=== PATIENT | male | born 1985 | race Caucasian/White ===

== ENCOUNTER 2019-05-20 05:22 | Observation (INO) | payer SELFPAY ==
[2019-05-20] VITALS (21 sets, daily range): BP systolic 108–176; BP diastolic 72–114; PULSE 81–102; RESP 14–22; TEMP 35.7–36.6; O2SAT 94–100; BMI 25.2
--- NOTE | 2019-05-20 | ECHO_ITS ---
Patient Info Name: Guero Hoover Age: 33 years : 1985 Gender: Male Ht: 67 in Wt: 159 lbs BSA: 1.86 m2 HR: 88 bpm BP: 149 / 94 mmHg Technical Quality: Good Exam Date: 05/20/2019 1:11 PM Exam Location: [facility] Pulmonary Patient Status: Outpatient Admit Date: 05/20/2019 Staff Ordering Physician: Rohith Mcneil DO Technology Manager: Sola Tello RDCS Attending Provider: Shiraz Pena MD Referring Physician: Tarun CALERO; Exam Type: CA echo doppler color flow Study Info Indications - ELEVATED TROPONIN R07.89 - Other chest pain - AORTIC VALVE REPLACEMENT Complete two-dimensional, color flow and Doppler transthoracic echocardiogram is performed. Summary 1. Left ventricular chamber dimension is normal. 2. Left ventricular systolic function is normal, estimated at 60-65%. 3. There is moderately increased left ventricular wall thickness. 4. The left ventricular diastolic function is abnormal. 5. E/e' 10 is mildly elevated. 6. Global longitudinal strain is abnormal at -13.9%. 7. The mechanical aortic valve is not well visualized. 8. There is no mechanical aortic valve stenosis. 9. There is no regurgitation of the mechanical aortic valve. 10. There is trace tricuspid valve regurgitation. 11. No pulmonary hypertension, estimated pulmonary arterial systolic pressure is 31 mmHg. Left Ventricle E/e' 10 is mildly elevated. Global longitudinal strain is abnormal at -13.9%. Left ventricular chamber dimension is normal. Left ventricular systolic function is normal, estimated at 60-65%. There is moderately increased left ventricular wall thickness. The left ventricular diastolic function is abnormal. Right Ventricle Right ventricular chamber dimension is normal. Right ventricular systolic function is normal. Left Atria Left atrial chamber dimension is normal. Right Atria Right atrial chamber dimension is normal. Aortic Valve The mechanical aortic valve is not well visualized. There is no mechanical aortic valve stenosis. There is no regurgitation of the mechanical aortic valve. Pulmonic Valve There is no pulmonic regurgitation. Mitral Valve There is no mitral valve stenosis. There is no mitral valve regurgitation. Tricuspid Valve There is trace tricuspid valve regurgitation. No pulmonary hypertension, estimated pulmonary arterial systolic pressure is 31 mmHg. Pericardium/Pleural There is no pericardial effusion. Inferior Vena Cava Normal inferior vena cava with >50% collapse upon inspiration consistent with normal right atrial pressure, 5 mmHg. Aorta The aortic root size at the sinus of Valsalva is normal. Left Ventricular Outflow Tract Name Value Normal LVOT 2D LVOT Diameter 2.0 cm LVOT Doppler LVOT Peak Gradient 30 mmHg LVOT Mean Gradient 19 mmHg LVOT VTI 57 cm LVOT VTI/AV VTI Ratio 0.9 LVOT Stroke Volume 187 ml LVOT CO 14.0 l/min LVOT CI 7.5 l/min/m2
--- NOTE | ~2019-05-20 | XR_ITS ---
EXAMINATION: XR chest 2V DATE: 05/20/2019 06:20 INDICATION: Chest pain. TECHNIQUE: Frontal and lateral views of the chest were obtained. COMPARISON: None. FINDINGS: The chest demonstrates clear lungs without pneumonia, pleural effusion, or pneumothorax. Th e heart size is normal. There are changes of heart valve replacement. IMPRESSION: 1. No acute cardiopulmonary disease. Reviewed, dictated and finalized at location A. [facility]
--- NOTE | 2019-05-20 05:45 | ECG_ITS ---
Measurements Intervals [place] Rate: 93 P: 119 VT: 162 QRS: 173 QRSD: 103 T: 152 QT: 363 QTc: 452 Interpretive Statements SINUS RHYTHM ARM LEADS REVERSED BASELINE ARTIFACT- I, II, III ATYPICAL ECG Electronically Signed On 05-20-2019 7:09:01 TRAINING MANAGER by Rohith Mcneil D.O.
[2019-05-20 06:02] LABS: Basophils Absolute Auto 0.1 K/mm3 (0.0-0.1); Basophils Percent Auto 0.5 % (0.2-1.2); Eosinophils Absolute Auto 0.1 K/mm3 (0-0.3); Eosinophils Percent Auto 0.6 % (0-4.4); Hematocrit 47.6 % (42.0-52.0); Hemoglobin 16.8 g/dL (14.0-18.0); Immature Granulocyte Absolute 0.05 K/mm3 (0.00-0.031); Immature Granulocyte Percent A 0.5 % (0-0.5); Lymphocytes Absolute Auto 1.12 K/mm3 (0.9-3.2); Lymphocytes Percent Auto 11.1 % (18.3-44.2); Mean Corpuscular HGB Conc 35.3 g/dl (32-36); Mean Corpuscular Hemoglobin 29.8 pg (26-34); Mean Corpuscular Volume 84.5 fl (80-100); Mean Platelet Volume 10.6 fl (7.4-10.4); Monocytes Percent Auto 9.7 % (2.6-8.5); Neutrophils Absolute Auto 7.9 K/mm3 (1.3-6.7); Neutrophils Percent Auto 77.6 % (45.5-73.1); Platelet Count Result 253 k/mm3 (150-375); Red Blood Count 5.63 M/mm3 (4.6-6.20); Red Cell Distribution Width 13.7 % (11.5-14.5); White Blood Count 10.1 K/mm3 (4.5-10.0)
--- NOTE | 2019-05-20 06:07 | ED.GENADULT ---
HPI - General Adult General Chief complaint: Chest Pain Stated complaint: Chest Pain Time Seen by Provider: 05/20/19 06:03 Source: patient and EMS Mode of arrival: EMS Limitations: no limitations History of Present Illness HPI narrative: Patient is a 33-year-old male with a history of aortic valve replacement who presents for evaluation of chest pain. Patient presented for evaluation of chest pain that awakened him from sleep. Reports the pain was sharp in nature located over the left chest with radiation to his back. He denies any history of chest pain such as this in the past. He reports feeling nauseated, no emesis. No shortness of breath. He for reports feeling warm. No jaw or shoulder pain. Patient is compliant with his anticoagulation. His aortic valve replacement was many years ago for a bicuspid valve at [facility]. He has had no complications from the surgery. Patient denies alcohol use, reports daily cigarette use approximately 1 pack/week, denies drug use, although EMS report stated that patient had been recently using methamphetamines. No recent heavy lifting. No numbness. Related Data Allergies Allergy/AdvReac Type Severity Reaction Status Date / Time No Known Allergies Allergy Mild Verified 05/20/19 07:15 Review of Systems Review of Systems: Narrative: CONSTITUTIONAL: Denies fever, chills, or sweats. CARDIOVASCULAR: Reports chest pain, denies palpitations or edema RESPIRATORY: Reports dry cough, denies dyspnea GASTROINTESTINAL: Denies abdominal pain, reports nausea, denies vomiting or diarrhea GENITOURINARY: Denies dysuria or hematuria. SKIN: Denies rash or itching. MUSCULOSKELETAL: Denies back pain, joint pain, or myalgia. NEUROLOGIC: Denies headache, numbness, or weakness. [facility] Past Medical History Medical History (Updated 05/20/19 @ 07:35 by Tory Weston MD) Bicuspid aortic valve Hypertension Surgical History Surgical History (Updated 05/20/19 @ 06:38 by Tory Weston MD) H/O aortic valve replacement Social History Social History (Updated 05/20/19 @ 06:38 by Tory Weston MD) Smoking status: Current every day smoker Tobacco type: cigarettes Alcohol intake: former Substance use: former Living arrangements: with family Gender identity (if verbalized by the patient): Male Exam Narrative: Exam Narrative: GENERAL: Well-appearing, well-nourished, and in no acute distress. HEAD: Normocephalic, atraumatic. EYES: PERRLA and EOMI. ENT: Nares clear, no rhinorrhea or epistaxis. Mucous membranes moist. NECK: Supple. CHEST: Clear to auscultation. No respiratory distress. No chest wall tenderness over the left chest. HEART: Regular rate and rhythm. No murmur heard. Normal peripheral pulses. ABDOMEN: Soft, no epigastric tenderness, no umbilical tenderness, nontender, nondistended, normal active bowel sounds. No guarding. EXTREMITIES: Normal range of motion. No edema. SKIN: Warm, dry, no rash. NEURO: No focal deficits. Alert and oriented x3 Course Vital Signs Vital signs: Vital Signs Pulse Rate 93 05/20/19 05:23 Temperature 36.5 C 05/20/19 05:24 Pulse Rate 92 05/20/19 07:28 Respiratory Rate 14 05/20/19 07:28 Blood Pressure 167/114 H 05/20/19 07:28 Pulse Oximetry 100 05/20/19 07:28 Medical Decision Making [facility] Narrative Medical decision making narrative: Patient presented for evaluation of chest pain. Given history and risk factors, he does have a heart score of 4. We have a urine drug screen pending on this point, although patient does deny history of drug use, there was some different collateral history provided by EMS regardless of this, the patient's troponin is mildly elevated. Cardiology was consulted, we will keep him for troponin monitoring and symptom management. I did feel his EKG looked improved following treatment with nitroglycerin and pain medication. I do not feel the patient requires heparin at this point given he is a
[2019-05-20 06:12] LABS: Prothrombin Time 13.2 Seconds (11.1-14.7)
[2019-05-20 06:13] LABS: Partial Thromboplastin Time 29.9 SECONDS (22.3-36.8)
[2019-05-20 06:14] LABS: Blood Urea Nitrogen 26 mg/dL (9-20); Calcium 9.1 mg/dL (8.4-10.2); Carbon Dioxide 17 mmol/L (22-30); Chloride 100 mmol/L (98-107); Estimated CRCL calculation 79 ml/min; Estimated Glomerular Filt Rate > 60; Glucose 71 mg/dL (75-110); Potassium 4.1 mmol/L (3.4-5.0); Sodium 134 mmol/L (137-145)
[2019-05-20 06:29] LABS: Troponin I 0.058 ng/mL (0.000-0.034)
--- NOTE | 2019-05-20 06:34 | ECG_ITS ---
Measurements Intervals [place] Rate: 92 P: 57 VA: 163 QRS: 13 QRSD: 102 T: 46 QT: 380 QTc: 472 Interpretive Statements SINUS RHYTHM BASELINE ARTIFACT- I, II, AVR, AVF NORMAL ECG Electronically Signed On 05-20-2019 7:09:23 GRAPHOTYPE OPERATOR by Rohith Mcneil D.O.
[2019-05-20] MEDS: ASPIRIN 81 MG CHEWABLE TABLET 324 MG PO (06:55)
[2019-05-20] MEDS: ONDANSETRON INJ 4 MG/2 ML VIAL IV PUSH (07:27)
[2019-05-20] MEDS: SODIUM CHLORIDE 0.9% IV 500 ML 999 ML IV CONT (07:27)
[2019-05-20] MEDS: MORPHINE SULFATE 4 MG/ML INJ IV PUSH (07:28)
[2019-05-20] MEDS: NITROGLYCERIN SL 0.4 MG TABLET SUBLINGUAL (07:28)
--- NOTE | 2019-05-20 07:32 | PC.NURSE ---
1 Nitro 0.4mg SL given at 0732 vitals are as follows BP 108/79 RR 20 SpO2 100% room air HR 99 pain 8/10 2nd Nitro 0.4 held, patient refused medication BP 159/101 RR 16 SpO2 100% HR 100 pain 7
--- NOTE | 2019-05-20 08:24 | PC.NURSE ---
Patient requesting mother and father to visit in ED, per Eleno RICHARDS, patient is not allowed visitors. Patient made aware.
--- NOTE | 2019-05-20 08:29 | PC.NURSE ---
This attempted to call patient's parents x2 home phone [phone] cell phone [phone] Patient's father called back and was updated on patient's condition and care plan. Father (Guero) states that he understood and not give him any vitamin K while here. Patient made aware that parents were contacted.
--- NOTE | 2019-05-20 08:35 | PC.NURSE ---
Patient refused to give urine sample
--- NOTE | 2019-05-20 09:30 | PC.NURSE ---
This patient, Guero Hoover III, was admitted to IMU Room 214-01. Patient/family oriented to hospital policies and general routines including ID bracelet, bed and alarms, visiting hours, pain management, procedures, bathroom and other care routines, personal items, smoking policy, room service/diet, and visiting hours. Valuables list has been completed. Information on how to activate the Rapid Response Team has been discussed. Patient/Family are encouraged to report perceived risks to care and to ask questions if they do not understand what they are told or what they should do.
[2019-05-20 10:52] LABS: Troponin I 0.054 ng/mL (0.000-0.034)
--- NOTE | 2019-05-20 12:44 | PM.IMHP ---
H&P: HPI History of Present Illness Chief complaint: Chest Pain/Elevated troponin Narrative: Guero Hoover III is a 33 year old male who is a poor historian at this time. The patient is covering his eyes will not look at me or answer any of my questions. However the nurse tells me that he was just alert oriented x3 was answering questions without difficulty. He told the nurse that he has aortic valve replacement from when he was about 14 years old. This was performed at [facility].The patient told the nurse that he did take Coumadin this morning however his INR is only 1.0. He is sub therapeutic reviewing his past INRs he has been sub therapeutic for quite some time. However he did tell the nurse that he is still on Coumadin. The patient told the nurse that he was eluting the police officials not say why. Patient came in with complaints of chest pain that was sharp in nature located on the left chest with radiation to his back patient was also feeling nauseated but did not have any emesis. No shortness of breath. Patient continues to smoke about 2 packs of cigarettes a day. EMS reports poor stated that the patient had been recently using methamphetamines. Date of service 05/20/2019 patient's troponin levels were 0.058, 0.054, and 0.050. Patient is currently resting with his eyes closed and will not open them to answer my questions. Review of Systems Review of Systems: Narrative: Unable to retrieve information from the patient as he is covering his eyes answer any my questions. All systems reviewed & are unremarkable except as noted in HPI and below Constitutional: Constitutional: Reports as per HPI and Reports no additional constitutional complaints Eyes: Eyes: Reports as per HPI and Reports no additional eye complaints ENT: Reports system reviewed and no additional complaints, except as documented and Reports Normal hearing present Cardiovascular: Cardiovascular: Reports no additional cardiovascular complaints Respiratory: Respiratory: Reports no additional respiratory complaints and Reports no additional respiratory complaints Gastrointestinal: Gastrointestinal: Reports as per HPI and Reports no additional gastrointestinal complaints Musculoskeletal: Musculoskeletal: Reports no additional musculoskeletal complaints Integumentary/Breasts: Skin/Breast: Reports system reviewed and no additional complaints, except as docu and Reports as per HPI Neurologic: Reports system reviewed and no additional complaints, except as documented, Reports as per HPI and Reports Normal hearing present Psychiatric: Psychiatric: Reports no additional psychiatric complaints and Reports as per HPI Endocrine: Endocrine: Reports no additional endocrine complaints Hematologic/Lymphatic: Hematologic/Lymphatic: Reports no additional hematologic/lymphatic complaints Allergic/Immunologic: Allergic/Immunologic: Reports no additional allergic/immunologic complaints [facility] Past Medical History Medical History (Updated 05/20/19 @ 12:56 by Monique Corral NP) Amphetamine use disorder, mild As per EMS report. Bicuspid aortic valve Hypertension Surgical History Surgical History H/O aortic valve replacement Family History Family History Father Hypertension Other Cerebrovascular accident Social History Social History (Updated 05/20/19 @ 13:11 by Monique Corral NP) Social History: Patient lives with his parents. According to the nurse the patient decided to be a full code. Who reported to the nurse that he uses marijuana. And that he also smokes 2 cigarettes a day for the last 2 years. Years smoked: 2 Smoking status: Light tobacco smoker Tobacco type: cigarettes Alcohol intake: former Substance use: current Substance use type: marijuana Last use: daily Living arrangements: with family Occupation/Education
--- NOTE | 2019-05-20 13:08 | PM.CNCAR ---
Assessment and Plan Assessment and plan (1) Bicuspid aortic valve: Code(s): Q23.1 - Congenital insufficiency of aortic valve Status: Chronic Assessment and Plan: Per records, he had AVR. If it is a mechanical aortic valve, then he would need heparin drip or Lovenox bridge with Coumadin to INR 2.5. Obtain echo if he allows. (2) Atypical chest pain: Code(s): R07.89 - Other chest pain Status: Acute Assessment and Plan: No longer with chest pain. (3) Elevated troponin: Code(s): R79.89 - Other specified abnormal findings of blood chemistry Status: Acute Assessment and Plan: Mild and flat. Could be related to Methamphetamines. Would obtain Lexiscan myoview stress test if he is willing. History of Present Illness History of Present Illness Consult date/time: 05/20/19 13:08 Consult regarding chest pain. 33 yr old man who is not communicating with me or answering any of my questions. His eyes are closed and he just mumbles uh huh to everything I ask. I saw him in ER earlier but he refused to see me at the time and he had eyes open and speaking with security. I left and now I returned to speak with him on the medical floor. He is not willing to speak to me. He does not appear to be in distress and no pain at this time. Per the ER note he had chest pain that woke him up. Troponin is flat and slightly elevated. There is suspicioun he used methamphetamines. Per the notes he has a history of bicuspid aortic valve and AVR and on Coumadin for it, though levels are very subtherapeutic. Cannot obtain ROS. Reason For Visit: Chest Pain/Elevated troponin [facility] Past Medical History Medical History (Updated 05/20/19 @ 12:56 by Monique Corral NP) Amphetamine use disorder, mild As per EMS report. Bicuspid aortic valve Hypertension Surgical History Surgical History H/O aortic valve replacement Family History Family History Father Hypertension Other Cerebrovascular accident Social History Social History (Updated 05/20/19 @ 12:50 by Monique Corral NP) Social History: Patient lives with his parents. According to the nurse the patient decided to be a full code. Who reported to the nurse that he uses marijuana. And that he also smokes 2 cigarettes a day for the last 2 years. Years smoked: 2 Smoking status: Light tobacco smoker Tobacco type: cigarettes Alcohol intake: former Substance use: current Substance use type: marijuana Last use: daily Living arrangements: with family Occupation/Education: other Gender identity (if verbalized by the patient): Male Spiritual care concerns: No Agree to blood products: Yes Meds Home Medications and Allergies Home Medications Medication Instructions Recorded Confirmed Type warfarin 5 mg PO DAILY 05/20/19 05/20/19 History Allergies Allergy/AdvReac Type Severity Reaction Status Date / Time No Known Allergies Allergy Mild Verified 05/20/19 08:39 Vital Signs Vital Signs - 24 hr 05/20/19 05:23 05/20/19 05:24 05/20/19 07:28 Temperature 97.7 F Pulse Rate 93 98 92 Respiratory Rate 22 H 14 Blood Pressure 176/100 H 167/114 H Pulse Oximetry 99 100 05/20/19 07:32 05/20/19 07:38 05/20/19 07:42 Temperature Pulse Rate 92 100 101 H Respiratory Rate 17 18 19 Blood Pressure 108/79 159/101 H 153/93 H Pulse Oximetry 99 99 100 05/20/19 08:01 05/20/19 08:16 05/20/19 09:15 Temperature Pulse Rate 100 93 93 Respiratory Rate 15 15 18 Blood Pressure 130/88 149/94 H Pulse Oximetry 100 100 05/20/19 09:29 05/20/19 10:00 05/20/19 11:52 Temperature 97.7 F 97.1 F L Pulse Rate 93 93 93 Respiratory Rate 20 22 H Blood Pressure 154/85 H 124/75 Pulse Oximetry 100 96 05/20/19 12:00 05/20/19 12:32 Temperature Pulse Rate 93 Respiratory Rate 22 H Blood Pr
[2019-05-20] MEDS: HEPARIN SODIUM 5,000 UNITS/ML VIAL 6000 UNITS IV PUSH (13:54)
[2019-05-20] MEDS: HEPARIN SOD/D5W 100 UNITS/ML 25,000 UNITS/250 ML BAG 13 UNITS IV CONT (13:55)
[2019-05-20 15:09] LABS: Basophils Absolute Auto 0.1 K/mm3 (0.0-0.1); Basophils Percent Auto 0.7 % (0.2-1.2); Eosinophils Absolute Auto 0.3 K/mm3 (0-0.3); Eosinophils Percent Auto 4.7 % (0-4.4); Hematocrit 42.7 % (42.0-52.0); Immature Granulocyte Absolute 0.03 K/mm3 (0.00-0.031); Immature Granulocyte Percent A 0.4 % (0-0.5); Lymphocytes Absolute Auto 1.99 K/mm3 (0.9-3.2); Lymphocytes Percent Auto 27.5 % (18.3-44.2); Mean Corpuscular HGB Conc 35.1 g/dl (32-36); Mean Corpuscular Hemoglobin 29.9 pg (26-34); Mean Corpuscular Volume 85.2 fl (80-100); Mean Platelet Volume 10.9 fl (7.4-10.4); Monocytes Absolute Auto 0.9 K/mm3 (0.1-0.6); Neutrophils Absolute Auto 3.9 K/mm3 (1.3-6.7); Neutrophils Percent Auto 53.7 % (45.5-73.1); Platelet Count Result 219 k/mm3 (150-375); Red Blood Count 5.01 M/mm3 (4.6-6.20); Red Cell Distribution Width 13.7 % (11.5-14.5); White Blood Count 7.2 K/mm3 (4.5-10.0)
[2019-05-20 15:20] LABS: INR 1.2
[2019-05-20 20:55] LABS: Partial Thromboplastin Time > 200.0 SECONDS (22.3-36.8)
[2019-05-21] VITALS (8 sets, daily range): BP systolic 127–139; BP diastolic 64–83; PULSE 67–96; RESP 16–20; TEMP 36.7–36.8; O2SAT 97–99
[2019-05-21 04:46] LABS: Basophils Percent Auto 0.8 % (0.2-1.2); Eosinophils Absolute Auto 0.4 K/mm3 (0-0.3); Eosinophils Percent Auto 6.6 % (0-4.4); Hematocrit 43.7 % (42.0-52.0); Hemoglobin 15.5 g/dL (14.0-18.0); Immature Granulocyte Absolute 0.01 K/mm3 (0.00-0.031); Immature Granulocyte Percent A 0.2 % (0-0.5); Lymphocytes Absolute Auto 1.92 K/mm3 (0.9-3.2); Lymphocytes Percent Auto 36.4 % (18.3-44.2); Mean Corpuscular HGB Conc 35.5 g/dl (32-36); Mean Corpuscular Volume 84.7 fl (80-100); Mean Platelet Volume 10.4 fl (7.4-10.4); Monocytes Absolute Auto 0.6 K/mm3 (0.1-0.6); Neutrophils Absolute Auto 2.4 K/mm3 (1.3-6.7); Platelet Count Result 196 k/mm3 (150-375); Red Blood Count 5.16 M/mm3 (4.6-6.20); Red Cell Distribution Width 13.5 % (11.5-14.5); White Blood Count 5.3 K/mm3 (4.5-10.0)
[2019-05-21 04:55] LABS: INR 1.1; Prothrombin Time 14.3 Seconds (11.1-14.7)
[2019-05-21 04:57] LABS: Partial Thromboplastin Time 91.1 SECONDS (22.3-36.8)
[2019-05-21 05:21] LABS: Alanine Aminotransferase 24 U/L (4-50); Alkaline Phosphatase 71 U/L (38-126); Aspartate Amino Transferase 35 U/L (17-59); Bilirubin,Total 0.6 mg/dL (0.2-1.3); Blood Urea Nitrogen 20 mg/dL (9-20); Calcium 8.6 mg/dL (8.4-10.2); Carbon Dioxide 26 mmol/L (22-30); Chloride 100 mmol/L (98-107); Estimated CRCL calculation 95 ml/min; Estimated Glomerular Filt Rate > 60; Glucose 103 mg/dL (75-110); Magnesium 2.1 mg/dL (1.6-2.3); Potassium 3.9 mmol/L (3.4-5.0); Sodium 135 mmol/L (137-145)
[2019-05-21 05:57] LABS: Thyroid Stimulating Hormone Reflex 0.295 uIU/mL (0.465-4.68)
[2019-05-21 07:04] LABS: Add Urine Microscopic? YES; Appearance Urine Clear (Clear); Bilirubin Urine Negative (Negative); Blood Urine Negative (Negative); Color Urine Yellow (Yellow); Glucose Urine UA Negative (Negative); Hyaline Casts Urine 20-29 /lpf; Ketones Urine Trace mg/dL (Negative); Leukocyte Esterase Ur Negative LEU/UL (Negative); Mucus Urine Rare /lpf; Nitrate Urine Negative (Negative); Protein Urine Negative (Negative); RBC Urine 0-2 /hpf (0-2); Specific Grav Ur 1.021 (1.001-1.035); Squamous Epithelial Cell Urine Rare /hpf (Few); Urobilinogen Urine Negative mg/dL (<2.0)
[2019-05-21 07:12] LABS: Barbiturate Screen Urine Negative (Negative); Benzodiazepines Screen Urine Negative (Negative)
[2019-05-21 07:25] LABS: Cannabinoid Screen Urine Positive (Negative); Cocaine Screen Urine Negative (Negative); Methadone Screen Urine Negative (Negative); Opiate Screen Urine Positive (Negative); Phencyclidine Screen Urine Negative (Negative)
[2019-05-21 07:52] LABS: Amphetamine Screen Urine Positive (Negative)
[2019-05-21] MEDS: ACETAMINOPHEN 325 MG TABLET 650 MG PO (08:21)
--- NOTE | 2019-05-21 08:26 | PM.PNCARD ---
Progress Note: A&P Assessment and Plan (1) Atypical chest pain: Code(s): R07.89 - Other chest pain Status: Acute Assessment and Plan: Resolved. (2) Elevated troponin: Code(s): R79.89 - Other specified abnormal findings of blood chemistry Status: Acute Assessment and Plan: Probably related to methamphetamine use. Echo shows no wall motion abnormality with normal EF. No further cardiac workup needed at this time. (3) H/O mechanical aortic valve replacement: Code(s): Z95.2 - Presence of prosthetic heart valve Status: Acute Assessment and Plan: Replacement for a unicuspid valve. Advise the importance of keeping INR 2.5-3.0 as he missed about a week's worth of warfarin recently. He is on heparin drip now and warfarin restarted. He may go home on Lovenox shots (if affordable) 1 mg/kg SQ q 12 hours along with warfarin daily and check INR in 3 days. He can either obtain a PCP or return to same [facility] group though his car body designer left the practice, or he can f/u with me. Subjective Date/time seen: 05/21/19 08:26 He is awake and cooperative this morning. Denies any more chest pain. No sob. He had a unicuspid aortic valve that was replaced with mechanical aortic valve. He was seeing a car body designer with [facility] but the car body designer moved away. He has no insurance and no PCP. Exam Const: General: comfortable and no acute distress Neck: Neck: no JVD Carotids: no bruits Resp: Auscultation: clear to auscultation bilaterally, no crackles, no rales, no rhonchi and no wheezes Cardio: Rate: regular rate Rhythm: regular rhythm Heart sounds: no murmurs GI: Inspection: non-distended Neuro: Speech: normal speech Extrem: Right lower extremity: no edema Left lower extremity: no edema Objective Data Vital Signs Vital Signs: Vital Signs - 24 hr 05/20/19 09:15 05/20/19 09:29 05/20/19 10:00 Temperature 97.7 F Pulse Rate 93 93 93 Respiratory Rate 18 20 Blood Pressure 154/85 H Pulse Oximetry 100 100 05/20/19 11:52 05/20/19 12:00 05/20/19 12:32 Temperature 97.1 F L Pulse Rate 93 102 H Respiratory Rate 22 H 22 H Blood Pressure 124/75 Pulse Oximetry 96 96 94 05/20/19 14:00 05/20/19 16:00 05/20/19 16:51 Temperature 96.2 F L Pulse Rate 101 H 89 87 Respiratory Rate 22 H 22 H Blood Pressure 130/79 Pulse Oximetry 94 98 05/20/19 18:00 05/20/19 19:55 05/20/19 20:00 Temperature 97.8 F Pulse Rate 81 92 88 Respiratory Rate 20 Blood Pressure 119/72 Pulse Oximetry 99 05/20/19 22:00 05/21/19 00:00 05/21/19 02:00 Temperature 98.2 F Pulse Rate 82 81 74 Respiratory Rate 20 Blood Pressure 127/83 Pulse Oximetry 97 05/21/19 04:00 05/21/19 06:00 05/21/19 07:13 Temperature 98.0 F 98.0 F Pulse Rate 67 73 67 Respiratory Rate 18 20 Blood Pressure 130/77 129/64 Pulse Oximetry 99 98 Intake/Output Intake/Output: Intake & Output 05/18/19 05/19/19 05/20/19 05/21/19 23:59 23:59 23:59 23:59 Intake Total 1410 1303 Output Total 650 Balance 1410 653 Meds/Results Medications: Active Medications Generic Name Dose Route Start Last Admin Trade Name Freq PRN Reason Stop Dose Admin Acetaminophen 650 mg 05/20/19 07:28 05/21/19 08:21 Tylenol Tablet PO 650 mg Q4H PRN Administration Mild Pain (1-3) or Fever Heparin Sodium (Porcine) 6,000 units 05/20/19 13:15 Heparin Sodium IV PUSH PRN PRN aPTT less than 55 seconds Heparin Sodium (Porcine) 3,000 units 05/20/19 13:15 Heparin Sodium IV PUSH PRN PRN aPTT 55 - 70 seconds Heparin Sodium/Dextrose 25,000 units in 250 mls @ 11 mls/hr 05/20/19 13:15 05/21/19 05:49 Heparin Sodium/D5w 100 Units/Ml IV CONT 1,100 units/hr .[id number] AKUA 11 mls/hr Titration Protocol 1,100 UNITS/HR Nitroglycerin 0.4 mg 05/20/19 07:28 Nitrostat Subl 0.4 Mg (1/150) SUBLINGUAL Q5MIN PRN Chest Pain Ondansetron
[2019-05-21 09:50] LABS: Free T4 Free Thyroxine Reflex 1.49 ng/dL (0.78-2.19)
[2019-05-21 10:39] LABS: Total Triiodothyronine (T3) 1.02 NG/ML (0.97-1.69)
[2019-05-21 10:43] LABS: Partial Thromboplastin Time 77.9 SECONDS (22.3-36.8)
--- NOTE | 2019-05-21 12:12 | PM.DS ---
DS: Diagnosis Admitting Diagnosis Admitting Diagnosis: Other chest pain Discharge Diagnosis (1) Atypical chest pain: Code(s): R07.89 - Other chest pain Status: Acute Assessment and Plan: Patient's troponin levels are stable. There level and unchanged. The patients urine drug screen was positive for opiates, amphetamines and cannabinoids. Dr. Mcneil was consulted and he evaluated the patient and read his echocardiogram which showed Left ventricular chamber dimension is normal, Left ventricular systolic function is normal, estimated at 60-65%. There is moderately increased left ventricular wall thickness. The left ventricular diastolic function is abnormal. The mechanical aortic valve is not well visualized. The patient is not having any more chest discomfort at this time and is stable for discharge home. The patient can follow up with [facility] or can follow up with Dr. Mcneil in the office. He understands and agrees with the plan at this time. All questions answered (2) Elevated troponin: Code(s): R79.89 - Other specified abnormal findings of blood chemistry Status: Acute Assessment and Plan: Patient's troponin levels are unchanged. He denies any chest pain at this time. He is stable for discharge to follow up with Cardiology. (3) Bicuspid aortic valve: Code(s): Q23.1 - Congenital insufficiency of aortic valve Status: Chronic Assessment and Plan: Continue with patient's Coumadin for now as he is subtherapeutic his INR is only 1.0. Will continue to monitor and recheck in 2 days. (4) Subtherapeutic international normalized ratio (INR): Code(s): R79.1 - Abnormal coagulation profile Status: Acute Assessment and Plan: INR was 1.[address] Mcneil Cardiology who agreed with the patient to continue on Coumadin therapy and recommended Lovenox SQ injections while his INR is subtherapeutic. Discharge on continued Coumadin Therapy 5 mg daily and SubQ Lovenox 74mg Q12hrs for 7 days. I explained to the patient that it is very important that he take his Coumadin daily and get his INR checked regularly and continue with Coumadin diet. Will have the patient check his INR in 2 days, Sunday. DS: Summary Hospital Course Reason for hospitalization: The patient is a 33 year old man with a history of Aortic valve replacement when he was 14 years old and substance abuse, who presented to the ER with symptoms of chest pain. Vitals showed temperature of 97.7?, blood pressure 176/100, heart rate 98, respiratory rate 22, oxygen saturation 99% on room air. Labs showed slight leukocytosis at 10,100, normal coag panel with INR at 1.0 which is subtherapeutic while Coumadin, hyponatremia 134, serum bicarbonate 17, creatinine 1.1, BUN 26, otherwise normal. Initial troponin was 0.058, then repeat was 0.050 trending down. Patient had a normal urinalysis. His urine drug screen was positive for opiates, amphetamines and cannabinoids. EKG showed normal sinus rhythm with a heart rate of 93, baseline artifact otherwise no acute ST-T wave abnormality. Chest x-ray showed acute cardiopulmonary disease. Echocardiogram showed normal systolic function of the EF is 60-65%, moderate LVH, mechanical aortic valve which was not well visualized. Patient was admitted into the hospital under observation status for further evaluation of chest pain and had a cardiology consult. Cardiology evaluated the patient and felt that his elevated troponins were most likely from his amphetamine use. Since his INR was subtherapeutic we discharged the patient to continue taking his Coumadin and added Lovenox injections subcuq q.12 hours for 7 days and until his INR is therapeutic. He follows up at [facility] with Pr
== END 2019-05-21 14:21 | disposition home or self-care (01) ==
LOC: ANHED 07:46 → ANHIMU 07:50
PROVIDERS: Emergency Medicine; Nurse Practitioner; Admitting Provider Internal Medicine; Emergency Provider Emergency Medicine; Visit Provider Physician Assistant
DX: R07.89 Other chest pain (principal); R79.89 Other specified abnormal findings of blood chemistry; R79.1 Abnormal coagulation profile; F19.10 Other psychoactive substance abuse, uncomplicated; R82.5 Elevated urine levels of drugs, medicaments and biological substances; F17.210 Nicotine dependence, cigarettes, uncomplicated; E87.1 Hypo-osmolality and hyponatremia; I10 Essential (primary) hypertension; Z87.74 Personal history of (corrected) congenital malformations of heart and circulatory system; Z79.01 Long term (current) use of anticoagulants; Z95.2 Presence of prosthetic heart valve
CPT/HCPCS: 36415; 71046; 80048; 80053; 80307; 81001; 83735; 84439; 84443; 84480; 84484; 85025; 85610; 85730; 93005; 93306; 96361; 96365; 96366; 96375; 99285; A9270; G0378; J1644; J2270; J2405; J7040

== ENCOUNTER 2020-07-27 16:22 | Outpatient (CLI) | payer BC, SELFPAY | END 2020-07-27 16:23 | disposition home or self-care (01) | LOC: ANHCOVIDVC 16:22 | DX: Z23 Encounter for immunization (principal) | CPT/HCPCS: 0001A; 91300 ==

== ENCOUNTER 2020-08-19 16:19 | Outpatient (CLI) | payer BC, SELFPAY | END 2020-08-19 16:20 | disposition home or self-care (01) | LOC: ANHCOVIDVC 16:19 | DX: Z23 Encounter for immunization (principal) | CPT/HCPCS: 0002A; 91300 ==

== ENCOUNTER 2020-09-24 09:17 | Outpatient (CLI) | payer BC, SELFPAY ==
--- NOTE | ~2020-09-24 | US_ITS ---
EXAMINATION: US abdomen complete EXAM DATE: 09/24/2020 10:10 INDICATION: Abdominal pain. TECHNIQUE: Multiple grayscale and Doppler images of the complete abdomen were obtained (by a technolo gist who performed the scan) and subsequently reviewed. There is no prior study for comparison. FINDINGS: The abdominal aorta is normal in caliber. Visualized portion IVC is patent. The pancreatic head a nd body are normal in appearance. The pancreatic tail is not visualized. There is echogenic liver parenchyma, hepatic steatosis. There are no focal liver lesions identified. There is no evidence of intrahepatic biliary duct dilation. Portal venous flow was seen in the he patopedal, normal direction and has normal Doppler waveform. Common bile duct measures 4 mm, which is normal. The gallbladder wall is normal in thickness, with ex pected amount of distention. No sonographic evidence of pericholecystic fluid. There is no cholelit hiases. Technologist performing exam reports patient did not demonstrate sonographic Rankin's sign. Please note that this sign is less reliable in patients who have received pain medication. Right kidney: There is normal contour and echogenicity. It measures 9.9 x 4.9 x 5.9 centimeters. T here are no focal renal lesions identified. There is no hydronephrosis. Left kidney: There is normal contour and echogenicity. It measures 9.8 x 4.5 x 4.6 centimeters. Th ere are no focal renal lesions identified. There is no hydronephrosis. The spleen measures 13 centimeters and is morphologically normal. IMPRESSION: 1. Hepatic steatosis. Reviewed, dictated and finalized at location A. IMPRESSION: 1. Hepatic steatosis.
== END 2020-09-24 09:18 | disposition home or self-care (01) ==
PROVIDERS: PCP Physician Assistant; Visit Provider Physician Assistant
DX: K76.0 Fatty (change of) liver, not elsewhere classified (principal)
CPT/HCPCS: 76700

== ENCOUNTER 2020-10-01 14:24 | Outpatient (CLI) | payer BC, SELFPAY ==
--- NOTE | 2020-10-01 | ECHO_ITS ---
Patient Info Name: Guero Hoover Age: 34 years : 1985 Gender: Male Ht: 67 in Wt: 215 lbs BSA: 2.18 m2 HR: 77 bpm BP: 154 / 93 mmHg Technical Quality: Fair Exam Date: 10/01/2020 2:53 PM Exam Location: [facility] Patient Status: Outpatient Admit Date: 10/01/2020 Staff Ordering Physician: LEAH MATAMOROS Line Decorator: Jasmyne Henderson RDCS Attending Provider: LEAH MATAMOROS Exam Type: CA echo doppler color flow Study Info Indications - AVR CONGENINTAL INSUFFICIENCY OF AOV Complete two-dimentional, color flow and Doppler transthoracic echocardiogram is performed with agitated saline and with contrast to opacify the left ventricle and to improve the delineation of the left ventricle endocardial borders. Complete two-dimensional, color flow and Doppler transthoracic echocardiogram is performed. Summary 1. Complete two-dimensional, color flow and Doppler transthoracic echocardiogram is performed. 2. Left ventricular chamber dimension is normal. 3. Left ventricular systolic function is normal, estimated at 60-65%. 4. There is mildly increased left ventricular wall thickness. 5. The left ventricular diastolic function is normal. 6. E/e' 7 is not elevated. 7. There is trace regurgitation of the mechanical aortic valve. 8. No pulmonary hypertension, estimated pulmonary arterial systolic pressure is 29 mmHg. 9. There is mild pulmonic regurgitation. Left Ventricle E/e' 7 is not elevated. Left ventricular chamber dimension is normal. Left ventricular systolic function is normal, estimated at 60-65%. There is mildly increased left ventricular wall thickness. The left ventricular diastolic function is normal. Right Ventricle Right ventricular chamber dimension is normal. Right ventricular systolic function is normal. Left Atria Left atrial chamber dimension is normal. Right Atria Right atrial chamber dimension is normal. Aortic Valve The mechanical aortic valve is not well visualized. There is no mechanical aortic valve stenosis. There is trace regurgitation of the mechanical aortic valve. Pulmonic Valve There is mild pulmonic regurgitation. Mitral Valve There is no mitral valve stenosis. There is no mitral valve regurgitation. Tricuspid Valve There is no tricuspid valve regurgitation. No pulmonary hypertension, estimated pulmonary arterial systolic pressure is 29 mmHg. Pericardium/Pleural There is no pericardial effusion. Inferior Vena Cava Normal inferior vena cava with >50% collapse upon inspiration consistent with normal right atrial pressure, 5 mmHg. Aorta The aortic root size at the sinus of Valsalva is normal. Left Ventricular Outflow Tract Name Value Normal LVOT 2D LVOT Diameter 2.2 cm LVOT Doppler LVOT Peak Gradient 5 mmHg LVOT Mean Gradient 3 mmHg LVOT VTI 28 cm LVOT VTI/AV VTI Ratio 0.4 LVOT Stroke Volume 105 ml LVOT CO 19.1 l/min LVOT CI 8
== END 2020-10-01 14:25 | disposition home or self-care (01) ==
PROVIDERS: PCP Physician Assistant
DX: Q23.1 Congenital insufficiency of aortic valve (principal); I37.1 Nonrheumatic pulmonary valve insufficiency
CPT/HCPCS: 93306

== ENCOUNTER 2020-12-01 10:03 | Outpatient (CLI) | payer BC, SELFPAY ==
--- NOTE | ~2020-12-01 | CT_ITS ---
EXAMINATION: CT diagnostic chest wo con DATE: 12/01/2020 10:18 INDICATION: Acquired subglottic stenosis TECHNIQUE: Computed tomography (CT) of the chest was performed without intravenous contrast. The dose -length product was 529.16 mGy-cm. Automated exposure control and iterative reconstruction technique were employed. COMPARISON: Chest x-ray dated 05/20/2019 FINDINGS: Heart size normal. No significant pleural or pericardial effusion. The upper abdomen is unr emarkable. No thoracic lymphadenopathy. Thyroid gland is within normal limits. There is a prosthetic aortic valve. No focal airspace consolidation. No endobronchial lesions. Calcified granulomas are pre sent in the left lung. No pneumothorax. Status post median sternotomy. No acute osseous abnormality. IMPRESSION: 1. No acute cardiopulmonary disease. Reviewed, dictated and finalized at location A.
== END 2020-12-01 10:04 | disposition home or self-care (01) ==
PROVIDERS: PCP Physician Assistant
DX: J38.6 Stenosis of larynx (principal)
CPT/HCPCS: 71250

== ENCOUNTER 2020-12-17 14:40 | Outpatient (CLI) | payer BC, SELFPAY ==
--- NOTE | ~2020-12-17 | CT_ITS ---
EXAMINATION: CT soft tissue neck w con DATE: 12/17/2020 15:33 INDICATION: Subglottic stenosis. TECHNIQUE: Computed tomography (CT) of the neck was performed with 75 mL Omnipaque-350 intravenous co ntrast. Automated exposure control and iterative reconstruction technique were employed. The dose-rojelio gth product was 506.72 mGy-cm. COMPARISON: Chest CT 12/01/2020 FINDINGS: A calcified left lung nodule is consistent with old granulomatous disease. The trachea is n ormal. There are no pathologically enlarged lymph nodes. The mastoid air cells are normal. There is a n old blowout fracture of floor of left orbit. There is kyphosis of cervical spine. Median sternotomy wires are noted. IMPRESSION: 1. Normal trachea. Reviewed, dictated and finalized at location A. IMPRESSION: 1. Normal trachea.
== END 2020-12-17 14:41 | disposition home or self-care (01) ==
LOC: ANHIMG 14:41
PROVIDERS: PCP Physician Assistant; Visit Provider Otolaryngology
DX: J38.6 Stenosis of larynx (principal)
CPT/HCPCS: 70491; Q9967

== ENCOUNTER 2021-01-10 06:41 | Emergency (ER) | payer BC, SELFPAY ==
[2021-01-10] VITALS (66 sets, daily range): BP systolic 128–216; BP diastolic 79–111; PULSE 60–124; RESP 9–21; TEMP 36.3–36.7; O2SAT 92–99
--- NOTE | ~2021-01-10 | CT_ITS ---
EXAMINATION: CT soft tissue neck w con EXAM DATE: 01/10/2021 10:30 INDICATION: Right jaw pain/facial pain. TECHNIQUE: Spiral CT of the neck was performed following intravenous injection of 75 mL Omnipaque 350 . Axial, coronal and sagittal images were reviewed. The dose-length product (DLP) for this examinat ion was 566.15 mGy-cm. The exposure was tailored according to patient size (auto mA exposure control ), and iterative reconstruction (ASIR) was used as additional dose reduction technique. Comparison is made to prior examination from 12/17/2020. FINDINGS: There is a focal fluid collection in the right temporalis muscle, medial to the mandible, m easuring 2.3 x 1.9 cm, with proteinaceous fluid/ fluid level most likely intramuscular hematoma. (see axial sequence 3 image 36). The proteinaceous component measures 65 Hounsfield units consistent with acute blood products. There is some edema along the right side of the face both superficial and loc p to the platysmas muscle. This is new compared to prior study earlier this month. The thyroid gland is unremarkable. The submandibular and parotid glands are symmetric. There is n o cervical lymphadenopathy. There are no masses identified. The superior mediastinum is unremarka ble. The airway is unremarkable. Parapharyngeal and pre-glottic fat planes are preserved. The o pacified vasculature is patent. The orbits are unremarkable. Visualized sinuses and mastoid air c ells are well aerated. Lung apices are clear. There is cervical spondylosis. IMPRESSION: Right filling separator space fluid collection with probable hematocrit/serum level indicating most likely acute intramuscular hematoma within the temporalis muscle. Reviewed, dictated and finalized at location A. IMPRESSION: Right filling separator space fluid collection with probable hematocrit/s tracee level indicating most likely acute intramuscular hematoma within the tempo ralis muscle.
--- NOTE | 2021-01-10 08:42 | ED.GENADULT ---
HPI - General Adult General Chief complaint: Dental/Oral <Alondra Masterson MD - Last Filed: 01/10/21 18:44> Stated complaint: Right dental pain, swelling <Alondra Masterson MD - Last Filed: 01/10/21 18:44> Time Seen by Provider: 01/10/21 06:52 <Alondar Masterson MD - Last Filed: 01/10/21 18:44> Source: patient <Alondra Masterson MD - Last Filed: 01/10/21 18:44> History of Present Illness HPI narrative: Patient is a 35 y/o male complaining of right facial and dental pain starting about 6 days ago. He describes his pain as aching and rates it as 9/10. He states that eating makes his pain worse. He had some dental work done 1 week ago. He has no fever or chills. <Alondra Masterson MD - Last Filed: 01/10/21 18:44> Related Data Home medications: Home Medications Medication Instructions Recorded Confirmed sertraline 50 mg tablet 50 mg PO DAILY 11/17/20 12/10/20 ascorbic acid (vitamin C) 100 mg 100 mg PO DAILY 12/10/20 12/10/20 chewable tablet hydralazine 25 mg tablet 50 mg PO BID tablet 12/10/20 12/10/20 melatonin 10 mg capsule 10 mg PO QHS 12/10/20 12/10/20 propranolol 40 mg tablet 40 mg PO BID tablet 12/10/20 12/10/20 <Alondra Masterson MD - Last Filed: 01/10/21 18:44> Allergies/adverse reactions: Allergies Allergy/AdvReac Type Severity Reaction Status Date / Time phytonadione (vitamin K1) Allergy Unknown Unknown Verified 01/10/21 08:48 <Alondra Masterson MD - Last Filed: 01/10/21 18:44> Review of Systems Constitutional: Constitutional: Denies chills, Denies fever(s), Denies headache(s) and Denies weakness <Alondra Masterson MD - Last Filed: 01/10/21 18:44> Eyes: Eyes: Denies blurry vision <Alondra Masterson MD - Last Filed: 01/10/21 18:44> ENT: Reports dental pain, Reports facial pain, Denies headache(s) and Denies neck pain <Alondra Masterson MD - Last Filed: 01/10/21 18:44> Cardiovascular: Cardiovascular: Denies chest pain and Denies dyspnea <Alondra Masterson MD - Last Filed: 01/10/21 18:44> Respiratory: Respiratory: Denies cough and Denies dyspnea <Alondra Masterson MD - Last Filed: 01/10/21 18:44> Gastrointestinal: Gastrointestinal: Denies abdominal pain, Denies diarrhea, Denies nausea and Denies vomiting <Alondra Masterson MD - Last Filed: 01/10/21 18:44> Genitourinary: Genitourinary: Denies hematuria and Denies dysuria <Alondra Masterson MD - Last Filed: 01/10/21 18:44> Musculoskeletal: Musculoskeletal: Denies back pain and Denies neck pain <Alondra Masterson MD - Last Filed: 01/10/21 18:44> Neurologic: Denies headache(s) and Denies weakness <Alondra Masterson MD - Last Filed: 01/10/21 18:44> [facility] Past Medical History Medical History: Medical History Amphetamine use disorder, mild As per EMS report. Bicuspid aortic valve Elevated liver enzymes Hypertension Obese Tobacco abuse <Alondra Masterson MD - Last Filed: 01/10/21 18:44> Surgical History Surgical History: Surgical History H/O aortic valve replacement <Alondra Masterson MD - Last Filed: 01/10/21 18:44> Family History Family History: Family History Father Hypertension Other Cerebrovascular accident <Alondra Masterson MD - Last Filed: 01/10/21 18:44> Social History Social History: Social History Social History: Patient lives with his parents. According to the nurse the patient decided to be a full code. Who reported to the nurse that he uses marijuana. And that he also smokes 2 cigarettes a day for the last 2 years. Years smoked: 2 Smoking status: Current every day smoker Tobacco type: cigarettes Alcohol intake: former Substance use: current Substance use type: marijuana Last use: daily Gender identity (if verbalized by the patient): Male Spiritual care concerns: No Agree to
[2021-01-10] MEDS: ONDANSETRON INJ 4 MG/2 ML VIAL (08:53)
[2021-01-10] MEDS: fentaNYL CITRATE INJ (*CRX) 100 MCG/2 ML VIAL 50 MCG IV PUSH ×3 (08:53→17:14)
[2021-01-10 09:10] LABS: Basophils Percent Auto 0.3 % (0.2-1.2); Eosinophils Absolute Auto 0.1 K/mm3 (0-0.3); Eosinophils Percent Auto 1.2 % (0-4.4); Hematocrit 46.5 % (42.0-52.0); Hemoglobin 16.7 g/dL (14.0-18.0); Immature Granulocyte Absolute 0.04 K/mm3 (0.00-0.031); Immature Granulocyte Percent A 0.4 % (0-0.5); Lymphocytes Absolute Auto 1.39 K/mm3 (0.9-3.2); Lymphocytes Percent Auto 12.9 % (18.3-44.2); Mean Corpuscular HGB Conc 35.9 g/dl (32-36); Mean Corpuscular Hemoglobin 30.4 pg (26-34); Mean Corpuscular Volume 84.7 fl (80-100); Mean Platelet Volume 10.3 fl (7.4-10.4); Monocytes Absolute Auto 0.9 K/mm3 (0.1-0.6); Monocytes Percent Auto 7.9 % (2.6-8.5); Neutrophils Absolute Auto 8.3 K/mm3 (1.3-6.7); Neutrophils Percent Auto 77.3 % (45.5-73.1); Platelet Count Result 221 k/mm3 (150-375); Red Blood Count 5.49 M/mm3 (4.6-6.20); Red Cell Distribution Width 13.3 % (11.5-14.5); White Blood Count 10.8 K/mm3 (4.5-10.0)
[2021-01-10 09:20] LABS: INR 2.9; Prothrombin Time 29.5 Seconds (11.1-14.7)
[2021-01-10 09:22] LABS: Partial Thromboplastin Time 92.3 SECONDS (22.3-36.8)
[2021-01-10] MEDS: lisinopriL 20 MG TABLET PO (09:34)
[2021-01-10] MEDS: CLINDAMYCIN 600 MG/D5W 50 ML 600 MG/50 ML PIGGYBACK 100 MG IVPB ×2 (10:06→17:20)
[2021-01-10 10:16] LABS: Anion Gap 9 mmol/L (8-16); Blood Urea Nitrogen 13 mg/dL (9-20); Calcium 9.6 mg/dL (8.4-10.2); Carbon Dioxide 26 mmol/L (22-30); Chloride 104 mmol/L (98-107); Estimated CRCL calculation 142 ml/min; Estimated Glomerular Filt Rate > 60; Glucose 123 mg/dL (65-110); Potassium 3.9 mmol/L (3.4-5.0); Sodium 139 mmol/L (137-145)
--- NOTE | 2021-01-10 13:43 | PC.NURSE ---
Report called to MICAELA Barbour at [facility] [phone]
[2021-01-10] MEDS: oxyCODONE/ACETAMINOPHEN (*CRX) 5-325 MG TABLET 1 TABLET PO ×2 (14:34→18:58)
[2021-01-10] MEDS: LABETALOL HCL INJ 100 MG/20 ML VIAL 20 MG IV PUSH (14:59)
[2021-01-10] MEDS: amLODIPine BESYLATE 5 MG TABLET 10 MG (15:48)
[2021-01-10] MEDS: DEXAMETHASONE SOD PHOS INJ 4 MG/ML VIAL 10 MG IV PUSH (17:16)
[2021-01-10] MEDS: hydrALAZINE HCL 20 MG/ML VIAL IV PUSH (17:20)
--- NOTE | 2021-01-10 18:29 | WPDCN ---
Assessment and Plan Assessment and plan (1) Hematoma of face: Qualifiers: Encounter type: initial encounter Qualified Code(s): S00.83XA - Contusion of other part of head, initial encounter Code(s): S00.83XA - Contusion of other part of head, initial encounter Status: Acute Assessment and Plan: Recommend discussing holding Coumadin/possibly reversing with cardiology, IR may offer both diagnostic and therapeutic options, and a transfer is warranted. Please call with any questions/concerns. HPI Data of Consult Date/Time: 01/10/21 18:29 Primary Care Provider: Kimberley Gandara, PA Consult Narrative Narrative: Guero Hoover III is a 35 year old male with a history of dental work several days ago/one week ago. Reports significant bleeding following extraction (patient has a mechanical valve, INR today 2.9). Bleeding lasted several days, since then the bleeding has subsided, unfortunately his pain began around the same time. The patient reports severe right sided facial pain, ear pain, and trismus. CT demonstrates a lesion in the right ppf/infratemporal fossa region. Radiographically the lesion is consistent with a hematoma (see report, based on hounsfield units I believe). Unfortunately the patient now has fluctuance/edema of the superficial temporal space. The patient also new changes with worsening trismus and cn 5 numbness in the v2 and v3 region. [facility] Past Medical History Medical History Amphetamine use disorder, mild As per EMS report. Bicuspid aortic valve Elevated liver enzymes Hypertension Obese Tobacco abuse Surgical History Surgical History H/O aortic valve replacement Family History Family History Father Hypertension Other Cerebrovascular accident Social History Social History Social History: Patient lives with his parents. According to the nurse the patient decided to be a full code. Who reported to the nurse that he uses marijuana. And that he also smokes 2 cigarettes a day for the last 2 years. Years smoked: 2 Smoking status: Current every day smoker Tobacco type: cigarettes Alcohol intake: former Substance use: current Substance use type: marijuana Last use: daily Gender identity (if verbalized by the patient): Male Spiritual care concerns: No Agree to blood products: Yes Meds Home Medications and Allergies Home Medications Medication Instructions Recorded Confirmed Type warfarin 5 mg PO DAILY #30 tablet 05/21/19 12/10/20 Rx sertraline 50 mg tablet 50 mg PO DAILY 11/17/20 12/10/20 History ascorbic acid (vitamin C) 100 mg 100 mg PO DAILY 12/10/20 12/10/20 History chewable tablet hydralazine 25 mg tablet 50 mg PO BID tablet 12/10/20 12/10/20 History melatonin 10 mg capsule 10 mg PO QHS 12/10/20 12/10/20 History propranolol 40 mg tablet 40 mg PO BID tablet 12/10/20 12/10/20 History Allergies Allergy/AdvReac Type Severity Reaction Status Date / Time phytonadione (vitamin K1) Allergy Unknown Unknown Verified 01/10/21 08:48 Vital Signs Vital Signs - 24 hr 01/10/21 07:01 01/10/21 07:15 01/10/21 07:30 Temperature 36.3 C L Pulse Rate 62 Respiratory Rate 18 Blood Pressure 191/99 H 208/98 H 216/104 H Pulse Oximetry 98 96 95 01/10/21 10:10 01/10/21 11:18 01/10/21 11:19 Temperature Pulse Rate 60 64 Respiratory Rate 16 18 Blood Pressure 190/79 H 188/86 H Pulse Oximetry 97 97 97 01/10/21 11:20 01/10/21 11:21 01/10/21 11:41 Temperature Pulse Rate Respiratory Rate Blood Pressure 188/86 H Pulse Oximetry 98 97 97 01/10/21 11:45 01/10/21 11:46 01/10/21 12:03 Temperature Pulse Rate Respiratory Rate Blood Pressure 189/103 H Pulse Oximetry 96 97 96 01/10/21 12:15
== END 2021-01-10 22:40 | disposition short-term general hospital (02) ==
PROVIDERS: Emergency Provider Emergency Medicine; PCP Physician Assistant
DX: M79.81 Nontraumatic hematoma of soft tissue (principal); T45.515A Adverse effect of anticoagulants, initial encounter; I10 Essential (primary) hypertension; E66.9 Obesity, unspecified; Z68.34 Body mass index [BMI] 34.0-34.9, adult; Z95.2 Presence of prosthetic heart valve; F17.210 Nicotine dependence, cigarettes, uncomplicated
CPT/HCPCS: 36415; 70491; 80048; 85025; 85610; 85730; 96361; 96365; 96367; 96375; 96376; 99285; A9270; J0360; J1100; J2405; J3010; Q9967

== ENCOUNTER 2021-04-18 00:51 | Day surgery (SDC) | payer BC, SELFPAY ==
[2021-04-11 14:56] VITALS: BMI 34.5
[2021-04-18 08:35] VITALS: BP 135/96; PULSE 60; RESP 23; O2SAT 96
[2021-04-18] MEDS: LACTATED RINGERS 1,000 ML 150 ML IV CONT (08:45)
--- NOTE | 2021-04-18 08:46 | WPDANESEPPF ---
Anes - Initial Pre Proc Eval Procedure: Operation Date: 04/18/21 09:30 Proposed Procedures p Esophagogastroduodenoscopy - Jhon Bach MD Date/Time: 04/18/21 08:46 Surgeon: Jhon Bach MD Pre Op Diagnosis: abdominal pain , nausea/vomiting Patient Data Age: 35 Gender: M Height: 1.7 m Weight: 100 kg Allergies Allergy/AdvReac Type Severity Reaction Status Date / Time phytonadione (vitamin K1) Allergy Unknown Unknown Verified 04/11/21 14:54 Home Medications Medication Instructions Recorded Confirmed Type warfarin 5 mg PO DAILY #30 tablet 05/21/19 04/11/21 Rx sertraline 50 mg tablet 50 mg PO DAILY 11/17/20 04/11/21 History ascorbic acid (vitamin C) 100 mg 100 mg PO DAILY 12/10/20 04/11/21 History chewable tablet hydralazine 25 mg tablet 25 mg PO TID tablet 12/10/20 04/11/21 History propranolol 40 mg tablet 40 mg PO BID tablet 12/10/20 04/11/21 History pantoprazole 20 mg tablet,delayed 20 mg PO QAM 30 Days #30 tablet 03/01/21 04/11/21 Rx release Laboratory Tests 04/18/21 08:38 PT Pending INR Pending Patient hx anesthesia problems: none Family hx anesthesia problems: none Results Review: All pre-operative results and documents have been reviewed as part of the pre-operative evaluation. [facility] Past Medical History Medical History Amphetamine use disorder, mild As per EMS report. Bicuspid aortic valve Elevated liver enzymes Hypertension Obese Tobacco abuse Surgical History Surgical History H/O aortic valve replacement Family History Family History Father Hypertension Other Cerebrovascular accident Social History Social History Social History: Patient lives with his parents. According to the nurse the patient decided to be a full code. Who reported to the nurse that he uses marijuana. And that he also smokes 2 cigarettes a day for the last 2 years. Smoking packs per day: 0.5 Smoking cigarettes per day: 10.0 Years smoked: 11 Smoking pack-years: 5.50 Smoking status: Current every day smoker Tobacco type: cigarettes Alcohol intake: current Alcohol use details: wine occasionally Substance use: current Substance use type: marijuana Other substance usage details: 2x monthly Last use: daily Living arrangements: with family Gender identity (if verbalized by the patient): Male Spiritual care concerns: No Agree to blood products: Yes Anes - Eval Final PreProcedure Day of Procedure 04/18/21 08:46 Patient weight: obese Heart: regular rate and rhythm Lungs: clear to auscultation Airway: Mallampati scale class II Neurological: alert and oriented Last oral intake: >/= 8 hours ASA classification: III Emergent: no Anesthetic plan: proceed Anesthesia type and monitoring: general GIVS and standard monitoring Results Review: All pre-operative results and documents have been reviewed as part of the pre-operative evaluation. Informed Consent: The patient's anesthetic plan and its attendant risks and benefits were discussed with the patient/family/POA. Questions were solicited and answers provided to the satisfaction of the patient/family/POA.
[2021-04-18] MEDS: GENTAMICIN 80MG/SOD CHL 50 ML 80 MG/50 ML BAG 100 MG IVPB (08:49)
[2021-04-18 08:50] VITALS: BP 150/93; PULSE 65; RESP 18; TEMP 36.6; O2SAT 99; BMI 34.9
[2021-04-18 08:54] LABS: INR 0.9; Prothrombin Time 11.8 Seconds (11.1-14.7)
--- NOTE | 2021-04-18 08:56 | WPDGICN ---
Assessment and Plan Assessment and plan (1) Nausea & vomiting: Code(s): R11.2 - Nausea with vomiting, unspecified Status: Acute Assessment and Plan: Persistent nausea vomiting of phlegm in the morning. This been long-term finding. Plan is to assess more thoroughly with an EGD. (2) Epigastric abdominal pain: Code(s): R10.13 - Epigastric pain Status: Acute Assessment and Plan: patient with epigastric pain after eating in the morning. This is gone on for long time. Plan is for EGD. May need higher dose of PPI or antacids further recommendations will be given after endoscopy. (3) Obese: Code(s): E66.9 - Obesity, unspecified Status: Acute (4) Bicuspid aortic valve: Code(s): Q23.1 - Congenital insufficiency of aortic valve Status: Chronic Assessment and Plan: Patient with a history of valvular heart disease. Anticoagulation will be held for endoscopy. Prophylactic antibiotics advised. (5) Elevated liver enzymes: Code(s): R74.8 - Abnormal levels of other serum enzymes Status: Acute Assessment and Plan: Elevated liver enzymes could be used intermittent alcohol use versus obesity. Patient is advised to lose weight abstain from alcohol. GI Consult Note Consult date/time: 04/18/21 08:56 HPI: Guero Hoover III is a 35 year old male Presents for EGD. Patient reports for several years has nausea vomiting in the morning. Typically will bring up phlegm. States he will eat food later in the day and sometimes feel epigastric discomfort. He takes Tums on a regular basis but this fails to totally alleviate these symptoms. Denies any dysphagia or weight loss. For these reasons he is referred for endoscopy. Recently suggest take pantoprazole daily. With uncertain response to these medications. Past medical history is significant for valvular heart disease without heart valve replacement as child. He is on chronic Coumadin therapy. He removed reports occasional use of alcohol perhaps on a monthly basis. Review of Systems Review of Systems: All systems reviewed & are unremarkable except as noted in HPI and below PMFSH Past Medical History Medical History Amphetamine use disorder, mild As per EMS report. Bicuspid aortic valve Elevated liver enzymes Hypertension Obese Tobacco abuse Surgical History Surgical History H/O aortic valve replacement Family History Family History Father Hypertension Other Cerebrovascular accident Social History Social History Social History: Patient lives with his parents. According to the nurse the patient decided to be a full code. Who reported to the nurse that he uses marijuana. And that he also smokes 2 cigarettes a day for the last 2 years. Smoking packs per day: 0.5 Smoking cigarettes per day: 10.0 Years smoked: 11 Smoking pack-years: 5.50 Smoking status: Current every day smoker Tobacco type: cigarettes Alcohol intake: current Alcohol use details: wine occasionally Substance use: current Substance use type: marijuana Other substance usage details: 2x monthly Last use: daily Living arrangements: with family Gender identity (if verbalized by the patient): Male Spiritual care concerns: No Agree to blood products: Yes Meds Home Medications and Allergies Home Medications Medication Instructions Recorded Confirmed Type warfarin 5 mg PO DAILY #30 tablet 05/21/19 04/11/21 Rx sertraline 50 mg tablet 50 mg PO DAILY 11/17/20 04/11/21 History ascorbic acid (vitamin C) 100 mg 100 mg PO DAILY 12/10/20 04/11/21 History chewable tablet hydralazine 25 mg tablet 25 mg PO TID tablet 12/10/20 04/11/21 History propranolol 40 mg tablet
[2021-04-18] MEDS: AMPICILLIN 2 GM/NS 100 ML 2 GM/100 ML BAG IVPB (09:17)
[2021-04-18 09:45] VITALS: BP 135/80; PULSE 61; RESP 20; O2SAT 99
[2021-04-18 09:55] VITALS: BP 140/84; PULSE 59; RESP 17; O2SAT 100
== END 2021-04-18 10:07 | disposition home or self-care (01) ==
PROVIDERS: PCP Physician Assistant; Visit Provider Internal Medicine Gastroenterology
PROC: 0DJ08ZZ Inspection of Upper Intestinal Tract, Via Natural or Artificial Opening Endoscopic (ICD-10-PCS; CPT 43235; principal; 2021-04-18 09:30)
DX: R11.2 Nausea with vomiting, unspecified (principal); R10.13 Epigastric pain; Q23.1 Congenital insufficiency of aortic valve; R74.8 Abnormal levels of other serum enzymes; R74.01 Elevation of levels of liver transaminase levels; Z95.2 Presence of prosthetic heart valve; F17.210 Nicotine dependence, cigarettes, uncomplicated; F12.90 Cannabis use, unspecified, uncomplicated; Z79.01 Long term (current) use of anticoagulants; E66.9 Obesity, unspecified; Z68.35 Body mass index [BMI] 35.0-35.9, adult
CPT/HCPCS: 43239; 36415; 85610; 87081; J0290; J1580; J2704; J7120

== ENCOUNTER 2022-02-06 12:10 | Emergency (ER) | payer BC, SELFPAY ==
--- NOTE | ~2022-02-06 | XR_ITS ---
EXAMINATION: XR chest 2V 02/06/2022 12:49 INDICATION: Wheezing and cough PROCEDURE: 2 view chest COMPARISON: 05/20/2019 FINDINGS: The lungs are clear. The cardiomediastinal silhouette is within normal limits. There are no pleural effusions. There is no pneumothorax suspected. Status post median sternotomy for CABG. IMPRESSION: 1: NO ACUTE CARDIOPULMONARY DISEASE. Reviewed, dictated and finalized at location B.
[2022-02-06 12:21] VITALS: BP 155/107; PULSE 73; RESP 20; TEMP 36.5; O2SAT 95
--- NOTE | 2022-02-06 12:51 | ED.URI ---
HPI - URI/Sore Throat General Chief Complaint: Upper Respiratory Infection Stated Complaint: Coughing,Chest Pain Time Seen by Provider: 02/06/22 12:53 Source: patient and RN notes reviewed Mode of arrival: ambulatory Limitations: no limitations History of Present Illness HPI Narrative: 36-year-old male presents with concern for a 3 week history of sinus congestion, cough, shortness of breath, wheezing. Reports his parents had COVID, he began having symptoms shortly after that, he tested negative once for COVID. He reports taking DayQuil and NyQuil with little relief. MD elicited complaint: cough Related Data Home Medications Medication Instructions Recorded Confirmed ascorbic acid (vitamin C) 100 mg 100 mg PO DAILY 12/10/20 02/06/22 chewable tablet hydralazine 25 mg tablet 25 mg PO TID 12/10/20 02/06/22 propranolol 40 mg tablet 40 mg PO BID 12/10/20 02/06/22 atorvastatin 20 mg tablet 20 mg PO DAILY 02/06/22 02/06/22 olanzapine 15 mg tablet 15 mg PO DAILY 02/06/22 02/06/22 sertraline 100 mg tablet mg 02/06/22 Allergies Allergy/AdvReac Type Severity Reaction Status Date / Time phytonadione (vitamin K1) Allergy Unknown Unknown Verified 02/06/22 12:23 Review of Systems Review of Systems: CONSTITUTIONAL: Reports malaise. EYES: Denies visual changes, redness, or discharge. ENT: Reports rhinorrhea, congestion, sinus pain CARDIOVASCULAR: Denies chest pain, palpitations, or edema. RESPIRATORY: Reports cough, wheezing, dyspnea. GASTROINTESTINAL: Denies abdominal pain, nausea, vomiting, diarrhea SKIN: Denies rash or itching. MUSCULOSKELETAL: Denies myalgia. NEUROLOGIC: Denies headache. All systems reviewed & are unremarkable except as noted in HPI and below PMFSH Past Medical History Medical History Amphetamine use disorder, mild As per EMS report. Bicuspid aortic valve Elevated liver enzymes Hypertension Obese Tobacco abuse Surgical History Surgical History H/O aortic valve replacement Family History Family History Father Hypertension Other Cerebrovascular accident Social History Social History Social History: Patient lives with his parents. According to the nurse the patient decided to be a full code. Who reported to the nurse that he uses marijuana. And that he also smokes 2 cigarettes a day for the last 2 years. Smoking packs per day: 0.5 Smoking cigarettes per day: 10.0 Years smoked: 11 Smoking pack-years: 5.50 Smoking status: Current every day smoker Tobacco type: cigarettes Alcohol intake: current Alcohol use details: wine occasionally Substance use: current Substance use type: marijuana Other substance usage details: 2x monthly Last use: daily Gender identity (if verbalized by the patient): Male Spiritual care concerns: No Agree to blood products: Yes Comments At time of signature, agree with nursing past medical, surgical, social and family history. There is no relevant family history pertinent to the presenting complaint Exam Narrative: GENERAL: Well-appearing, well-nourished, and in no acute distress. HEAD: Normocephalic EYES: PERRLA, conjunctivae clear ENT: Nares clear. Mucous membranes moist. TM pearly saravia with dull light reflex bilaterally; no tragal tenderness. Oropharynx not erythematous without lesions. Tonsils not enlarged and without exudate, no drooling, no hoarseness, no trismus, uvula midline. NECK: Supple. No lymphadenopathy CHEST: Expiratory wheeze throughout, aeration fair, diminished bases. No rhonchi, rales, or stridor. Conversational dyspnea HEART: Regular rate and rhythm. No murmur heard. SKIN: Warm, dry, no rash. NEURO: Alert and oriented x3. PSYCH: Normal mood and affect Course Course Emergency Course: Sy
[2022-02-06 13:00] VITALS: PULSE 73; RESP 20; O2SAT 95
[2022-02-06] MEDS: predniSONE 20 MG TABLET 40 MG PO (13:05)
[2022-02-06] MEDS: ALBUTEROL SULFATE NEB 2.5 MG/3 ML INH INHALATION (13:07)
[2022-02-06] MEDS: IPRATROPIUM BR 0.02% INH SOLN 0.5 MG/2.5 ML VIAL INHALATION (13:08)
[2022-02-06 13:21] VITALS: PULSE 76; RESP 21; O2SAT 96
== END 2022-02-06 13:53 | disposition home or self-care (01) ==
PROVIDERS: Emergency Provider Nurse Practitioner; PCP Physician Assistant
DX: J06.9 Acute upper respiratory infection, unspecified (principal); F17.210 Nicotine dependence, cigarettes, uncomplicated; F12.90 Cannabis use, unspecified, uncomplicated; I10 Essential (primary) hypertension; E66.9 Obesity, unspecified; Z68.34 Body mass index [BMI] 34.0-34.9, adult; Z95.2 Presence of prosthetic heart valve
CPT/HCPCS: 71046; 99213; G0463; J7512

== ENCOUNTER 2022-06-29 14:19 | Emergency (ER) | payer BC, SELFPAY ==
[2022-06-29 14:27] VITALS: BP 151/97; PULSE 78; RESP 16; TEMP 37.1; O2SAT 99
--- NOTE | 2022-06-29 15:09 | ED.DENTAL ---
HPI - Dental/Oral General Chief complaint: Dental/Oral Stated complaint: Dental Pain Time Seen by Provider: 06/29/22 15:09 Source: patient Mode of arrival: ambulatory History of Present Illness HPI Narrative: 36-year-old male presented for complaints of right upper front dental pain for 3 days. He states this tooth had been broken, but 3 days ago he broke another piece. Endorses cold or warm liquids cause pain. Taking ibuprofen and Tylenol without relief. He denies gum swelling or drainage, nausea, vomiting, fevers or chills. History of methamphetamine use, mechanical aortic valve, and is concerned for infection. Patient is scheduled with dentist on 07/05. MD Complaint: tooth pain Related Data Home Medications Medication Instructions Recorded Confirmed ascorbic acid (vitamin C) 100 mg 100 mg PO DAILY 12/10/20 02/06/22 chewable tablet hydralazine 25 mg tablet 25 mg PO TID 12/10/20 02/06/22 propranolol 40 mg tablet 40 mg PO BID 12/10/20 02/06/22 olanzapine 15 mg tablet 15 mg PO DAILY 02/06/22 02/06/22 sertraline 100 mg tablet mg 02/06/22 amlodipine 5 mg tablet mg 06/29/22 famotidine 20 mg tablet mg 06/29/22 Allergies Allergy/AdvReac Type Severity Reaction Status Date / Time phytonadione (vitamin K1) Allergy Unknown Unknown Verified 06/29/22 14:23 Review of Systems Review of Systems: CONSTITUTIONAL: Denies body aches, fever, chills ENT: Denies rhinorrhea, congestion, sore throat, or otalgia. Reports dental pain CARDIOVASCULAR: Denies chest pain, palpitations RESPIRATORY: Denies cough or dyspnea. SKIN: Denies rash, itching, or wounds. MUSCULOSKELETAL: Denies myalgia. NEUROLOGIC: Denies headache, numbness, tingling, or weakness. [facility] Past Medical History Medical History Amphetamine use disorder, mild As per EMS report. Bicuspid aortic valve Elevated liver enzymes Hypertension Obese Tobacco abuse Surgical History Surgical History H/O aortic valve replacement Family History Family History Father Hypertension Other Cerebrovascular accident Social History Social History Social History: Patient lives with his parents. According to the nurse the patient decided to be a full code. Who reported to the nurse that he uses marijuana. And that he also smokes 2 cigarettes a day for the last 2 years. Smoking packs per day: 0.5 Smoking cigarettes per day: 10.0 Years smoked: 11 Smoking pack-years: 5.50 Smoking status: Current every day smoker Tobacco type: cigarettes Alcohol intake: current Alcohol use details: wine occasionally Substance use: current Substance use type: marijuana Other substance usage details: 2x monthly Last use: daily Living arrangements: with family Occupation/Education: other Gender identity (if verbalized by the patient): Male Spiritual care concerns: No Agree to blood products: Yes Comments At time of signature, I have reviewed and agree with nursing past medical, surgical, social and family history unless otherwise noted. Please see nursing chart for further information. There is no relevant family history pertinent to the presenting complaint Exam Narrative: GENERAL: Appears in pain; no acute distress. HEAD: Normocephalic, atraumatic. EYES: EOMI. No redness or drainage. Conjunctivae normal. ENT: Dental pain location of #8, broken tooth with caries; mild gum swelling and tenderness; multiple caries, broken and missing teeth; Mucous membranes pink and moist. TMs normal bilaterally. Throat normal. Uvula midline. NECK: Normal AROM. No lymphadenopathy. CHEST: Clear to auscultation. SKIN: Warm, dry, no rash. Normal skin turgor. NEURO: No focal deficits. Alert and oriented x3. Course Course Emergency Co
== END 2022-06-29 15:21 | disposition home or self-care (01) ==
PROVIDERS: Emergency Provider Nurse Practitioner Family; PCP Physician Assistant
DX: K08.89 Other specified disorders of teeth and supporting structures (principal); F17.210 Nicotine dependence, cigarettes, uncomplicated; F12.90 Cannabis use, unspecified, uncomplicated; I10 Essential (primary) hypertension; E66.9 Obesity, unspecified; Z68.34 Body mass index [BMI] 34.0-34.9, adult
CPT/HCPCS: 99213; G0463

== ENCOUNTER 2024-08-19 17:20 | Emergency (ER) | payer BC, SELFPAY ==
[2024-08-19 17:14] VITALS: BP 133/103; PULSE 94; RESP 15; TEMP 36.4; O2SAT 96
--- NOTE | 2024-08-19 17:24 | ED.PSYCH ---
HPI - Psych General Chief Complaint: Psychiatric Symptoms Stated Complaint: hallucinations History of Present Illness HPI Narrative: 38-year-old male history of hypertension, bicuspid aortic valve s/p aortic valve replacement on warfarin, dyslipidemia, methamphetamine use presents to the ED via EMS for concerns for hallucinations. Patient states that he has noticed some black cameras outside the front of his house for a while now today called PD to have them, ?scan? the property due to concerns for people being in his home. He states PD became concerned the patient was hallucinating and advised him to come to the ER for psychiatric evaluation. The patient does not believe he has been hallucinating. He denies auditory hallucinations. Denies SI or HI. He is prescribed sertraline by his PCP which he has been taking. States he used to take to 2 other antipsychotic medications but discontinued these 3 months ago because he did not like the way they made him feel. He was previously established with a psychiatrist outpatient but has not followed up in several months. States his PCP manages his sertraline and he does not desire to take any other psychiatric medications. He denies history of formal psychiatric diagnoses including bipolar disorder and schizophrenia. He denies drug and alcohol use. Patient has no other complaints and states he does not believe he needs to be here and does not want any further evaluation. Related Data Home Medications ?Medication ?Instructions ?Recorded ?Confirmed ?Last Taken ?Type ascorbic acid (vitamin C) 100 mg 100 mg PO DAILY 12/10/20 02/06/22 Unknown History chewable tablet hydralazine 25 mg tablet 25 mg PO TID 12/10/20 02/06/22 Unknown History propranolol 40 mg tablet 40 mg PO BID 12/10/20 02/06/22 Unknown History olanzapine 15 mg tablet 15 mg PO DAILY 02/06/22 02/06/22 Unknown History sertraline 100 mg tablet mg 02/06/22 Unknown History amlodipine 5 mg tablet mg 06/29/22 Unknown History famotidine 20 mg tablet mg 06/29/22 Unknown History Allergies Allergy/AdvReac Type Severity Reaction Status Date / Time phytonadione (vitamin K1) Allergy Unknown Unknown Verified 08/19/24 17:25 Review of Systems Review of Systems: All systems reviewed & are unremarkable except as noted in HPI and below PMFSH Past Medical History Medical History Tobacco abuse Obese Elevated liver enzymes Amphetamine use disorder, mild As per EMS report. Hypertension Bicuspid aortic valve Surgical History Surgical History H/O aortic valve replacement Family History Family History Father Hypertension Other Cerebrovascular accident Social History Social History Social History: Patient lives with his parents. According to the nurse the patient decided to be a full code. Who reported to the nurse that he uses marijuana. And that he also smokes 2 cigarettes a day for the last 2 years. Smoking packs per day: 0.5 Smoking cigarettes per day: 10.0 Years smoked: 11 Smoking pack-years: 5.50 Smoking status: Current every day smoker Tobacco type: cigarettes Alcohol intake: current Alcohol use details: wine occasionally Substance use: current Substance use type: marijuana Other substance usage details: 2x monthly Last use: daily Living arrangements: with family Occupation/Education: other Gender identity (if verbalized by the patient): Male Spiritual care concerns: No Agree to blood products: Yes Exam Narrative: GENERAL: Well-appearing, well-nourished, and in no acute distress. HEAD: Normocephalic, atraumatic. EYES: EOMI. ENT: Nares clear, no rhinorrhea or epistaxis. Mucous membranes moist. NECK: Supple. CHEST: Clear to auscultation. No respiratory distress. HEART: Regular rate and rhythm. No murmur heard. Normal peripheral pulses. EXTREMITIES: Normal range of motion. No edema. SKIN: Warm, dry, no rash. NEURO: No focal deficits. Alert and oriented x4. No lateralizing deficits and moving all extremities spontaneously PSYCH: Denies SI and HI. Pleasant and cooperative. Answering questions appropriately. Not actively responding to internal stimuli on exam. Well kempt Course Vital Signs Vital signs: Vital Signs Temperature 97.6 F 08/19/24 17:14 Pulse Rate 94 08/19/24 17:14 Respiratory Rate 15 08/19/24 17:14 Blood Pressure 133/103 H 08/19/24 17:14 Pulse Oximetry 96 08/19/24 17:14 Oxygen Delivery Room Air 08/19/24 17:14 Temperature 97.6 F 08/19/24 17:14 Pulse Rate 94 08/19/24 17:14 Respiratory Rate 15 08/19/24 17:14 Blood Pressure 133/103 H 08/19/24 17:14 Pulse Oximetry 96 08/19/24 17:14 Oxygen Delivery Room Air 08/19/24 17:14 MDM - Psych MDM Narrative Medical decision making narrative: 38-year-old male presents to the Emergency Department by requests of family and EMS after patient called PD to his house today after he developed concerns of people working in his home and had seen video cameras outside of his house. Per patient PD assessed the scene but were concerned the patient was hallucinating and advised him to come to the ED. On arrival to the ED the patient does have elevated blood pressure but is otherwise well appearing. He is well kempt, A&O x4 answering all questions appropriately. He adamantly denies SI and HI. He has no other complaints. He does not appear to be intoxicated or under the influence of substances. He expresses multiple times that he does not desire to be here does not desire any further psychiatric workup. I do not feel the need to keep the patient in the ED against his will as he appears to have full decision-making capacity and is not a threat to himself or others. Advised to continue his sertraline to follow-up with his PCP. He was given information for outpatient psychiatry. Discussed strict ED return precautions. He is agreeable with the plan verbalized understanding. Discharged in stable condition. Discharge Plan Discharge Clinical Impression: Hallucinations Patient Disposition: Home Condition: Stable Instructions: Antibiotic Form, Hallucinations (ED) Additional Instructions: You were evaluated in the emergency department for possible hallucinations. We discussed obtaining lab work and having Psychiatry evaluate you, however you politely declined. Please continue taking your sertraline and follow-up with your primary care provider. Return to the emergency department if you develop any thoughts of harming herself or other people, you start hearing voices that tell you to harm others or yourself, or other concerning symptoms Patient Language: Ukrainian Prescriptions: No Action sertraline 100 mg tablet olanzapine 15 mg tablet 15 mg PO DAILY amlodipine 5 mg tablet famotidine 20 mg tablet lidocaine HCl [Lidocaine Viscous] 2 % solution 1 applic mucous membrane TID PRN (Reason: pain) Qty: 100 0RF Rx Instructions: apply with cotton swab to site of pain amoxicillin-pot clavulanate 875-125 mg tablet 1 tablet PO Q12H 7 Days Qty: 14 0RF propranolol 40 mg tablet 40 mg PO BID ascorbic acid (vitamin C) 100 mg tablet,chewable 100 mg PO DAILY hydralazine 25 mg tablet 25 mg PO TID warfarin 5 mg Tablet 5 mg PO DAILY Qty: 30 0RF atorvastatin 20 mg tablet See Rx Instructions .ROUTE .COMPLEX Qty: 30 5RF Dose Instruction: Take 1 tablet by mouth once daily Rx Instructions: Take 1 tablet by mouth once daily Follow-up/Referrals: Juliocesar,DARYL Parrish [Primary Care Provider] -
--- OUTSIDE RECORDS SUMMARY | 2024-08-19 17:46 | XMS_ITS | Clinical Summary ---
Author Organization [facility] Address [address] [place] [address] Care Team Providers Care Mergers And Acquisitions Attorney Name Role Phone Yonathan Stein MD Unavailable [phone] Kimberley Gandara PA-C Primary Care Provider [phone] Allergies Active Allergy Reactions Criticality Noted Date Comments Vitamin K Unknown 02/08/2023 Patient was told to avoid vitamin K containing foods as he is on warfarin Medications famotidine (PEPCID) 20 MG tablet Take 1 tablet (20 mg total) by mouth 2 (two) times daily. 02/05/2023 Active OLANZapine (ZYPREXA) 15 MG tablet Take 1 tablet (15 mg total) by mouth nightly at bedtime. 01/31/2023 Active sertraline (ZOLOFT) 100 MG tablet Take 2 tablets (200 mg total) by mouth daily. 02/01/2023 Active clopidogrel (PLAVIX) 75 MG tablet Take 1 tablet (75 mg total) by mouth daily. 90 tablet 03/13/2023 Active nitroglycerin (NITROSTAT) 0.[address] 1 tablet (0.4 mg total) under the tongue every 5 (five) minutes as needed for Chest Pain. MAY REPEAT UP TO THREE TIMES, IF A THIRD DOSE IS NEEDED CALL 911 25 tablet 3 03/13/2023 Active losartan (COZAAR) 25 MG tablet Take 1 tablet by mouth twice daily 180 tablet 07/12/2023 Active carvedilol (COREG) 3.125 MG tablet Take 1 tablet by mouth twice daily 180 tablet 07/12/2023 Active isosorbide mononitrate ER (IMDUR) 30 MG 24 hr tablet Take 1 tablet by mouth once daily 90 tablet 07/12/2023 Active warfarin (COUMADIN) 5 MG tablet take 1 and 1/2 tablets by mouth daily 45 tablet 07/30/2023 Active atorvastatin (LIPITOR) 80 MG tablet Take 1 tablet by mouth once daily 90 tablet 09/07/2023 Active Active Problems Problem Noted Date Diagnosed Date CHF exacerbation ([facility]) 05/06/2023 NSTEMI (non-ST elevated myoc ardial infarction) ([facility]) 02/08/2023 Essential hypertension 05/14/2018 Tobacco use 05/14/2018 Chronic diastolic congestive heart failure ([facility]) 02/22/2018 Chronic anticoagulation 02/22/2018 Anemia 02/04/2018 Assessment & Plan (02/14/2018 10:59 AM CDT): - Hemoglobin noted to be 15.4 at admission. Hb 12.4 (02/14). Up from 02/09 - 9.4 - Downtrending since admission. Can be secondary to daily blood draws but in the setting of recurrent fevers concern for other pathologies - Blood smear: MODERATE NORMOCYTIC ANEMIA. NORMOCYTIC NORMOCHROMIC ANEMIA. THIS MAY BE CAUSED BY MULTIPLE ETIOLOGIES WHICH INCLUDE HEMOLYTIC ANEMIA, ACUTE BLOOD LOSS OR CHRONIC DISEASES - LDH (WNL), Retic (elevated) - Hematology consulted and following. - F/u labs. Elevated ferritin and haptoglobin. - Plt now uptrending. 589 today. History of mechanical aortic valve replacement 1 Assessment & Plan (01/29/2018 6:58 AM CDT): Chronic; stable. History of mechanical valve replacement in 1998 2/2 bicuspid valve. Currently on coumadin; INR 3.7 and is in therapeutic range - will continue home coumadin - consider assessment with ECHO Resolved Problems Problem Noted Date Diagnosed Date Resolved Date Elevated BP without diagnosis of hypertension 02/23/20 18 05/14/2018 Former smoker 02/22/2018 05/14/2018 Debility 02/09/2018 05/14/2018 Assessment & Plan (02/10/2018 11:05 AM CDT): 2/2 illness and extended stay in hospital - Incentive spirometer - PT/OT Lymphadenopathy 02/05/2018 02/22/2018 Assessment & Plan (02/14/2018 10:59 AM CDT): - CT done at admission remarkable for subcarinal lymphadenopathy with a larry aggregate measuring approximately 6 x 4 cm - Due to concern for Lymphadenopathy. Pulm consulted and following - Bronchoscopy with biopsy of subcarinal lymph node anticipated done 02/11 - EGD negative - Chest CT with w contrast done 02/11 remarkable for Interval resolution small bilateral pleural effusions. Interval appearance of probably centrilobular type airspace opacities within the left upper and lower lobes. Appearance can be seen with pneumonia or pulmonary hemorrhage. Stable mediastinal and hilar adenopathy. - Bronchoscopy with bx done 02/11. Negative for malignancy Positive blood culture 02/01/201802/22 Assessment & Plan (02/14/2018 10:58 AM CDT): - BC remarkable for G+ cocci resembling streptococcus (1 of 2 bottles - likely contaminant). BC 1 of 2 also remarkable for S. Viridans and S. Anguinous - ID consulted and following. As per recs: Stop Zosyn, Tamiflu and Doxycyline. Ampicillin 2g Q6 7 days of therapy completed. Stopped 02/13 - Monitor for growth in BC. None to date Acute kidney injury 01/30/2018 02/23/20 18 Assessment & Plan (01/30/2018 9:18 AM CDT): 1.31 up from 1.08 on admission and 1.03 yesterday. Fluid resuscitation URI (upper respiratory infection) 01/29/2018 05/14/2018 Assessment & Plan (01/30/2018 7:30 AM CDT): Chronic, stable. Pt reports fever, chills, sore throat and cough x10 days. Associated pleuritic chest pain and vomiting. Currently everyday tobacco smoker. Half PPD; 5 pack year history. Physical exam reveals bilateral bulging TMs with oropharyngeal erythema and cough/congrestion. - Tylenol for mild pain and fever; [place] 5 for moderate pain; gerardo for severe pain - guafenesin and dextromethorphan for cough PRN - Zofran for nausea PRN - advance diet as tolerated - on 1.5x mIVF Sepsis ([facility]) 01/28/201812/2017 Assessment & Plan (02/14/2018 10:57 AM CDT): Sepsis (possible)- secondary to unknown source, DDX: endocarditis vs bacteremia vs SBP vs meningitis vs pericarditis vs lymphoma. Findings include tachypnea, tachycardia and recurrent fever. Now concern for Lymphoma due to subcarinal lymphadenopathy - Blood Cultures x 2 for fever (maximum every 24 hour), consider LP for further evaluation of recurrent fevers - Urine studies: legionella negative , stool studies: negative , CT significant for mediastinal lymphadenopathy, no evidence of PE, small bilateral pleural effusions, mild ascites, splenomegaly, and probable colitis - Elevated trop at admission. Likely secondary to demand ischemia - 2L IVF bolus given in the ED, BP has remained stable - BC done 01/31 remarkable Strep. Anginous and Strep. Viridans. - As per ID recs - Ampicillin 2g Q4 hours and Vancomycin stopped. Doxycycline, Zosyn and Tamiflu stopped 02/06. Now on Ampicillin 2gQ6 Day#6 - Rickettsia negative. Sputum cultures: negative thus far - Histoplasmosis: negative - ANNIE negative for endocarditis - CXR ordered 02/03 due to new onset wheezing:DuoNeb given. Pt unable to tell if it improved his sx. CXR remarkable for:Subjective finding of bronchitis and viral illness. No dense consolidative pneumonia. - Peripheral smear: ABSOLUTE LYMPHOPENIA. MAY BE SEEN IN ACUTE INFECTION,TB, IMMUNODEFIENCY STATES AND TERMINALLY ILL PATIENTS. ODERATE NORMOCYTIC ANEMIA. NORMOCYTIC NORMOCHROMIC ANEMIA. THIS MAY BE CAUSED BY MULTIPLE ETIOLOGIES WHICH INCLUDE HEMOLYTIC ANEMIA, ACUTE BLOOD LOSS OR CHRONIC DISEASES. - LAZARO with reflex to titer: negatie - Concern for fluid overload. UA noted to have 30 proteins. Same as admission. : Lasix 20mg PO daily - Daily weights - EGD: Negative but slight extrinsic compression of the midesophagus - Bronchoscopy with biopsy done 02/11. NEGATIVE FOR MALIGNANCY - Procal 1.93 02/11. Trended down from 155 on 02/02 Assessment & Plan (01/30/2018 7:28 AM CDT): Acute; 10 day course of fever, chills, pleuritic positional chest pain, and diarrhea Pt reports black stools for past 3 days; FOBT negative; ED physician reports brown stool on rectal exam Labs remarkable for leukocytosis 18.6 on presentation but today have improved to 10.0. Being treated with Vanc/Cefipime for possible sepsis. 1L LR given in ED (with 500cc with vanco) Pt has been intermittently febrile and tachycardic with normal blood pressures. U/A negative, CXR negative for consolidation or effusions, Influenza A/B negative ID and cardiology saw patient and suspect viral infection and possible pericarditis. Overnight had some difficulty breathing and received CXR, repeat blood cultures and duoneb treatment. He also received 1L fluid bolus due to tachycardia. CXR revealed no acute process. Pt reports ____ - f/u blood cxs - f/u rapid strep A test - trend CBC, BMP - monitor response to fluid bolus and continue on 1.5x mIVF infusion Immunizations Immunization Administration Dates Next Due Fluarix (IIV4) 02/12/2018(Deferred: Other - told by MD not to give),02/01/2018(Deferred: Other - patient has been febrile),01/31/2018(Deferred: Patient/family declined) Tdap (Generic) 08/14/2022 Family History Medical History Relation Comments COPD Mother Heart Attack Paternal Grandfather Relation Status Comments Father Alive Maternal Grandfather Maternal Grandmother Mother Alive Paternal Grandfather Paternal Grandmother Sister Alive Social History Tobacco Use Types Packs/Day Years Used Date Smoking Tobacco: Every Day Cigarettes Smokeless Tobacco: Never Tobacco Cessation:Ready to Q uit: Not Asked; Counseling Given: Not Answered Alcohol Use Standard Drinks/Week Comments Yes 0 (1 standard drink = 0.6 oz pur e alcohol) occassional [facility] Utilities Answer Date Recorded In the past 12 months has e [employer], gas, oil, or water [employer] threatened to shut off services in your home? No 05/06/2023 Humiliation, Afraid, Rape, and Kick questionnair e Answer Date Recorded Within the last year, have y ou been afraid of your partner or ex-partner? No 05/06/2023 Within the last year, have y ou been humiliated or emotionally abused in other ways by your partner or ex-partner? No Within the last year, have y ou been kicked, hit, slapped, or otherwise physically hurt by your partner or ex-partner? No 05/06/2023 Within the last year, have y ou been raped or forced to have any kind of sexual activity by your partner or ex-partner? No 05/06/2023 Social Connection and Isolation Panel [NHANES] A nswer Date Recorded In a typical week, how many times do you talk on the phone with family, friends, or neighbors? Three times a week 05/06/19 How often do you get togethe r with friends or relatives? Three times a week 05/06/2023 How often do you attend chur ch or rastafarian services? 1 to 4 times per year 05/06/2023 Do you belong to any clubs o r organizations such as latter day groups, unions, fraternal or athletic groups, or school groups? No 05/06/2023 How often do you attend meet ings of the clubs or organizations you belong to? Never 05/06/2023 Are you , , di vorced, , never , or living with a partner? Never 05/06/2023 AUDIT-C Answer Date Recorded Q1: How often do you have a drink containing alc ohol? Monthly or less 05/06/2023 Q2: How many drinks containi ng alcohol do you have on a typical day when you are drinking? 5 or 6 05/06/2023 Q3: How often do you have si x or more drinks on one occasion? Less than monthly 05/06/2023 Overall Financial Resource Strain (CARDIA) Answe r Date Recorded How hard is it for you to pa y for the very basics like food, housing, medical care, and heating? Hard 05/06/2023 [facility] Occupat ional Health - Occupational Stress Questionnaire Answer Date Recorded Do you feel stress - tense, restless, nervous, or anxious, or unable to sleep at night because your mind is troubled all the time - these days? Very much 05/06/2023 Exercise Vital Sign Answer Date Recorde d On average, how many days pe r week do you engage in moderate to strenuous exercise (like a brisk walk)? 3 days 02/08/2023 On average, how many minutes do you engage in exercise at this level? 30 min 02/08/2023 Hunger Vital Sign Answer Date Recorded Within the past 12 months, y ou worried that your food would run out before you got the money to buy more. Often true 05/06/19 24 Within the past 12 months, t he food you bought just didn't last and you didn't have money to get more. Often true 05/06/2023 PRAPARE - Transportation Answer Date Re corded In the past 12 months, has l ack of transportation kept you from medical appointments or from getting medications? No 04/17 In the past 12 months, has l ack of transportation kept you from meetings, work, or from getting things needed for daily living? No 05/06/2023 Housing Stability Vital Sign Answer Nolberto e Recorded In the last 12 months, was t here a time when you were not able to pay the mortgage or rent on time? Yes 05/06/2023 In the last 12 months, how many places have you lived? 1 05/06/2023 In the last 12 months, was t here a time when you did not have a steady place to sleep or slept in a snf (including now)? 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 Not on file Not on ramses e Not on file Last Filed Vital Signs Vital Sign Reading Time Taken Comments Blood Pressure 145/93 03/08/2024 3:30 PM STUBBER Pulse 84 03/08/2024 3:45 PM STUBBER Temperature 36.6 C (97.9 F) 03/08/2024 1:47 PM STUBBER Respiratory Rate 12 03/08/2024 3:45 PM STUBBER Oxygen Saturation 97% 03/08/2024 3:45 PM STUBBER Inhaled Oxygen Concentration - - Weight 106.6 kg (235 lb) 03/08/2024 1:47 PM STUBBER Height 170.2 cm (5' 7 ) 03/08/2024 1:47 PM STUBBER Body Mass Index 36.81 03/08/2024 1:47 PM STUBBER Plan of Treatment Health Maintenance Due Date Last Done Comments Annual Physical 10/29/1987 Hepatitis C 2002 Hepatitis B Vaccines (1 of 3 - 19+ 3-dose series) 10/29/2003 Pneumococcal Vaccine: Pediatrics (0 to 5 Years) and At-Risk Patients (6 to 49 Years) (1 of 2 - PCV) 10/29/2003 COVID-19 Vaccine ( season) 2023 05/06/2021, 08/19/2020, 08/19/2020, Additional history exists ASCVD LDL 02/09/2024 02/08/2023 DTaP, Tdap and Td Vaccines (3 - Td or Tdap) 08/14/2032 08/14/2022, 05/06/2021 HPV Vaccines Aged Out No longer eligi ble based on patient's age to complete this topic Meningococcal B Vaccine Aged Out No l onger eligible based on patient's age to complete this topic Meningococcal Vaccine Aged Out No juan f na eligible based on patient's age to complete this topic RSV Immunizations Under 20 Months Aged Out No longer eligible based on patient's age to complete this topic Goals Goal Patient Goal Type Associated Problems Recent Progress Patient-Stated? Author Patient will return to prior living situation and remain independent in ADLs upon discharge from hospital Lifestyle No Krysten Roy, ceramic tile setter Procedure Name Priority Date/Time Associated Diagnosis Comments LIPID PANEL Routine 02/08/2023 6:26 AM CDT from Last 3 Months or Most Recently Relevant to Health Maintenance Results * (ABNORMAL) LIPID PANEL (02/08/2023 6:26 AM CDT) CHOLESTEROL 228(H) <200 MG/DL 02/08/2023 7:35 AM CDT [facility] TRIGLYCERIDES 181(H) <150 MG/DL 02/08/2023 7:35 AM CDT [facility] HDL 44 >40.0 MG/DL 02/08/2023 7:35 AM CDT [facility] LDL (CALCULATED) 148(H) <100 MG/DL 02/08/2023 7:35 AM CDT [facility] NON HDL CHOLESTEROL 184(H) <130 MG/DL 02/08/2023 7:35 AM CDT [facility] CHOL/HDL RATIO 5.2(H) 0.0 - 4.5 02/08/2023 7:35 AM CDT [facility] VLDL CALCULATION 36 5 - 55 MG/DL 02/08/2023 7:35 AM CDT [facility] LIPID INTERPRETATION 02/08/2023 7:35 AM CDT [facility] Comment: [facility] CONCENSUS REPORT RECOMMENDATIONS: ADULT CHILD LOW RISK: CHOLESTEROL <200 <170 TRIGLYCERIDE <150 --- HDL >=60 --- LDL <100 <110 BORDERLINE: CHOLESTEROL 200-239 170-199 TRIGLYCERIDE 150-199 --- HDL 40-59 --- LDL 100-159 110-129 HIGH RISK: CHOLESTEROL >=240 >=200 TRIGLYCERIDE >=200 --- HDL <40 --- LDL >=160 >=130 02/08/2023 6:26 AM CDT [facility] Final Resul t [facility] [address] [place] [address], from Last 3 Months or Most Recently Relevant to Health Maintenance Additional Health Concerns Infection Onset Date Last Indicated MRSA Comment: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 Advance Directives Documents on File Type Date Recorded Patient Event Marketing Manager Expl anation Advance Directives and Living Will 10/16/2023 4:25 PM 05/11/23 POA FOR HC * Full Code (Latest Code Status on File) Date Activated Date Inactivated Comments 05/06/2023 2:33 PM 05/12/2023 2:02 PM * Full Code Date Activated Date Inactivated Comments 02/09/2023 1:15 PM 02/11/2023 1:55 PM * Full Code Date Activated Date Inactivated Comments 02/10/2018 1:42 PM 02/14/2018 7:24 PM * Full Code Date Activated Date Inactivated Comments 01/28/2018 11:25 PM 01/30/2018 6:10 PM Healthcare Agents on File Name Relationship Healthcare Agent [facility] Communication Tory Hoover Mother Health Care Agent Care Teams Mergers And Acquisitions Attorney Relationship Specialty Start Date End Date Kimberley Gandara PA-C [address] [place] [place] [address] PCP - General NURSE PRACTITIONER 01/07/21 Yonathan Stein MD [employer] Worker CARDIOVASCULAR DISEASE 02/21/18
--- OUTSIDE RECORDS SUMMARY | 2024-08-19 17:47 | XMS_ITS | Data Portability ---
[facility] Address [address] [place] [address] Care Team Providers Care Timber Faller Name Role Phone KIMBERLEY WILL Primary Care Provider [phone] Assessment Encounter Date Assessment Date Assessment LastModified by Organization Details LastModified Time 10/08/2023 10/08/2023 37yo M presents for [facility] with mother. Hx of CLAUDIA, NICHOLAS, MDD, trauma. Symptom Hx of AH (current), severe anxiety, moderate depression. Drugs THC smoke daily x 20yrs., Tobacco__1__pk/d , EtOH__on many weekends, 12pk. C/C this visit is anxiety. IMPRESSION: Dependent, passive young man with significant cardiac issues (ND, valve replacement, CHF) on many cardiac meds. CLAUDIA EtOH and THC current and hx; admits psychological dependence on THC for anxiety; states he will not stop even when educated their contribution to his s/s. Past and recent life stressors. Overcome with anxiety. PLAN: - Target s/s: trauma/anxiety/d epression, AH; CLAUDIA - Continue: - abilify but increase from 15mg to 20mg - sertraline 100mg PO qd (take 2 tabs daily) - helps in AM makes me happy - START: - abilify 15mg (was 10mg) - Buspar 5mg PO BID - Labs: Labs: Pt had them done at [facility]. Have not received them from [facility]. Pt will bring them in. CONTINUE TO CHECK INR - Referral to no one - Encouraged less EtOH, THC - Educated ADR/SEs of Abilify and Buspar, including serotonin s/s and when to go to the ER. Educated how EtOH and THC are working against his s/s and meds. - Consider: Lybalvi (zyprexa + naltrexone-like) if Abilify does not work; inc zoloft if still major depression [NOTE: any SSRI (e.g. prozac-displace, fluvoxamine-disp lace for psychotic/delusi onal D) or Effexor for depression (NICHOLAS) [can displace warfarin to inc bleeding risk] OR change to Trintillex; increase buspar for anxiety if needed - FU:How is inc of abilify to 20mg working for AH? how is anx, depression? [email or web address] Not available 10/16/2023 15:03:15 10/22/2023 10/22/2023 37yo M presents for FU with mother. Hx of CLAUDIA, NICHOLAS, MDD, trauma. Symptom Hx of AH (current), severe anxiety, moderate depression. Drugs THC smoke daily x 20yrs., Tobacco__1__pk/d , EtOH__on many weekends, 12pk. C/C this visit is psychosis (AH, paranoia). IMPRESSION: Dependent, passive young man with significant cardiac issues (ND, valve replacement, CHF) on many cardiac meds. CLAUDIA EtOH and THC current and hx; admits psychological dependence on THC for anxiety; states he no longer smokes THC daily. Past and recent life stressors. Anxiety now less. Depression moderate. Psychosis improved but still present. PLAN: - Target s/s: psychosis (AH, paranoia), trauma/anxiety/d epression; CLAUDIA - Continue: - abilify 20mg PO Qd - sertraline 100mg PO qd (take 2 tabs daily) - helps in AM makes me happy - buspar 5mg PO BID - Pt is taking PRN and feels it helps this way - START: - Lybalvi 5mg/10mg - Ordered this med but will require a PA. Waiting for the pharmacy kickback to the order to see what med trials are needed before beginning Lybalvi. Provided Pt with 2 weeks of samples with instruction to not begin taking them until he hears from this provider (who will review the med trial requirements first). - Labs: Labs: Pt had them done at [facility]. Have not received them from [facility]. Pt will bring them in. CONTINUE TO CHECK INR - Referral to no one - Encouraged less EtOH, THC - Educated ADR/SEs of Lybalvi and Buspar, including serotonin s/s, NMS, DRESS and when to go to the ER. Educated how EtOH and THC are working against his s/s and meds. - Consider: Lybalvi (zyprexa + naltrexone-like) if Abilify does not work; inc zoloft if still major depression [NOTE: any SSRI (e.g. prozac-displace, fluvoxamine-disp lace for psychotic/delusi onal D) or Effexor for depression (NICHOLAS) [can displace warfarin to inc bleeding risk] OR change to Trintillex; increase buspar for anxiety if needed - FU: 2 weeks. IF started lybalvi, then did you get INR 4 days after starting? How is paranoia and AH? How is tapering on Abilify going? How is depression? [email or web address] Not available 10/22/2023 17:24:04 11/05/2023 11/05/2023 37yo M presents for FU with mother. Hx of CLAUDIA, NICHOLAS, MDD, trauma. Symptom Hx of AH (current), severe anxiety, moderate depression. Drugs THC smoke daily x 20yrs., Tobacco__1__pk/d , EtOH__on many weekends, 12pk. C/C this visit is psychosis (AH, paranoia). IMPRESSION: Dependent, passive young man with significant cardiac issues (ND, valve replacement, CHF) on many cardiac meds. CLAUDIA EtOH and THC current and hx; admits psychological dependence on THC for anxiety; states he no longer smokes THC daily. Past and recent life stressors. Anxiety now less. Depression moderate. Psychosis improved but still present. PLAN: - Target s/s: psychosis (AH, paranoia), trauma/anxiety/d epression; CLAUDIA - Continue: - abilify 20mg PO Qd - sertraline 100mg PO qd (take 2 tabs daily) - buspar 5mg PO BID - has been taking qd, will now take BID - START (when PA is approved): - Lybalvi 5mg/10mg - Ordered this med but will require a PA. Waiting for insurance company to kickback to the order to see what med trials are needed before beginning Lybalvi. Provided Pt with 2 weeks of samples last visit with instruction to not begin taking them until he hears from this provider (who will review the med trial requirements first). - Labs: Labs: 09-20-23 A1C 6.0. CONTINUE TO CHECK INR - Referral to no one - Encouraged less EtOH, THC - Educated ADR/SEs of Lybalvi and Buspar, including serotonin s/s, NMS, DRESS and when to go to the ER. Educated how EtOH and THC are working against his s/s and meds. - Consider: Lybalvi (zyprexa + naltrexone-like) if Abilify does not work; inc zoloft if still major depression [NOTE: any SSRI (e.g. prozac-displace, fluvoxamine-disp lace for psychotic/delusi onal D) or Effexor for depression (NICHOLAS) [can displace warfarin to inc bleeding risk] OR change to Trintillex; increase buspar for anxiety if needed - Refilled abilify, sertraline, buspar - FU: IF started lybalvi, then did you get INR 4 days after starting? How is paranoia and AH? How is tapering on Abilify going? How is depression? ADDITIONAL INFORMATION [email or web address] Not available 11/05/2023 21:25:02 12/03/2023 12/03/2023 37yo M presents for FU with mother. Hx of CLAUDIA, NICHOLAS, MDD, trauma. Symptom Hx of AH (current), severe anxiety, moderate depression. Drugs THC smoke daily x 20yrs., Tobacco__1__pk/d , EtOH__on many weekends, 12pk. C/C this visit is psychosis (AH, paranoia). IMPRESSION: Dependent, passive young man with significant cardiac issues (ND, valve replacement, CHF) on many cardiac meds. CLAUDIA EtOH and THC current and hx; admits psychological dependence on THC for anxiety; states he no longer smokes THC daily. Past and recent life stressors. Anxiety now less. Depression moderate. Psychosis improved but still present. PLAN: - Target s/s: psychosis (AH, paranoia), trauma/anxiety/d epression; CLAUDIA - Continue: - abilify 20mg PO Qd - sertraline 100mg PO qd (take 2 tabs daily) - buspar 5mg PO BID - START: abilify 5mg for continued AH - NOTE: Lybalvi 5mg/10mg - PA was denied. * Need to fail all of these: ANTIPSYCHOTIC MEDICATIONS Haloperidol, Aripiprazole, Olanzapine, Quetiapine, Risperidone - *Provided Pt with 90 day refills of all MH meds for his move to [place] - Labs: Labs: 09-20-23 A1C 6.0. CONTINUE TO CHECK INR - Referral to no one - Encouraged less EtOH, THC - Educated ADR/SEs of Buspar, including serotonin s/s, NMS, DRESS and when to go to the ER. Educated how EtOH and THC are working against his s/s and meds. - Notified PCP of Pt's move; all medical meds were confirmed to be recently supplied for 90 days - Consider: anoter SGA if Abilify does not work; inc zoloft if still major depression [NOTE: any SSRI (e.g. prozac-displace, fluvoxamine-disp lace for psychotic/delusi onal D) or Effexor for depression (NICHOLAS) [can displace warfarin to inc bleeding risk] OR change to Trintillex; increase buspar for anxiety if needed - FU: 3 mths. How was [place]? Need med refills? How is AH with extra 5mg abilify? How is paranoia that people will steal his things? [email or web address] Not available 12/03/2023 20:46:43 Plan of Treatment Reminders Order Date Submit Date Provider Last Modified By Organization Details Last Modified Time Details Appointments None record ed. Lab lipid panel, serum 2024 025 [facility], [address] [facility], [address], [place], [address], 5 23:08:20 CMP, serum or plasma 2024 025 [facility], [address] [place] [address], [address], [place], [address], 5 23:08:21 HbA1c (hemog lobin A1c), blood 2024 025 [facility], [address] [place] [address], [address], [place], [address], 5 07:17:30 PT/PTT , plasma 2024 025 [facility], [address] [place] [address], [address], [place], [address], 5 07:17:32 Referral cardio logist referr al 2024 025 [email or web address], [facility], [address], [place], [address], 5 07:59:51 Procedures None record ed. Surgeries None record ed. Imaging None record ed. Medication Orders sertra line 100 mg tablet 2024 025 [facility], [address] [place], [address], 5 10:37:23 buspir one 5 mg tablet 2023 025 [facility], [address] [place], [address], 5 10:37:35 Abilif y 20 mg tablet 2023 025 [facility], [address] [place], [address], 5 10:37:33 Abilif y 5 mg tablet 2023 025 [facility], [address] [place] [address], [address], 5 11:08:36 sertra line 100 mg tablet 2023 024 [facility], [address] [place], [address], 4 17:02:36 buspir one 5 mg tablet [address] [facility], [address] [place] [address], [address], 5 10:37:26 Abilif y 20 mg tablet [address] [facility] [address] [facility], [address] [place] [address], [address], 5 10:37:20 sertra line 100 mg tablet 2023 024 [facility], [address] [place] [address], [address], 4 16:24:29 Lybalv i 5 mg-10 mg tablet 2023 024 [facility], [address] [place] [address], [address], 4 16:59:02 Lybalv i 5 mg-10 mg tablet 2023 024 [facility], [address] [place] [address], [address], 4 16:59:02 Abilif y 20 mg tablet [address] [facility] [address] [facility], [address] [place] [address], [address], 5 10:37:20 Patient Targets Encounter Date Encounter Id Patient Goals Patient Target Last Modified By Organization Details Last Modified Time getting back to a routine so I can go back to work; sleeping and everything right [email or web address] Not available 10/08/2023 01:03:49 getting back to a routine so I can go back to work; sleeping and everything right [email or web address] Not available 10/22/2023 15:54:02 getting back to a routine so I can go back to work; sleeping and everything right [email or web address] Not available 11/05/2023 14:57:51 getting back to a routine so I can go back to work; sleeping and everything right [email or web address] Not available 12/03/2023 14:49:21 Patient Instructions Encounter Date Encounter Id Patient Instructions Last Modified By Organization Details Last Modified Time 10/08/2023 [id number] Pt. advised to call 911 or go to a local Emergency Department with any SI or HI, thoughts of self harm or any psychiatric emergency. Pt. is deemed safe and appropriate for continued out patient treatment. Pt. advised of the risk benefit ratio of medication, possible side effects and interactions of the meditations. Pt. wishes to continue with the treatment plan. Pt. advised to call or come in sooner than the scheduled appt. if there are any worsening of symptoms or problems with the medication. [email or web address] Not available 10/08/2023 01:03:49 10/22/2023 [id number] Pt. advised to call 911 or go to a local Emergency Department with any SI or HI, thoughts of self harm or any psychiatric emergency. Pt. is deemed safe and appropriate for continued out patient treatment. Pt. advised of the risk benefit ratio of medication, possible side effects and interactions of the meditations. Pt. wishes to continue with the treatment plan. Pt. advised to call or come in sooner than the scheduled appt. if there are any worsening of symptoms or problems with the medication. [email or web address] Not available 10/22/2023 15:54:03 11/05/2023 [id number] Pt. advised to call 911 or go to a local Emergency Department with any SI or HI, thoughts of self harm or any psychiatric emergency. Pt. is deemed safe and appropriate for continued out patient treatment. Pt. advised of the risk benefit ratio of medication, possible side effects and interactions of the meditations. Pt. wishes to continue with the treatment plan. Pt. advised to call or come in sooner than the scheduled appt. if there are any worsening of symptoms or problems with the medication. [email or web address] Not available 11/05/2023 14:57:51 12/03/2023 [id number] Discussed Pt's need to continue all medications even after he goes to [place], especially his warfarin. Emphasized this to Pt. Pt verbalized understanding. Discussed Pt's need to obtain [facility] medical care right away after going/moving to [place]. Pt verbalized understanding and agreement. 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 Pt. advised to call 911 or go to a local Emergency Department with any SI or HI, thoughts of self harm or any psychiatric emergency. Pt. is deemed safe and appropriate for continued out patient treatment. Pt. advised of the risk benefit ratio of medication, possible side effects and interactions of the meditations. Pt. wishes to continue with the treatment plan. Pt. advised to call or come in sooner than the scheduled appt. if there are any worsening of symptoms or problems with the medication. 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) [address] [place], [address], 09/21/2023 10:17:24 09/20/19 24 09/21/2023 LIPID PANEL triglyceride s 161 mg/dL 0-149 above high normal Not Available [facility] ([facility]) [address] [place], [address], 09/21/2023 10:17:24 09/20/19 24 09/21/2023 LIPID PANEL HDL cholesterol 45 mg/dL >39 Not Available [facility]) [address] [facility], [place], [address], 09/21/2023 10:17:24 09/20/19 24 09/21/2023 LIPID PANEL VLDL cholesterol alex 28 mg/dL 5-40 Not Available [facility] ([facility]) [address] [facility], [place], [address], 09/21/2023 10:17:24 09/20/19 24 09/21/2023 LIPID PANEL LDL chol calc ([facility]) 99 mg/dL 0-99 Not Available [facility] ([facility]) [address] [facility], [place], [address], 09/21/2023 10:17:24 09/20/19 24 09/21/2023 CBC, PLATE LET, NO DIFFE RENTI AL WBC 6.0 x10e3 /uL 3.4-10 .8 Not Available [facility] ([facility]) [address] [facility], [place], [address], 09/21/2023 10:17:25 09/20/19 24 09/21/2023 CBC, PLATE LET, NO DIFFE RENTI AL RBC 5.43 x10e6 /uL 4.14-5 .80 Not Available [facility] ([facility]) [address] [facility], [place], [address], 09/21/2023 10:17:25 09/20/19 24 09/21/2023 CBC, PLATE LET, NO DIFFE RENTI AL hemoglobin 15.9 g/dL 13.0-1 7.7 Not Available [facility] ([facility]) [address] [facility], [place], [address], 09/21/2023 10:17:25 09/20/19 24 09/21/2023 CBC, PLATE LET, NO DIFFE RENTI AL hematocrit 47.3 % 37.5-5 1.0 Not Available [facility] ([facility]) [address] [place], [address], 09/21/2023 10:17:25 09/20/19 24 09/21/2023 CBC, PLATE LET, NO DIFFE RENTI AL MCV 87 fL 79-97 Not Available [facility] ([facility]) [address] [place], [address], 09/21/2023 10:17:25 09/20/1909/21/2023 CBC, PLATE LET, NO DIFFE RENTI AL MCH 29.3 pg 26.6-3 3.0 Not Available [facility] ([facility]) [address] [facility], [place], [address], 09/21/2023 10:17:25 09/20/19 24 09/21/2023 CBC, PLATE LET, NO DIFFE RENTI AL MCHC 33.6 g/dL 31.5-3 5.7 Not Available [facility] ([facility]) [address] [place], [address], 09/21/2023 10:17:25 09/20/19 24 09/21/2023 CBC, PLATE LET, NO DIFFE RENTI AL RDW 13.5 % 11.6-1 5.4 Not Available [facility] ([facility]) [address] [place], [address], 09/21/2023 10:17:25 09/20/19 24 09/21/2023 CBC, PLATE LET, NO DIFFE RENTI AL platelets 228 x10e3 /uL 150-45 0 Not Available [facility] ([facility]) [address] [place], [address], 09/21/2023 10:17:25 09/20/19 24 09/21/2023 TOTAL NEUTR OPHIL COUNT WBC 5.6 x10e3 /uL 3.4-10 .8 Not Available [facility] [address] [place], [address], 09/24/2023 17:09:07 09/20/19 24 09/21/2023 TOTAL NEUTR OPHIL COUNT neutrophils 73 % notest ab. Not Available [facility] [address] [place], [address], 09/24/2023 17:09:07 09/20/19 24 09/21/2023 TOTAL NEUTR OPHIL COUNT neutrophils (absolute) 4.1 x10e3 /uL 1.4-7. 0 Not Available [facility] [address] [place], [address], 09/24/2023 17:09:07 09/20/19 24 09/21/2023 CMP14 +EGFR glucose 162 mg/dL 70-99 above high normal Not Available [facility] [address] [place], [address], 09/24/2023 17:09:08 09/20/19 24 09/21/2023 CMP14 +EGFR BUN 7 mg/dL 6-20 Not Available [facility] [address] [place], [address], 09/24/2023 17:09:08 09/20/19 24 09/21/2023 CMP14 +EGFR creatinine 0.98 mg/dL 0.76-1 .27 Not Available [facility] [address] [place], [address], 09/24/2023 17:09:08 09/20/19 24 09/21/2023 CMP14 +EGFR eGFR 101 mL/mi n/1.7 3 >59 Not Available [facility] [address] [place], [address], 09/24/2023 17:09:08 09/20/19 24 09/21/2023 CMP14 +EGFR BUN/creatini ne ratio 7 9-20 below low normal Not Available [facility] [address] [place], [address], 09/24/2023 17:09:08 09/20/19 24 09/21/2023 CMP14 +EGFR sodium 139 mmol/ L 134-14 4 Not Available [facility] [address] [place], [address], 09/24/2023 17:09:08 09/20/19 24 09/21/2023 CMP14 +EGFR potassium 4.2 mmol/ L 3.5-5. 2 Not Available [facility] [address] [place], [address], 09/24/2023 17:09:08 09/20/19 24 09/21/2023 CMP14 +EGFR chloride 103 mmol/ L 96-106 Not Available [facility] [address] [place], [address], 09/24/2023 17:09:08 09/20/19 24 09/21/2023 CMP14 +EGFR carbon dioxide, total 18 mmol/ L 20-29 below low normal Not Available [facility] [address] [place], [address], 09/24/2023 17:09:08 09/20/19 24 09/21/2023 CMP14 +EGFR calcium 9.3 mg/dL 8.7-10 .2 Not Available [facility] [address] [place], [address], 09/24/2023 17:09:08 09/20/19 24 09/21/2023 CMP14 +EGFR protein, total 6.9 g/dL 6.0-8. 5 Not Available [facility] [address] [place], [address], 09/24/2023 17:09:08 06/06/20 24 09/21/2023 CMP14 +EGFR albumin 4.6 g/dL 4.1-5. 1 Not Available [facility] [address] [place], [address], 09/24/2023 17:09:08 09/20/19 24 09/21/2023 CMP14 +EGFR globulin, total 2.3 g/dL 1.5-4. 5 Not Available [facility] [address] [place], [address], 09/24/2023 17:09:08 09/20/19 24 09/21/2023 CMP14 +EGFR A/G ratio 2.0 1.2-2. 2 Not Available [facility] [address] [place], [address], 09/24/2023 17:09:08 09/20/19 24 09/21/2023 CMP14 +EGFR bilirubin, total 0.4 mg/dL 0.0-1. 2 Not Available [facility] [address] [place], [address], 09/24/2023 17:09:08 09/20/19 24 09/21/2023 CMP14 +EGFR alkaline phosphatase 118 IU/L 44-121 Not Available [facility] [address] [place], [address], 09/24/2023 17:09:08 09/20/19 24 09/21/2023 CMP14 +EGFR AST (SGOT) 54 IU/L 0-40 above high normal Not Available [facility] [address] [place], [address], 09/24/2023 17:09:08 09/20/19 24 09/21/2023 CMP14 +EGFR ALT (SGPT) 101 IU/L 0-44 above high normal Not Available [facility] [address] [place], [address], 09/24/2023 17:09:08 09/20/19 24 09/21/2023 TSH RFX ON ABNOR MAL TO FREE T4 TSH 1.100 uIU/m L 0.450- 4.500 Not Available [facility] [address] [place], [address], 09/24/2023 17:09:09 09/20/1909/24/2023 PROTH ROMBI N TIME, INR prothrombin time 34.9 sec above high normal Refer ence Range : 18 years and older : 9.1 - 12.0 Not Available [facility] [address] [place], [address], 09/24/2023 17:09:10 09/20/1909/24/2023 PROTH ROMBI N TIME, INR INR 3.7 ratio above high normal Refer ence Range : >1 month : 0.9 - 1.2 Not Available [facility] [address] [place], [address], 09/24/2023 17:09:10 09/20/19 24 09/21/2023 VITAM IN B12 AND FOLAT E vitamin B12 764 pg/mL 232-12 45 Not Available [facility] [address] [place], [address], 09/24/2023 17:09:12 09/20/19 24 09/21/2023 VITAM IN B12 AND FOLAT E folate (folic acid), serum 5.7 NG/mL >3.0 A serum folat e emery ntrat ion of less than 3.1 ng/mL is consi dered to repre sent clini alex defic iency . Not Available [facility] [address] [place], [address], 09/24/2023 17:09:12 09/20/19 24 09/21/2023 HEMOG LOBIN A1C hemoglobin A1C 6.0 % 4.8-5. 6 above high normal Predi abete s: 5.7 - 6.4 Diabe ariana: >6.4 Glyce onel contr ol for adult s with diabe ariana: <7.0 Not Available [facility] [address] [place], [address], 09/24/2023 17:09:13 09/20/19 24 09/21/2023 PT AND PTT INR 3.6 0.9-1. 2 above high normal Refer ence inter rian is for non-a ntico agula cindy patie nts. Sugge sted INR thera peuti c range for Vitam in K antag onist thera py: Stand alexander Dose (mode rate inten sity thera peuti c range ): 2.0 - 3.0 Highe r inten sity thera peuti c range 2.5 - 3.5 Not Available [facility] [address] [place], [address], 09/24/2023 17:09:14 09/20/19 24 09/21/2023 PT AND PTT prothrombin time 35.4 sec 9.1-12 .0 above high normal Not Available [facility] [address] [place], [address], 09/24/2023 17:09:14 09/20/19 24 09/21/2023 PT AND PTT APTT 59 sec 24-33 above high normal This test has not been valid ated for [facility] unfra ction ated hepar in thera py. aPTT- based thera peuti c range s for unfra ction ated hepar in thera py have not been estab dae [employer] guide lines on Hepar in [facility] , refer to the [facility] Krissy bales of [employer] carlos rodríguez. Not Available [facility] [address] [place], [address], 09/24/2023 17:09:14 09/20/19 24 09/21/2023 VITAM IN D, 25-HY DROXY vitamin D, 25-hydroxy 43.1 NG/mL 30.0-1 00.0 Vitam in D defic iency has been defin ed by the Insti tute of Medic ine and an Endoc rine Socie ty pract ice guide line as a level of serum 25-OH vitam in D less than 20 ng/mL (1,2) . The Endoc rine Socie ty went on to furth er defin e vitam in D insuf ficie ncy as a level betwe en 21 and 29 ng/mL (2). 1. IOM (Inst itute of Medic ine). 2010. Dieta ry refer ence intak es for calci um and D. Vincent healy [place]: The [facility] . 2. Alexis kim MF, Samuel pham [place], Alyson off-F jimi i ZAPATA, et al. Evalu ation , treat ment, and preve ntion of vitam in D defic iency : an Endoc rine Socie ty clini alex pract ice guide line. JCEM. 2010; 96(7) :1911 -30. Not Available [facility] [address] [place], [address], 09/24/2023 17:09:15 09/20/19 24 09/27/2023 THYRO ID STIMU LATIN G HORMO NE TSH-icma 1.1 uu/mL Refer ence Range : Non-P regna nt Adult 0.450 -4.50 0 Not Available [facility] [address] [place], [address], 09/27/2023 16:14:15 09/20/19 24 09/28/2023 COMPL IANCE DRUG LUIS EDUARDO SIS, UR summary report (summary) FINAL ===== ===== ===== ===== ===== ===== ===== ===== ===== ===== ===== ===== ===== === TOXAS SURE COMP DRUG LUIS EDUARDO SIS,U R ===== ===== ===== ===== ===== ===== ===== ===== ===== ===== ===== ===== ===== === Test Resul t Flag Units Drug Prese nt Carbo xy-TH C 625 ng/mg creat Carbo xy-TH C is a metab olite of tetra hydro canna binol (THC) . Sourc e of THC is most commo nly herba l marij uana or marij uana- based produ cts, but THC is also prese nt in a sched uled presc ripti on medic ation . Trace amoun ts of THC can be prese nt in hemp and canna bidio l (CBD) produ cts. This test is not inten ded to disti nguis h betwe en delta -9-te trahy droca nnabi nol, the predo minan t form of THC in most herba l or marij uana- based produ cts, and delta -8-te trahy droca nnabi nol. Sertr amelie PRESE NT Desme thyls ertra line PRESE NT Desme thyls ertra line is an expec cindy metab olite of sertr amelie . Aripi prazo le PRESE NT Ibupr ofen PRESE NT ===== ===== ===== ===== ===== ===== ===== ===== ===== ===== ===== ===== ===== === Test Resul t Flag Units Ref Range Creat inine 88 mg/dL >=20 ===== ===== ===== ===== ===== ===== ===== ===== ===== ===== ===== ===== ===== === Decla red Medic ation s: Medic ation list was not provi ded. ===== ===== ===== ===== ===== ===== ===== ===== ===== ===== ===== ===== ===== === For clini alex consu ltati on, pleas e call [phone]. ===== ===== ===== ===== ===== ===== ===== ===== ===== ===== ===== ===== ===== === Not Available [facility] ([facility]) [address] [facility], [place], [address], 09/28/2023 20:10:29 09/20/19 24 09/28/2023 COMPL IANCE DRUG LUIS EDUARDO SIS, UR pdf . Not Available [facility] ([facility]) [address] [facility], [place], [address], 09/28/2023 20:10:29 10/04/19 24 10/04/2023 COMP. METAB OLIC PANEL (14) glucose 93 mg/dL 70-99 Not Available [facility] [address] [place] [address], [address], 10/04/2023 22:07:49 10/04/19 24 10/04/2023 COMP. METAB OLIC PANEL (14) BUN 9 mg/dL 6-20 Not Available [facility] [address] [place], [address], 10/04/2023 22:07:49 10/04/19 24 10/04/2023 COMP. METAB OLIC PANEL (14) creatinine 0.89 mg/dL 0.76-1 .27 Not Available [facility] [address] [place], [address], 10/04/2023 22:07:49 10/04/19 24 10/04/2023 COMP. METAB OLIC PANEL (14) eGFR 112 >=60 Units for eGFR value s are mL/mi n/1.7 3 The eGFR Calcu latio n has not been valid ated for patie nts under the age of 18. If test resul ts are displ ayed for a patie nt under the age of 18, disre sterling that value . Not Available [facility] [address] [place] [address], [address], 10/04/2023 22:07:49 10/04/19 24 10/04/2023 COMP. METAB OLIC PANEL (14) BUN/creatini ne ratio 11 9-[address] [facility] [address] [place] [address], [address], 10/04/2023 22:07:49 10/04/19 24 10/04/2023 COMP. METAB OLIC PANEL (14) sodium 142 mmol/ L 134-14 4 Not Available [facility] [address] [place] [address], [address], 10/04/2023 22:07:49 10/04/19 24 10/04/2023 COMP. METAB OLIC PANEL (14) potassium 4.6 mmol/ L 3.5-5. 2 Not Available [facility] [address] [place] [address], [address], 10/04/2023 22:07:49 10/04/19 24 10/04/2023 COMP. METAB OLIC PANEL (14) chloride 100 mmol/ L 96-106 Not Available [facility] [address] [place] [address], [address], 10/04/2023 22:07:49 10/04/19 24 10/04/2023 COMP. METAB OLIC PANEL (14) carbon dioxide, total 26 mmol/ L 20-29 Not Available [facility] [address] [place] [address], [address], 10/04/2023 22:07:49 10/04/19 24 10/04/2023 COMP. METAB OLIC PANEL (14) calcium 9.6 mg/dL 8.7-10 .2 Not Available [facility] [address] [place], [address], 10/04/2023 22:07:49 10/04/19 24 10/04/2023 COMP. METAB OLIC PANEL (14) protein, total 7.2 g/dL 6.0-8. 5 Not Available [facility] [address] [place], [address], 10/04/2023 22:07:49 10/04/19 24 10/04/2023 COMP. METAB OLIC PANEL (14) albumin 4.6 g/dL 4.1-5. 1 Not Available [facility] [address] [place], [address], 10/04/2023 22:07:49 10/04/19 24 10/04/2023 COMP. METAB OLIC PANEL (14) globulin, total 2.6 g/dL 1.5-4. 5 Not Available [facility] [address] [place], [address], 10/04/2023 22:07:49 10/04/19 24 10/04/2023 COMP. METAB OLIC PANEL (14) A/G ratio 2.0 1.2-2. 2 Not Available [facility] [address] [place], [address], 10/04/2023 22:07:49 10/04/19 24 10/04/2023 COMP. METAB OLIC PANEL (14) bilirubin, total 0.5 mg/dL 0.0-1. 2 Not Available [facility] [address] [place], [address], 10/04/2023 22:07:49 10/04/19 24 10/04/2023 COMP. METAB OLIC PANEL (14) alkaline phosphatase 117 IU/L 44-121 Not Available [facility] [address] [place], [address], 10/04/2023 22:07:49 10/04/19 24 10/04/2023 COMP. METAB OLIC PANEL (14) AST (SGOT) 50 IU/L 0-40 above high normal Not Available [facility] [address] [place], [address], 10/04/2023 22:07:49 10/04/19 24 10/04/2023 COMP. METAB OLIC PANEL (14) ALT (SGPT) 93 IU/L 0-44 above high normal Not Available [facility] [address] [place], [address], 10/04/2023 22:07:49 10/04/19 24 10/05/2023 ACUTE HEPAT ITIS hep A Ab, IgM NEGATI VE negati ve Not Available [facility] ([facility]) [address] [place], [address], 10/05/2023 11:17:57 10/04/19 24 10/05/2023 ACUTE HEPAT ITIS HBsAg screen NEGATI VE negati ve Not Available [facility] ([facility]) [address] [place], [address], 10/05/2023 11:17:57 10/04/19 24 10/05/2023 ACUTE HEPAT ITIS hep B core Ab, IgM NEGATI VE negati ve Not Available [facility] ([facility]) [address] [place], [address], 10/05/2023 11:17:57 10/04/19 24 10/05/2023 ACUTE HEPAT ITIS HCV Ab NON REACTI VE nonrea ctive Not Available [facility] ([facility]) [address] [place], [address], 10/05/2023 11:17:57 10/04/19 24 10/05/2023 INTER PRETA TION: interpretati on: Commen t Not infec cindy with HCV unles s early or acute infec tion is suspe cted (whic h may be delay ed in an immun ocomp romis ed indiv idual ), or other evide nce exist s to indic ate HCV infec tion. Not Available [facility] ([facility]) [address] [facility], [place], [address], 10/05/2023 11:17:58 10/04/19 24 10/05/2023 PT AND PTT INR 2.8 0.9-1. 2 above high normal Refer ence inter rian is for non-a ntico agula cindy patie nts. Sugge sted INR thera peuti c range for Vitam in K antag onist thera py: Stand alexander Dose (mode rate inten sity thera peuti c range ): 2.0 - 3.0 Highe r inten sity thera peuti c range 2.5 - 3.5 Not Available [facility] ([facility]) [address] [facility], [place], [address], 10/05/2023 11:17:59 10/04/19 24 10/05/2023 PT AND PTT prothrombin time 28.2 sec 9.1-12 .0 above high normal Not Available [facility] ([facility]) [address] [facility], [place], [address], 10/05/2023 11:17:59 10/04/19 24 10/05/2023 PT AND PTT APTT 57 sec 24-33 above high normal This test has not been valid ated for monit oring unfra ction ated hepar in thera py. aPTT- based thera peuti c range s for unfra ction ated hepar in thera py have not been estab dae xie For gener al guide lines on Hepar in monit oring , refer to the [facility] rodríg[facility]. Not Available [facility] ([facility]) [address] [place], [address], 10/05/2023 11:17:59 03/08/20 24 03/08/2024 Proth rombi n time (PT) prothrombin time (PT) 116.9 text: 10.2 - 12.9 sec high PROTI ME 116.9 (H) 10.2 - 12.9 SEC 03/08 2:51 PM [facility] Not Available Not Available 06/05/2024 03:19:55 03/08/20 24 03/08/2024 Proth rombi n time (PT) INR in platelet poor plasma by coagulation assay 10.9 critical high INR 10.9 (HH) 03/08 2:51 PM [facility] Not Available Not Available 06/05/2024 03:19:55 03/08/2003/08/2024 Proth rombi n time (PT) interpretati on and review of laboratory results Abnorm al Not Available Not Available 03:19:55 03/08/20 24 03/08/2024 Compr ehens emy metab olic 2000 panel - Serum or Plasm a glucose [mass/volume ] in serum or plasma 94 text: 70 - 99 mg/dL GLUCO SE 94 70 - 99 MG/DL 03/08 2:50 PM [facility] Not Available Not Available 06/05/2024 03:19:55 03/08/20 24 03/08/2024 Compr ehens emy metab olic 2000 panel - Serum or Plasm a urea nitrogen [mass/volume ] in serum or plasma 8 text: 7 - 18 mg/dL BUN 8 7 - 18 MG/DL 03/08 2:50 PM [facility] Not Available Not Available 06/05/2024 03:19:55 03/08/20 24 03/08/2024 Compr ehens emy metab olic 2000 panel - Serum or Plasm a creatinine [mass/volume ] in serum or plasma 0.91 text: 0.7 - 1.3 mg/dL CREAT ININE S/P/B 0.91 0.7 - 1.3 MG/DL 03/08 2:50 PM [facility] Not Available Not Available 06/05/2024 03:19:55 03/08/20 24 03/08/2024 Compr ehens mey metab olic 2000 panel - Serum or Plasm a sodium [moles/volum e] in serum or plasma 133 text: 136 - 145 mmol/L low SODIU M S/P/B 133 (L) 136 - 145 MMOL/ L 03/08 2:50 PM [facility] Not Available Not Available 06/05/2024 03:19:55 03/08/20 24 03/08/2024 Compr ehens emy metab olic 2000 panel - Serum or Plasm a potassium [moles/volum e] in serum or plasma 5 text: 3.5 - 5.1 mmol/L POTAS SIUM S/P/B 5.0 3.5 - 5.1 MMOL/ L 03/08 2:50 PM [facility] Not Available Not Available 06/05/2024 03:19:55 03/08/20 24 03/08/2024 Compr ehens emy metab olic 2000 panel - Serum or Plasm a chloride [moles/volum e] in serum or plasma 102 text: 97 - 115 mmol/L CHLOR MELA S/P/B 102 97 - 115 MMOL/ L 03/08 2:50 PM [facility] Not Available Not Available 06/05/2024 03:19:55 03/08/20 24 03/08/2024 Compr ehens emy metab olic 2000 panel - Serum or Plasm a carbon dioxide, total [moles/volum e] in serum or plasma 22.6 text: 21 - 32 mmol/L CO2 22.6 21 - 32 MMOL/ L 03/08 2:50 PM [facility] Not Available Not Available 06/05/2024 03:19:55 03/08/20 24 03/08/2024 Compr ehens emy metab olic 2000 panel - Serum or Plasm a calcium [mass/volume ] in serum or plasma 8.5 text: 8.5 - 10.1 mg/dL CALCI UM S/P/B 8.5 8.5 - 10.1 MG/DL 03/08 2:50 PM [facility] Not Available Not Available 06/05/2024 03:19:55 03/08/20 24 03/08/2024 Compr ehens emy metab olic 2000 panel - Serum or Plasm a bilirubin.to [place] [mass/volume ] in serum or plasma 0.8 text: 0.2 - 1.2 mg/dL BILIR UBIN TOTAL S/P/B 0.8 0.2 - 1.2 MG/DL 03/08 2:50 PM [facility] Not Available Not Available 06/05/2024 03:19:55 03/08/20 24 03/08/2024 Compr ehens emy metab olic 2000 panel - Serum or Plasm a protein [mass/volume ] in serum or plasma 7.9 text: 6.4 - 8.2 g/dL TOTAL PROTE IN S/P/B 7.9 6.4 - 8.2 G/DL 03/08 2:50 PM [facility] Not Available Not Available 06/05/2024 03:19:55 03/08/20 24 03/08/2024 Compr ehens emy metab olic 2000 panel - Serum or Plasm a albumin [mass/volume ] in serum or plasma 4.1 text: 3.4 - 5.0 g/dL ALBUM IN S/P/B 4.1 3.4 - 5.0 G/DL 03/08 2:50 PM [facility] Not Available Not Available 06/05/2024 03:19:55 03/08/20 24 03/08/2024 Compr ehens emy metab olic 2000 panel - Serum or Plasm a aspartate aminotransfe rase [enzymatic activity/vol ume] in serum or plasma 106 U/L low: 15U/Lh igh: 37U/L high AST 106 (H) 15 - 37 U/L 03/08 2:50 PM [facility] Not Available Not Available 06/05/2024 03:19:55 03/08/20 24 03/08/2024 Compr ehens emy metab olic 1999 panel - Serum or Plasm a alanine aminotransfe rase [enzymatic activity/vol ume] in serum or plasma 102 U/L low: 16U/Lh igh: 60U/L high ALT 102 (H) 16 - 60 U/L 03/08 2:50 PM [facility] Not Available Not Available 06/05/2024 03:19:55 03/08/20 24 03/08/2024 Compr ehens emy metab olic 1999 panel - Serum or Plasm a alkaline phosphatase [enzymatic activity/vol ume] in serum or plasma 114 U/L low: 50U/Lh igh: 136U/L ALKAL INE PHOSP HATAS E S/P/B 114 50 - 136 U/L 03/08 2:50 PM [facility] Not Available Not Available 06/05/2024 03:19:55 03/08/20 24 03/08/2024 Compr ehens emy metab olic 2000 panel - Serum or Plasm a anion gap in serum or plasma 8.4 text: 2 - 10 mmol/L ANION GAP 8.4 2 - 10 MMOL/ L 03/08 2:50 PM [facility] Not Available Not Available 06/05/2024 03:19:55 03/08/20 24 03/08/2024 Compr ehens emy metab olic 2000 panel - Serum or Plasm a urea nitrogen/cre atinine [mass ratio] in serum or plasma 8.8 low: 6high: 26 BUN CREAT ININE RATIO 8.8 6 - 26 03/08 2:50 PM [facility] Not Available Not Available 06/05/2024 03:19:55 03/08/20 24 03/08/2024 Compr ehens emy metab olic 2000 panel - Serum or Plasm a albumin/glob ulin [mass ratio] in serum or plasma 1.1 text: 1.0 - 2.0 ratio A/G RATIO 1.1 1.0 - 2.0 RATIO 03/08 2:50 PM [facility] Not Available Not Available 06/05/2024 03:19:55 03/08/20 24 03/08/2024 Compr ehens emy metab olic 2000 panel - Serum or Plasm a glomerular filtration rate/1.73 sq M.predicted [volume rate/area] in serum, plasma or blood by creatinine-b ased formula (CKD-epi 2020) >90 text: >90 mL/min /1.73 M2 GFR ESTIM ATE >90 >90 ML/ND N/1.7 3 M2 03/08 2:50 PM [facility] Not Available Not Available 06/05/2024 03:19:55 03/08/20 24 03/08/2024 Compr ehens emy metab olic 2000 panel - Serum or Plasm a interpretati on and review of laboratory results Abnorm al Not Available Not Available 03:19:55 03/08/20 24 03/08/2024 CBC W Auto Diffe renti al panel - Blood leukocytes [#/volume] in blood by automated count 9.76 text: 4.5 - 11.0 x10'3/ uL WBC 9.76 4.5 - 11.0 x10'3 /uL 03/08 2:39 PM [facility] Not Available Not Available 06/05/2024 03:19:55 03/08/20 24 03/08/2024 CBC W Auto Diffe renti al panel - Blood erythrocytes [#/volume] in blood by automated count 5.89 text: 4.70 - 6.10 x10'6/ uL RBC 5.89 4.70 - 6.10 x10'6 /uL 03/08 2:39 PM [facility] Not Available Not Available 06/05/2024 03:19:55 03/08/20 24 03/08/2024 CBC W Auto Diffe renti al panel - Blood hemoglobin [mass/volume ] in blood 17.7 text: 14.0 - 18.0 g/dL HGB 17.7 14.0 - 18.0 G/DL 03/08 2:39 PM [facility] Not Available Not Available 06/05/2024 03:19:55 03/08/20 24 03/08/2024 CBC W Auto Diffe renti al panel - Blood hematocrit [volume fraction] of blood 49.5 % low: 43%hig h: 54% HCT 49.5 43.0 - 54.0 % 03/08 2:39 PM [facility] Not Available Not Available 06/05/2024 03:19:55 03/08/2003/08/2024 CBC W Auto Diffe renti al panel - Blood MCV [entitic volume] 84 text: 80.0 - 94.0 fL MCV 84.0 80.0 - 94.0 FL 03/08 2:39 PM [facility] Not Available Not Available 06/05/2024 03:19:55 03/08/20 24 03/08/2024 CBC W Auto Diffe renti al panel - Blood MCH [entitic mass] 30.1 pg low: 27pghi gh: 31pg MCH 30.1 27.0 - 31.0 PG 03/08 2:39 PM [facility] Not Available Not Available 06/05/2024 03:19:55 03/08/20 24 03/08/2024 CBC W Auto Diffe renti al panel - Blood MCHC [mass/volume ] 35.8 text: 32.0 - 36.0 g/dL MCHC 35.8 32.0 - 36.0 G/DL 03/08 2:39 PM [facility] Not Available Not Available 06/05/2024 03:19:55 03/08/20 24 03/08/2024 CBC W Auto Diffe renti al panel - Blood erythrocyte distribution width [entitic volume] by automated count 14.2 % low: 11.5%h igh: 14.5% RDW 14.2 11.5 - 14.5 % 03/08 2:39 PM [facility] Not Available Not Available 06/05/2024 03:19:55 03/08/20 24 03/08/2024 CBC W Auto Diffe renti al panel - Blood platelets [#/volume] in blood 212 text: 130 - 400 x10'3/ uL PLT 212 130 - 400 x10'3 /uL 03/08 2:39 PM [facility] Not Available Not Available 06/05/2024 03:19:55 03/08/20 24 03/08/2024 CBC W Auto Diffe renti al panel - Blood platelet mean volume [entitic volume] in blood 10.4 text: 9.3 - 12.2 fL MPV 10.4 9.3 - 12.2 FL 03/08 2:39 PM [facility] Not Available Not Available 06/05/2024 03:19:55 03/08/20 24 03/08/2024 CBC W Auto Diffe renti al panel - Blood neutrophils/ 100 leukocytes in blood by automated count 83.6 % NEUTR OPHIL S % 83.6 % 03/08 2:39 PM [facility] Not Available Not Available 06/05/2024 03:19:55 03/08/20 24 03/08/2024 CBC W Auto Diffe renti al panel - Blood lymphocytes/ 100 leukocytes in blood by automated count 9.4 % LYMPH OCYTE S % 9.4 % 03/08 2:39 PM [facility] Not Available Not Available 06/05/2024 03:19:55 03/08/20 24 03/08/2024 CBC W Auto Diffe renti al panel - Blood monocytes/10 0 leukocytes in blood by automated count 6 % MONOC YTES % 6.0 % 03/08 2:39 PM [facility] Not Available Not Available 06/05/2024 03:19:55 11/23/03/08/2024 CBC W Auto Diffe renti al panel - Blood eosinophils/ 100 leukocytes in blood by automated count 0.2 % EOSIN OPHIL S 0.2 % 03/08 2:39 PM [facility] Not Available Not Available 06/05/2024 03:19:55 03/08/20 24 03/08/2024 CBC W Auto Diffe renti al panel - Blood basophils/10 0 leukocytes in blood by automated count 0.3 % BASOP HILS 0.3 % 03/08 2:39 PM [facility] Not Available Not Available 06/05/2024 03:19:55 03/08/20 24 03/08/2024 CBC W Auto Diffe renti al panel - Blood immature granulocytes /100 leukocytes in blood by automated count 0.5 % IMMAT URE GRANS % 0.5 % 03/08 2:39 PM [facility] Not Available Not Available 06/05/2024 03:19:55 03/08/20 24 03/08/2024 CBC W Auto Diffe renti al panel - Blood differential cell count method - blood AUTOMA CINDY DIFFER ENTIAL DIFFE RENTI AL TYPE AUTOM ATED DIFFE RENTI AL 03/08 2:39 PM [facility] Not Available Not Available 06/05/2024 03:19:55 03/08/20 24 03/08/2024 CBC W Auto Diffe renti al panel - Blood neutrophils [#/volume] in blood 8.15 text: 1.80 - 7.70 x10'3/ uL high ABS. NEUTR OPHIL S 8.15 (H) 1.80 - 7.70 x10'3 /uL 03/08 2:39 PM [facility] Not Available Not Available 06/05/2024 03:19:55 03/08/20 24 03/08/2024 CBC W Auto Diffe renti al panel - Blood lymphocytes [#/volume] in blood 0.92 text: 1.00 - 4.80 x10'3/ uL low ABS. LYMPH OCYTE S 0.92 (L) 1.00 - 4.80 x10'3 /uL 03/08 2:39 PM [facility] Not Available Not Available 06/05/2024 03:19:55 03/08/20 24 03/08/2024 CBC W Auto Diffe renti al panel - Blood monocytes [#/volume] in blood 0.59 text: 0.30 - 0.82 x10'3/ uL ABS. MONOC YTES 0.59 0.30 - 0.82 x10'3 /uL 03/08 2:39 PM [facility] Not Available Not Available 06/05/2024 03:19:55 03/08/20 24 03/08/2024 CBC W Auto Diffe renti al panel - Blood eosinophils [#/volume] in blood 0.02 text: 0.04 - 0.54 x10'3/ uL low ABS. EOSIN OPHIL S 0.02 (L) 0.04 - 0.54 x10'3 /uL 03/08 2:39 PM [facility] Not Available Not Available 06/05/2024 03:19:55 03/08/20 24 03/08/2024 CBC W Auto Diffe renti al panel - Blood basophils [#/volume] in blood 0.03 text: 0.01 - 0.08 x10'3/ uL ABS. BASOP HILS 0.03 0.01 - 0.08 x10'3 /uL 03/08 2:39 PM [facility] Not Available Not Available 06/05/2024 03:19:55 03/08/20 24 03/08/2024 CBC W Auto Diffe renti al panel - Blood immature granulocytes [#/volume] in blood 0.05 text: 0.00 - 0.49 x10'3/ uL ABS. IMMAT URE GRANU LOCYT ES 0.05 0.00 - 0.49 x10'3 /uL 03/08 2:39 PM [facility] Not Available Not Available 06/05/2024 03:19:55 03/08/20 24 03/08/2024 CBC W Auto Diffe renti al panel - Blood interpretati on and review of laboratory results Abnorm al Not Available Not Available 03:19:55 03/10/20 24 03/11/2024 PROTH ROMBI N TIME (PT) INR 1.6 0.9-1. 2 above high normal Refer ence inter rian is for non-a ntico agula cindy patie nts. Sugge sted INR thera peuti c range for Vitam in K antag onist thera py: Stand alexander Dose (mode rate inten sity thera peuti c range ): 2.0 - 3.0 Highe r inten sity thera peuti c range 2.5 - 3.5 Not Available [facility] ([facility]) [address] [place], [address], 03/11/2024 08:28:21 03/10/2003/11/2024 PROTH ROMBI N TIME (PT) prothrombin time 17.2 sec 9.1-12 .0 above high normal Not Available [facility] ([facility]) [address] [place], [address], 03/11/2024 08:28:21 06/05/19 25 06/05/2024 LIPID PANEL cholesterol, total 209 mg/dL 100-19 9 above high normal Not Available [facility] [address] [place], [address], 06/05/2024 23:08:20 06/05/19 25 06/05/2024 LIPID PANEL triglyceride s 318 mg/dL 0-149 above high normal Not Available [facility] [address] [place], [address], 06/05/2024 23:08:20 06/05/19 25 06/05/2024 LIPID PANEL HDL cholesterol 42 mg/dL 40-999 Not Available [facility] [address] [place], [address], 06/05/2024 23:08:20 06/05/19 25 06/05/2024 LIPID PANEL VLDL cholesterol alex 64 mg/dL 5-40 above high normal Not Available [facility] [address] [place], [address], 06/05/2024 23:08:20 06/05/19 25 06/05/2024 LIPID PANEL LDL chol calc (nih) 150 mg/dL 0-99 above high normal Not Available [facility] [address] [place], [address], 06/05/2024 23:08:20 06/05/19 25 06/05/2024 COMP. METAB OLIC PANEL (14) glucose 116 mg/dL 70-99 above high normal Not Available [facility] [address] [place] [address], [id number], 06/05/2024 23:08:21 06/05/19 25 06/05/2024 COMP. METAB OLIC PANEL (14) BUN 12 mg/dL 6-20 Not Available [facility] [address] [place], [address], 06/05/2024 23:08:21 06/05/19 25 06/05/2024 COMP. METAB OLIC PANEL (14) creatinine 1.00 mg/dL 0.76-1 .27 Not Available [facility] [address] [place], [address], 06/05/2024 23:08:21 06/05/19 25 06/05/2024 COMP. METAB OLIC PANEL (14) eGFR 98 >=60 Units for eGFR value s are mL/mi n/1.7 3 The eGFR Calcu latio n has not been valid ated for patie nts under the age of 18. If test resul ts are displ ayed for a patie nt under the age of 18, disre sterling that value . Not Available [facility] [address] [place] [address], [id number], 06/05/2024 23:08:21 06/05/19 25 06/05/2024 COMP. METAB OLIC PANEL (14) BUN/creatini ne ratio 12 9-[address] [facility] [address] [place], [address], 06/05/2024 23:08:21 06/05/19 25 06/05/2024 COMP. METAB OLIC PANEL (14) sodium 139 mmol/ L 134-14 4 Not Available [facility] [address] [place] [address], [id number], 06/05/2024 23:08:21 06/05/19 25 06/05/2024 COMP. METAB OLIC PANEL (14) potassium 4.5 mmol/ L 3.5-5. 2 Not Available [facility] [address] [place] [address], [id number], 06/05/2024 23:08:21 06/05/19 25 06/05/2024 COMP. METAB OLIC PANEL (14) chloride 98 mmol/ L 96-106 Not Available [facility] [address] [place], [address], 06/05/2024 23:08:21 06/05/19 25 06/05/2024 COMP. METAB OLIC PANEL (14) carbon dioxide, total 26 mmol/ L 20-29 Not Available [facility] [address] [place], [address], 06/05/2024 23:08:21 06/05/19 25 06/05/2024 COMP. METAB OLIC PANEL (14) calcium 9.8 mg/dL 8.7-10 .2 Not Available [facility] Department [address] [place], [address], 06/05/2024 23:08:21 06/05/19 25 06/05/2024 COMP. METAB OLIC PANEL (14) protein, total 7.2 g/dL 6.0-8. 5 Not Available [facility] Department [address] [place], [address], 06/05/2024 23:08:21 06/05/19 25 06/05/2024 COMP. METAB OLIC PANEL (14) albumin 4.5 g/dL 4.1-5. 1 Not Available [facility] Department [address] [place], [address], 06/05/2024 23:08:21 06/05/19 25 06/05/2024 COMP. METAB OLIC PANEL (14) globulin, total 2.7 g/dL 1.5-4. 5 Not Available [facility] Department [address] [place], [address], 06/05/2024 23:08:21 06/05/19 25 06/05/2024 COMP. METAB OLIC PANEL (14) A/G ratio 2.0 1.2-2. 2 Not Available [facility] Department [address] [place], [address], 06/05/2024 23:08:21 06/05/19 25 06/05/2024 COMP. METAB OLIC PANEL (14) bilirubin, total 0.5 mg/dL 0.0-1. 2 Not Available [facility] Department [address] [place], [address], 06/05/2024 23:08:21 06/05/19 25 06/05/2024 COMP. METAB OLIC PANEL (14) alkaline phosphatase 136 IU/L 44-121 above high normal Not Available [facility] Department [address] [place], [address], 06/05/2024 23:08:21 06/05/19 25 06/05/2024 COMP. METAB OLIC PANEL (14) AST (SGOT) 27 IU/L 0-40 Not Available [facility] Department [address] [place], [address], 06/05/2024 23:08:21 06/05/19 25 06/05/2024 COMP. METAB OLIC PANEL (14) ALT (SGPT) 48 IU/L 0-44 above high normal Not Available [facility] Department [address], [place], [address], 06/05/2024 23:08:21 06/05/19 25 06/06/2024 HEMOG LOBIN A1C hemoglobin A1C 5.3 % 4.8-5. 6 Predi abete s: 5.7 - 6.4 Diabe ariana: >6.4 Glyce onel contr ol for adult s with diabe ariana: <7.0 Not Available [facility] ([facility]) [address] [place], [address], 06/06/2024 07:17:30 06/05/19 25 06/06/2024 PT AND PTT INR 4.9 0.9-1. 2 above high normal Refer ence inter rian is for non-a ntico agula cindy patie nts. Sugge sted INR thera peuti c range for Vitam in K antag onist thera py: Stand alexander Dose (mode rate inten sity thera peuti c range ): 2.0 - 3.0 Highe r inten sity thera peuti c range 2.5 - 3.5 Not Available [facility] ([facility]) [address] [place], [address], 06/06/2024 07:17:32 06/05/19 25 06/06/2024 PT AND PTT prothrombin time 47.6 sec 9.1-12 .0 above high normal Not Available [facility] ([facility]) [address] [place], [address], 06/06/2024 07:17:32 06/05/19 25 06/06/2024 PT AND PTT APTT 59 sec 24-33 above high normal This test has not been valid ated for monit oring unfra ction ated hepar in thera py. aPTT- based thera peuti c range s for unfra ction ated hepar in thera py have not been estab lishe d. For gener al guide lines on Hepar in monit oring , refer to the [facility] Cristobalc amairani of [place] rodríguez. Not Available [facility] ([facility]) [address] [facility], [place], [address], 06/06/2024 07:17:32 07/04/19 25 07/04/2024 PT AND PTT INR 5.2 0.9-1. 2 panic high Abnor mal resul t has been verif ied by repea t testi ng. If incon siste nt with clini alex condi tion, pleas e resub jet anoth er speci men for verif icati on and to rule out speci men handl ing probl ems for which this test is very sensi tive. Refer ence inter rian is for non-a ntico agula cindy patie nts. Sugge sted INR thera peuti c range for Vitam in K antag onist thera py: Stand alexander Dose (mode rate inten sity thera peuti c range ): 2.0 - 3.0 Highe r inten sity thera peuti c range 2.5 - 3.5 Not Available [facility] ([facility]) [address] [facility], [place], [address], 07/04/2024 07:16:00 07/04/19 25 07/04/2024 PT AND PTT prothrombin time 50.4 sec 9.1-12 .0 above high normal Not Available [facility] ([facility]) [address] [facility], [place], [address], 07/04/2024 07:16:00 07/04/19 25 07/04/2024 PT AND PTT APTT 64 sec 24-33 alert high Tasia ified by repea t luis eduardo sis This test has not been valid ated for monit oring unfra ction ated hepar in thera py. aPTT- based thera peuti c range s for unfra ction ated hepar in thera py have not been estab dae xie For gener al guide lines on Hepar in [facility] , refer to the [facility] Direc amairani of [place] rodrí[facility]. Not Available [facility] ([facility]) [address] [place], [address], 07/04/2024 07:16:00 07/04/19 25 07/04/2024 LIPID PANEL cholesterol, total 206 mg/dL 100-19 9 above high normal Not Available [facility] ([facility]) [address] [place], [address], 07/04/2024 08:30:43 07/04/19 25 07/04/2024 LIPID PANEL triglyceride s 181 mg/dL 0-149 above high normal Not Available [facility] ([facility]) [address] [place], [address], 07/04/2024 08:30:43 07/04/19 25 07/04/2024 LIPID PANEL HDL cholesterol 52 mg/dL >39 Not Available [facility]) [address] [place], [address], 07/04/2024 08:30:43 07/04/19 25 07/04/2024 LIPID PANEL VLDL cholesterol alex 32 mg/dL 5-40 Not Available [facility] ([facility]) [address] [place], [address], 07/04/2024 08:30:43 07/04/19 25 07/04/2024 LIPID PANEL LDL chol calc ([facility]) 122 mg/dL 0-99 above high normal Not Available [facility] ([facility]) [address] [place], [address], 07/04/2024 08:30:43 07/04/19 25 07/04/2024 COMP. METAB OLIC PANEL (14) glucose 107 mg/dL 70-99 above high normal Not Available [facility] ([facility]) [address] [place], [address], 07/04/2024 08:30:44 07/04/19 25 07/04/2024 COMP. METAB OLIC PANEL (14) BUN 9 mg/dL 6-20 Not Available [facility] ([facility]) [address] [facility], [address], 07/04/2024 08:30:44 07/04/19 25 07/04/2024 COMP. METAB OLIC PANEL (14) creatinine 0.93 mg/dL 0.76-1 .27 Not Available [facility] ([facility]) [address] [facility] [place], [address], 07/04/2024 08:30:44 07/04/19 25 07/04/2024 COMP. METAB OLIC PANEL (14) eGFR 107 mL/mi n/1.7 3 >59 Not Available [facility] ([facility]) [address] [facility] [place], [address], 07/04/2024 08:30:44 07/04/19 25 07/04/2024 COMP. METAB OLIC PANEL (14) BUN/creatini ne ratio 10 9-20 Not Available [facility] ([facility]) [address] [facility] [place], [address], 07/04/2024 08:30:44 07/04/19 25 07/04/2024 COMP. METAB OLIC PANEL (14) sodium 140 mmol/ L 134-14 4 Not Available [facility] ([facility]) [address] [facility] [place], [address], 07/04/2024 08:30:44 07/04/19 25 07/04/2024 COMP. METAB OLIC PANEL (14) potassium 4.0 mmol/ L 3.5-5. 2 Not Available [facility] ([facility]) [address] [facility] [place], [address], 07/04/2024 08:30:44 07/04/19 25 07/04/2024 COMP. METAB OLIC PANEL (14) chloride 98 mmol/ L 96-106 Not Available [facility] ([facility]) [address] [place], [address], 07/04/2024 08:30:44 07/04/19 25 07/04/2024 COMP. METAB OLIC PANEL (14) carbon dioxide, total 25 mmol/ L 20-29 Not Available [facility] ([facility]) [address] [place], [address], 07/04/2024 08:30:44 07/04/19 25 07/04/2024 COMP. METAB OLIC PANEL (14) calcium 9.9 mg/dL 8.7-10 .2 Not Available [facility] ([facility]) [address] [place], [address], 07/04/2024 08:30:44 07/04/19 25 07/04/2024 COMP. METAB OLIC PANEL (14) protein, total 7.6 g/dL 6.0-8. 5 Not Available [facility] ([facility]) [address] [place], [address], 07/04/2024 08:30:44 07/04/19 25 07/04/2024 COMP. METAB OLIC PANEL (14) albumin 5.1 g/dL 4.1-5. 1 Not Available [facility] ([facility]) [address] [place], [address], 07/04/2024 08:30:44 07/04/19 25 07/04/2024 COMP. METAB OLIC PANEL (14) globulin, total 2.5 g/dL 1.5-4. 5 Not Available [facility] ([facility]) [address] [place], [address], 07/04/2024 08:30:44 07/04/19 25 07/04/2024 COMP. METAB OLIC PANEL (14) bilirubin, total 0.7 mg/dL 0.0-1. 2 Not Available [facility] ([facility]) [address] [facility], [place], [address], 07/04/2024 08:30:44 07/04/19 25 07/04/2024 COMP. METAB OLIC PANEL (14) alkaline phosphatase 119 IU/L 44-121 Not Available [facility]) [address] [facility], [place], [address], 07/04/2024 08:30:44 07/04/19 25 07/04/2024 COMP. METAB OLIC PANEL (14) AST (SGOT) 35 IU/L 0-40 Not Available [facility] ([facility]) [address] [facility], [place], [address], 07/04/2024 08:30:44 07/04/19 25 07/04/2024 COMP. METAB OLIC PANEL (14) ALT (SGPT) 51 IU/L 0-44 above high normal Not Available [facility] ([facility]) [address] [facility], [place], [address], 07/04/2024 08:30:44 07/04/19 25 07/04/2024 CBC WITH DIFFE RENTI AL/PL ATELE T WBC 6.1 x10e3 /uL 3.4-10 .8 Not Available [facility] ([facility]) [address] [place], [address], 07/04/2024 08:30:45 07/04/19 25 07/04/2024 CBC WITH DIFFE RENTI AL/PL ATELE T RBC 5.73 x10e6 /uL 4.14-5 .80 Not Available [facility] ([facility]) [address] [place], [address], 07/04/2024 08:30:45 07/04/19 25 07/04/2024 CBC WITH DIFFE RENTI AL/PL ATELE T hemoglobin 17.2 g/dL 13.0-1 7.7 Not Available [facility] ([facility]) [address] [place], [address], 07/04/2024 08:30:45 07/04/19 25 07/04/2024 CBC WITH DIFFE RENTI AL/PL ATELE T hematocrit 50.8 % 37.5-5 1.0 Not Available [facility] ([facility]) [address] [place], [address], 07/04/2024 08:30:45 07/04/19 25 07/04/2024 CBC WITH DIFFE RENTI AL/PL ATELE T MCV 89 fL 79-97 Not Available [facility] ([facility]) [address] [facility], [place], [address], 07/04/2024 08:30:45 07/04/19 25 07/04/2024 CBC WITH DIFFE RENTI AL/PL ATELE T MCH 30.0 pg 26.6-3 3.0 Not Available [facility] ([facility]) [address] [place], [address], 07/04/2024 08:30:45 07/04/19 25 07/04/2024 CBC WITH DIFFE RENTI AL/PL ATELE T MCHC 33.9 g/dL 31.5-3 5.7 Not Available [facility] ([facility]) [address] [place], [address], 07/04/2024 08:30:45 07/04/19 25 07/04/2024 CBC WITH DIFFE RENTI AL/PL ATELE T RDW 13.5 % 11.6-1 5.4 Not Available [facility] ([facility]) [address] [place], [address], 07/04/2024 08:30:45 07/04/19 25 07/04/2024 CBC WITH DIFFE RENTI AL/PL ATELE T platelets 206 x10e3 /uL 150-45 0 Not Available [facility] ([facility]) [address] [place], [address], 07/04/2024 08:30:45 07/04/19 25 07/04/2024 CBC WITH DIFFE RENTI AL/PL ATELE T neutrophils 71 % notest ab. Not Available [facility] ([facility]) [address] [place], [address], 07/04/2024 08:30:45 07/04/19 25 07/04/2024 CBC WITH DIFFE RENTI AL/PL ATELE T lymphs 19 % notest ab. Not Available [facility] ([facility]) [address] [place], [address], 07/04/2024 08:30:45 07/04/19 25 07/04/2024 CBC WITH DIFFE RENTI AL/PL ATELE T monocytes 8 % notest ab. Not Available [facility] ([facility]) [address] [facility], [place], [address], 07/04/2024 08:30:45 07/04/19 25 07/04/2024 CBC WITH DIFFE RENTI AL/PL ATELE T eos 2 % notest ab. Not Available [facility] ([facility]) [address] [place], [address], 07/04/2024 08:30:45 07/04/19 25 07/04/2024 CBC WITH DIFFE RENTI AL/PL ATELE T basos 0 % notest ab. Not Available [facility] ([facility]) [address] [place], [address], 07/04/2024 08:30:45 07/04/19 25 07/04/2024 CBC WITH DIFFE RENTI AL/PL ATELE T neutrophils (absolute) 4.3 x10e3 /uL 1.4-7. 0 Not Available [facility] ([facility]) [address] [place], [address], 07/04/2024 08:30:45 07/04/19 25 07/04/2024 CBC WITH DIFFE RENTI AL/PL ATELE T lymphs (absolute) 1.1 x10e3 /uL 0.7-3. 1 Not Available [facility] ([facility]) [address] [facility], [place], [address], 07/04/2024 08:30:45 07/04/19 25 07/04/2024 CBC WITH DIFFE RENTI AL/PL ATELE T monocytes(ab solute) 0.5 x10e3 /uL 0.1-0. 9 Not Available [facility] ([facility]) [address] [facility], [place], [address], 07/04/2024 08:30:45 07/04/19 25 07/04/2024 CBC WITH DIFFE RENTI AL/PL ATELE T eos (absolute) 0.1 x10e3 /uL 0.0-0. 4 Not Available [facility] ([facility]) [address] [facility], [place], [address], 07/04/2024 08:30:45 07/04/19 25 07/04/2024 CBC WITH DIFFE RENTI AL/PL ATELE T baso (absolute) 0.0 x10e3 /uL 0.0-0. 2 Not Available [facility] ([facility]) [address] [facility], [place], [address], 07/04/2024 08:30:45 07/04/19 25 07/04/2024 CBC WITH DIFFE RENTI AL/PL ATELE T immature granulocytes 0 % notest ab. Not Available [facility] ([facility]) [address] [place], [address], 07/04/2024 08:30:45 07/04/19 25 07/04/2024 CBC WITH DIFFE RENTI AL/PL ATELE T immature grans (abs) 0.0 x10e3 /uL 0.0-0. 1 Not Available [facility] ([facility]) [address] [facility], [place], [address], 07/04/2024 08:30:45 07/08/1907/08/2024 PT AND PTT INR 3.6 0.9-1. 2 above high normal Refer ence inter rian is for non-a ntico agula cindy patie nts. Sugge sted INR thera peuti c range for Vitam in K antag onist thera py: Stand alexander Dose (mode rate inten sity thera peuti c range ): 2.0 - 3.0 Highe r inten sity thera peuti c range 2.5 - 3.5 Not Available [facility] ([facility]) [address] [facility], [place], [address], 07/08/2024 08:28:57 07/08/1907/08/2024 PT AND PTT prothrombin time 35.5 sec 9.1-12 .0 above high normal Not Available [facility] ([facility]) [address] [facility], [place], [address], 07/08/2024 08:28:57 07/08/1907/08/2024 PT AND PTT APTT 52 sec 24-33 above high normal This test has not been valid ated for monit ori unfra ction ated hepar in thera py. aPTT- based thera peuti c range s for unfra ction ated hepar in thera py have not been estab dae xie For gener al guide lines on Hepar in monit oring , refer to the [facility] Krissy bales of [place] rodrí[facility]. Not Available [facility] ([facility]) [address] [facility], [place], [address], 07/08/2024 08:28:57 Result Notes None recorded. Problems Name Problem SNOMED Code Status Onset Date Resolution Date Notes Provider Name and Address Organization Details Recorded Time History of mechanical heart valve replacement 8513810550948 9 Active 2019 DARYL PYLE Attn: Accountin g,[address] [facility], [place], [address], [place] [facility] 0 10:32:14 Essential hypertensio n 03124875 Active 2019 DARYL PYLE Attn: Accountin g,[address] [facility], [place], [address], [place] [facility] 0 10:34:22 Smoker 88759755 Active 2022 DARYL PYLE Attn: Accountin g,[address] [facility], [place], [address], [place] [facility] 3 15:07:05 Obesity 455977921 Active 2022 DARYL PYLE Attn: Accountin g,[address] [facility], [place], [address], [place] [facility] 3 15:07:06 Paranoid delusion 287617194 Active 2022 DARYL PYLE Attn: Accountin g,[address] [facility], [place], [address], [place] [facility] 3 15:07:08 Anxiety 15441402 Active 2022 DARYL PYLE Attn: Accountin g,[address] [facility], [place], [address], [place] [facility] 3 15:07:09 Myocardial infarction 79016216 Active 2022 Luiza Lopez MA null, [place] - [facility] 3 16:59:52 Acute non-ST segment elevation myocardial infarction 894719812 Active 2022 DARYL PYLE Attn: Accountin g,[address] [facility], [place], [address], [place] [facility] 3 09:28:08 Warfarin monitoring status 878167275 Active 2022 DARYL PYLE Attn: Accountin g,[address] [facility], [place], [address], [place] [facility] 3 15:34:41 Morbid obesity 542119121 Active 2022 DARYL PYLE Attn: Accountin g,[address] [facility], [place], [address], [place] [facility] 3 15:34:41 Posttraumat ic stress disorder 32173989 Active 2023 ZAIRA JEWELL Attn: Accountin g,[address] [facility], [place], [address], [place] [facility] 4 18:28:15 Depressive disorder 64769385 Active 2023 ZAIRA JEWELL Attn: Accountin g,[address] [facility], [place], [address], [place] [facility] 4 18:28:17 Long-term drug therapy Active 2023 ZAIRA JEWELL Attn: Accountin g,[address] [facility], [place], [address], [place] [facility] 4 18:28:23 Generalized anxiety disorder 89201792 Active 2023 ZAIRA JEWELL Attn: Accountin g,[address] [facility], [place], [address], [place] [facility] 4 18:28:24 Auditory hallucinati ons 87857971 Active 2023 ZAIRA JEWELL Attn: Accountin g,[address] [facility], [place], [address], [place] [facility] 4 22:33:06 Wheezing 86271672 Active 2023 DARYL PYLE Attn: Accountin g,[address] [facility], [place], [address], [place] [facility] 4 13:06:19 Sleep apnea 41093347 Active 2024 DARYL PYLE Attn: Tawnya raymond,[address] [facility], [place], [address], [facility] - [facility] 5 19:40:45 Notes:1998 surgery. born wit h bad aortic valve -bicuspid. Problem Notes None recorded. Procedures Surgical History Date Name Laterality Status Provider Name and Address Organization Details Recorded Time 11/30/19 Flexible Laryngoscopy completed Sanya Enriquez MD [address] [place], [address], [facility] - [facility] 11/29/2020 11:11:36 Imaging Results None recorded. Procedure Notes None recorded. Medical Equipment None Reported. Allergies Allergen ID Allergen Name Allergen Category Reaction Reaction Severity Criticality Documentation Date Start Date Code Code System Note Provider Name and Address Organization Details Recorded Time 241647 vitamin K2 medicatio n Not available Not available Not available 12/13/2020 64345 RxNorm Noelle Edouard [facility], [place] - [facility] 12:32:08 Medications Name Sig Start Date Stop Date Status Note LastModified by Organization Details LastModified Time Prescriptio n - Prior Authorizati on Request active Not Available Not Available N ot Available amoxicillin 500 mg capsule TAKE 4 CAPSULES BY MOUTH ONCE DAILY FOR 1 DAY 11/21 completed Not Available Not Available Not Available buspirone 5 mg tablet TAKE 1 TABLET BY MOUTH TWICE DAILY DIRECTED FOR ANXIETY 06/05 completed Not Available Not Available Not Available BD Alcohol Swabs USE 1 SWAB EXTERNALL Y ONCE DAILY active Not Available Not Available No t Available atorvastati n 80 mg tablet TAKE 1 TABLET BY MOUTH ONCE DAILY active Not Available Not Available No t Available atorvastati n 20 mg tablet TAKE 1 TABLET BY MOUTH ONCE DAILY 02/14 completed Not Available Not Available Not Available albuterol sulfate 2.5 mg/3 mL (0.083 %) solution for nebulizatio n USE 1 VIAL IN NEBULIZER EVERY 4 HOURS NEEDED FOR SHORTNESS OF BREATH FOR WHEEZING 12/02 completed Not Available Not Available Not Available ibuprofen 800 mg tablet 02/14 completed Not Available Not Available Not Available Lidocaine Viscous 2 % mucosal solution APPLY 1 APPLICATI ON OF THE SOLUTION THREE TIMES DAILY TO THE MUCOSAL AREA NEEDED FOR PAIN. APPLY WITH A COTTON SWAB TO SITE OF PAIN. 02/14 completed Not Available Not Available Not Available hydrocodone 5 mg-acetamin ophen 325 mg tablet 1 {tbl} every 6 hours by oral route. 06/21 completed Not Available Not Available Not Available prednisone 20 mg tablet TAKE 2 TABLETS BY MOUTH ONCE DAILY FOR 4 DAYS 07/17 completed Not Available Not Available Not Available isosorbide mononitrate ER 30 mg tablet,exte nded release 24 hr Take 1 tablet by mouth once daily 2024 active Not Available Not Available Not Avai lable sertraline 100 mg tablet Take 2 tablets every day by oral route as directed for 90 days. 2024 active Not Available Not Available Not Avai lable clindamycin HCl 150 mg capsule TAKE 3 CAPSULES BY MOUTH THREE TIMES DAILY FOR 7 DAYS 02/14 completed Not Available Not Available Not Available olanzapine 10 mg tablet TAKE 1 TABLET BY MOUTH ONCE DAILY AT BEDTIME 03/27 completed Not Available Not Available Not Available hydralazine 25 mg tablet TAKE 1 TABLET BY MOUTH THREE TIMES DAILY 02/14 completed Not Available Not Available Not Available clopidogrel 75 mg tablet TAKE 1 TABLET BY MOUTH ONCE DAILY 06/05 completed Not Available Not Available Not Available amlodipine 5 mg tablet TAKE 1 TABLET BY MOUTH ONCE DAILY 02/14 completed Not Available Not Available Not Available aspirin 81 mg tablet,cruz yed release TAKE 1 TABLET BY MOUTH ONCE DAILY 03/22 completed Not Available Not Available Not Available doxycycline monohydrate 100 mg tablet TAKE 1 TABLET BY MOUTH TWICE DAILY FOR 7 DAYS 08/14 completed Not Available Not Available Not Available spironolact one 25 mg tablet TAKE 1 TABLET BY MOUTH ONCE DAILY active Not Available Not Available No t Available amoxicillin 500 mg tablet take [address] to the dentist's office 08/06 completed Not Available Not Available Not Available carvedilol 3.125 mg tablet Take 1 tablet by mouth twice daily 2024 active Not Available Not Available Not Avai lable warfarin 3 mg tablet Take 3 mg by oral route. 11/04 completed Not Available Not Available Not Available pantoprazol e 20 mg tablet,cruz yed release TAKE 1 TABLET BY MOUTH IN THE MORNING 06/21 completed Not Available Not Available Not Available propranolol 40 mg tablet TAKE 1 TABLET BY MOUTH TWICE DAILY 02/14 completed Not Available Not Available Not Available amoxicillin 875 mg tablet TAKE 1 TABLET BY MOUTH EVERY 12 HOURS 09/01 completed Not Available Not Available Not Available warfarin 6 mg tablet Take 1 tablet by mouth once daily 07/17 completed Not Available Not Available Not Available potassium chloride ER 20 mEq tablet,exte nded release(par t/cryst) TAKE 1 TABLET BY MOUTH ONCE DAILY active Not Available Not Available No t Available famotidine 20 mg tablet Take 1 tablet by mouth twice daily 2024 active Not Available Not Available Not Avai lable cephalexin 500 mg capsule TAKE 1 CAPSULE BY MOUTH 4 TIMES DAILY FOR 10 DAYS 02/14 completed Not Available Not Available Not Available pantoprazol e 40 mg tablet,cruz yed release TAKE 1 TABLET BY MOUTH ONCE DAILY 06/21 completed Not Available Not Available Not Available lisinopril 10 mg tablet Take 10 mg by oral route. 10/15 completed Not Available Not Available Not Available warfarin 5 mg tablet TAKE 1 TABLET BY MOUTH IN THE EVENING active Not Available Not Available No t Available losartan 25 mg tablet Take 1 tablet by mouth once daily for 90 days 2024 active Not Available Not Available Not Avai lable nicotine 21 mg/24 hr daily transdermal patch APPLY 1 PATCH TOPICALLY ONCE DAILY 08/09 completed Not Available Not Available Not Available nitroglycer in 0.4 mg sublingual tablet 0.4 mg by sublingua l route. 2022 active Not Available Not Available Not Avai lable omeprazole 20 mg capsule,del ayed release Take 1 capsule every day by oral route for 90 days. 12/13 completed Not Available Not Available Not Available amoxicillin 250 mg capsule 06/21 completed Not Available Not Available Not Available olanzapine 15 mg tablet TAKE 1 TABLET BY MOUTH ONCE DAILY 08/15 completed Not Available Not Available Not Available furosemide 20 mg tablet TAKE 1 TABLET BY MOUTH ONCE DAILY active Not Available Not Available No t Available albuterol sulfate HFA 90 mcg/actuati on aerosol inhaler INHALE 2 PUFFS BY MOUTH EVERY 4 TO 6 HOURS NEEDED active Not Available Not Available No t Available sertraline 50 mg tablet TAKE 1 TABLET BY MOUTH ONCE DAILY 11/30 completed Not Available Not Available Not Available amoxicillin 875 mg-potassiu m clavulanate 125 mg tablet TAKE 1 TABLET BY MOUTH EVERY 12 HOURS FOR 7 DAYS 02/14 completed Not Available Not Available Not Available oxycodone 5 mg tablet 06/21 completed Not Available Not Available Not Available enoxaparin 80 mg/0.8 mL subcutaneou s syringe INJECT 80 MG UNDER THE SKIN Q 12 HOURS FOR 5 DAYS 03/22 completed Not Available Not Available Not Available escitalopra m 10 mg tablet TAKE 1 TABLET BY MOUTH ONCE DAILY 05/14 completed Not Available Not Available Not Available aripiprazol e 10 mg tablet TAKE 1 TABLET BY MOUTH ONCE DAILY 11/04 completed Not Available Not Available Not Available aripiprazol e 15 mg tablet TAKE 1 TABLET BY MOUTH ONCE DAILY DIRECTED 11/04 completed Not Available Not Available Not Available aripiprazol e 20 mg tablet TAKE 1 TABLET BY MOUTH ONCE DAILY DIRECTED 06/05 completed Not Available Not Available Not Available aripiprazol e 5 mg tablet TAKE 1 TABLET BY MOUTH ONCE DAILY DIRECTED IN ADDITION TO THE CURRENT ABILIFY 5 MG 06/05 completed Not Available Not Available Not Available Victoza 2-Harman 0.6 mg/0.1 mL (18 mg/3 mL) subcutaneou s pen injector INJECT 1.2 MG SUBCUTANE OUSLY ONCE DAILY 02/14 completed Not Available Not Available Not Available potassium chloride ER 20 mEq tablet,exte nded release TAKE 1 TABLET BY MOUTH ONCE DAILY 06/05 completed Not Available Not Available Not Available Trintellix 10 mg tablet Take by oral route for 30 days. 12/02 completed Not Available Not Available Not Available Lybalvi 5 mg-10 mg tablet active Not Available Not Available Not Available Vitals Date Recorded Body height Body mass index (BMI) Body weight Oxygen saturation Oxygen saturation in Arterial blood by Pulse oximetry Respiratory rate Heart rate Systolic blood pressure Diastolic blood pressure Provider Name and Address Organization Details Last Updated DateTime 4 170.18 cm 40.7 kg/m2 053542. 02 g 96 % 96 % 17 /min 79 /min 135 mm[Hg] 85 mm[Hg] Evie Del Rio MA [facility] 4 16:11:38 Date Recorded Body height Body mass index (BMI) Body weight Oxygen saturation Oxygen saturation in Arterial blood by Pulse oximetry Heart rate Respiratory rate Systolic blood pressure Diastolic blood pressure Provider Name and Address Organization Details Last Updated DateTime 4 170.18 cm 41 kg/m2 422942. 2 g 96 % 96 % 83 /min 18 /min 119 mm[Hg] 73 mm[Hg] Evie Del Rio MA [facility] 4 16:01:09 Date Recorded Body height Body mass index (BMI) Body weight Oxygen saturation Oxygen saturation in Arterial blood by Pulse oximetry Heart rate Body temperature Systolic blood pressure Diastolic blood pressure Provider Name and Address Organization Details Last Updated DateTime 4 170.18 cm 40.9 kg/m2 249629. 97 g 96 % 96 % 69 /min 98 [degF] 121 mm[Hg] 67 mm[Hg] Heather Olson MA [facility] 4 16:04:37 Date Recorded Body height Body mass index (BMI) Body weight Oxygen saturation Oxygen saturation in Arterial blood by Pulse oximetry Heart rate Body temperature Systolic blood pressure Diastolic blood pressure Provider Name and Address Organization Details Last Updated DateTime 4 170.18 cm 40.7 kg/m2 342924. 02 g 95 % 95 % 67 /min 98 [degF] 135 mm[Hg] 83 mm[Hg] Heather Olson MA [facility] 4 16:22:58 Date Recorded Body height Body mass index (BMI) Body weight Heart rate Oxygen saturation Oxygen saturation in Arterial blood by Pulse oximetry Systolic blood pressure Diastolic blood pressure Provider Name and Address Organization Details Last Updated DateTime 5 170.18 cm 37 kg/m2 250914. 8 g 83 /min 97 % 97 % 122 mm[Hg] 87 mm[Hg] Luiza Lopez MA [facility] 5 10:30:08 Social History Question Answer Notes LastModified by Organizat ion Details LastModified Time Tobacco Smoking Status Current Every Day Smoker Marijuana-Oc casionally YUDY Richey, [facility] 05/14/2020 10:37:13 What Is Your Level Of Alcohol Consumption? Occasional Information not available 11/05/2023 What Is Your Level Of Caffeine Consumption? Moderate Information not available 11/13/2019 How Much Tobacco Do You Chew? None Information not available 05/14/2020 In The 14 Days Before Symptom Onset, Have You Had Close Contact With A Laboratory-confi rmed COVID-19 While That Case Was Ill? No Information not available 08/06/2020 In The 14 Days Before Symptom Onset, Have You Had Close Contact With A Person Who Is Under Investigation For COVID-19 While That Person Was Ill? No Information not available 08/06/2020 Have You Been To An Area Known To Be High Risk For COVID-19? No Information not available 08/06/2020 Which Illicit Or Recreational Drugs Have You Used? N/a Information not available 11/13/2019 Do You Or Have You Ever Used E-cigarettes Or Vape? 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 Information not available 11/13/2019 Hard Of Hearing Or Deaf In One Or Both Ears? No Information not available 11/13/2019 Legally Blind In One Or Both Eyes? No Information not available 11/13/2019 What Was The Date Of Your Most Recent Tobacco Screening? 06/05/2024 Information not available 06/05/2024 How Many Children Do You Have? 2 Information not available 11/13/2019 What Is Your Current Pack Years? 10-19packyear s Information not available 11/05/2023 Smoke Alarm In Home Yes Information not available 11/13/2019 At What Age Did You Start Smoking Tobacco? 24 Information not available 05/14/2020 Are You Passively Exposed To Smoke? Yes Information not available 11/13/2019 Do You Or Have You Ever Used Smokeless Tobacco? Never Used Smokeless Tobacco Information not available 11/13/2019 How Much Tobacco Do You Smoke? 0.5 PPD Information not available 05/14/2020 General Stress Level Medium Information not available 03/22/2020 Do You Use Any Illicit Or Recreational Drugs? Yes Marijuana Information not available 11/05/2023 Has Tobacco Cessation Counseling Been Provided? Yes Information not available 02/14/2023 On What Date Was Tobacco Cessation Counseling Provided? 06/05/2024 Information not available 06/05/2024 How Many Years Have You Smoked Tobacco? 10 Information not available 05/14/2020 Do You Or Have You Ever Used Any Other Forms Of Tobacco Or Nicotine? No Information not available 11/05/2023 Sex: Male Functional Status Question Answer Note LastModified by Organization D etails LastModified Time What is your exercise level? Moderate Information not available 11/13/2019 Mental Status None recorded. Family History Relationship Description Onset Age of this Age Resolved Age Notes LastModified by Organization Details LastModified Time Father No current problems or disability Not available 09/16 14:18:20 Mother No current problems or disability Not available 09/16 14:18:20 Medical History Condition Response Coronary Artery Disease N Other N Atrial Fibrillation N High Blood Pressure N Thyroid Disease N Depression N COPD N Blood Clots N Congenital Heart Disease N Peripheral Arterial Disease N Pacemaker N TIA N Genitourinary Disease N Gastrointestinal Disease N Deep Vein Thrombosis N Anxiety Disorder N Muscle, Joint, or Bone Problems N Blood Clot N Acid Reflux (GERD) N Cancer N Stroke N Carotid Disease N High Cholesterol N Aortic Aneurysm N Neurologic Disorder N Liver Disease N Valvular Abnormalities Y Arrhythmia N Headaches N Kidney Disease N Thyroid Problems N Kidney or Bladder Problems N GI Problems N Skin Problems N Anemia N Heart Attack (ND) N Diabetes N Cardiomyopathy N Seizures/Epilepsy N Myocardial Infarction N Congestive Heart Failure (CHF) N Valvular Heart Disease Y Hyperlipidemia N Asthma N Allergies N Atrial Flutter N Sleep Apnea N Sleep Disorder N GERD/Reflux N Warfarin Management Y Hepatitis N Heart Disease N Hypertension N Heart Failure Y Osteoporosis N Hematologic Disease N Immunizations Vaccine Type Date Status Note Provider Nam e and Address Organization Details Recorded Time COVID-19, mRNA, LNP-S, PF, 100 mcg/0.5mL dose or 50 mcg/0.25mL dose 07/27/2020 completed Not Available [facility] 4 00:58:16 COVID-19, mRNA, LNP-S, PF, 100 mcg/0.5mL dose or 50 mcg/0.25mL dose 08/19/2020 completed Not Available [facility] 4 00:58:16 COVID-19, mRNA, LNP-S, PF, 30 mcg/0.3 mL dose 07/27/2020 completed Not Available [facility] 4 00:58:16 COVID-19, mRNA, LNP-S, PF, 30 mcg/0.3 mL dose 08/19/2020 completed Not Available [facility] 4 00:58:16 COVID-19, mRNA, LNP-S, PF, 30 mcg/0.3 mL dose, jasmyne-sucrose 05/06/2021 completed YUDY [place], [place] [facility] 08/16/2023 11:33:13 Tdap 05/06/2021 completed YUD[place] [facility] 08/16/2023 11:33:13 Tdap 08/14/2022 completed DARYL PYLE Attn: Accounting,[address] [place], [address], [facility] 08/14/2022 15:03:36 Past Encounters Encounter ID Performer Location Encounter Start Date Encounter Closed Date Diagnosis/Indication Diagnosis SNOMED-CT Code Diagnosis ICD10 Code Diagnosis Note [id number] DARYL P[facility] [address] [place] [address] 11/13/2019 09:27:34 11/14/2019 08:29:32 Warfarin monitoring status [id number] Z51.81 last INR was 1.2 two weeks ago.Not in range. will recheck. - continue 5mg daily warfarin Essential hypertension 48993160 I10 Patient has been told he has high blood pressure but has not checked it in a long time. He eats mostly grilled foods, exercises (jogs), smokes 1ppw. Advised to check BP regularly with a goal of <140/90, if BP consistent ly >140/90, advised to contact clinic Discussed DASH diet Advised weight loss and diet is best way to control BP Advised 30 minutes of exercise minimum daily Advised tobacco, alcohol, caffeine all increase BP Advised goal for BP is <140/90- stop smoking- check BP at home- f/u next week for BP check History of mechanical heart valve replacement [id number] 9109 Z95.2 Patient was underwent surgery in 1998 for a bicuspid aortic heart valve. No complicati ons from surgery. He is on coumadin. Last INR range was 2 weeks ago and was 1.2. He was told to double up on warfaring for two days. Will recheck. He needs new cardiologi st. - goal is 2.5-3.5 INR- recehck INR- He needs warfarin refill- cardiology referral Depressive disorder 4036 4382 F32.9 Patient with trouble sleeping daily (2-3 hours of sleep per night), fatigue, anhedonia, irritabili ty, depressed mood, anxiety for the last few months. symptoms exacerbate d by loss of baby and COVID. Has taken xanax in the past. Denies SI/HI. On phone patient sounds depressed, speech is slow. discussed everyday medication . -starting on lexapro which seems to have less effect on bleeding and will recehck INR withing the week.- advised counseling -Patient was educated on his prescribed medication s, rationale for medication s, dosing indication s, adverse reactions, black box warning, dosing indication s, SE and the risks and benefits. -Call center with questions/ concerns. Go to ER or call 911 for crisis (e.g., suicidal behaviors, suicidal ideations, intent or plan emerge). Additional ly, patient has suicide hotline #. - f/u one month - call with questions [phone] D[facility]L P[facility] [address] [place] [address] 03/22/2020 11:53:24 03/23/2020 14:49:13 Warfarin monitoring status [id number] Z51.81 last INR was 1.2. He did stop taking warfarin weeks before hospital admission and has been restarted on warfarin at hospital as well as enoxaparin . He was supposed to stop taking enoxaparin 5 days after starting but he is still taking it. Will follow hospital discharge orders and stop enoxaparin shots. Continue warfarin. Checking INR totday - continue 5mg daily warfarin History of mechanical heart valve replacement [id number] 9109 Z95.2 Patient was underwent surgery in 1998 for a bicuspid aortic heart valve. No complicati ons from surgery. He is on coumadin and was not told when to stop taking it. Checking INR. - goal is 2.5-3.5 INR- recehck INR- He needs warfarin refill- cardiology referral, given number today Essential hypertension 12657461 I10 BP high at 154/100 and 150/98 on repeat, not wnl. He states he drank 3 cups of coffee this morning to get going. In hospital Patient BP was 120's/90's with elevated pulse. He eats mostly grilled foods, exercises (jogs), smokes 1/2 ppd. - f/u or sun for in-clinic BP Advised to check BP regularly with a goal of <140/90, if BP consistent ly >140/90, advised to contact clinic Discussed DASH diet Advised weight loss and diet is best way to control BP Advised 30 minutes of exercise minimum daily Advised tobacco, alcohol, caffeine all increase BP - stop smoking Depressive disorder 4730 9545 F32.9 Patient with trouble sleeping daily (2-3 hours of sleep per night), fatigue, anhedonia, irritabili ty, depressed mood, anxiety for the last few months. symptoms exacerbate d by loss of baby and COVID. Has taken xanax in the past. Denies SI/HI. On phone patient sounds depressed, speech is slow. We did start lexapro in October but he stopped taking once he ran out and states he did not notice much difference . He did not f/u in one month. - advised counseling -Patient was educated on his prescribed medication s, rationale for medication s, dosing indication s, adverse reactions, black box warning, dosing indication s, SE and the risks and benefits. -Call center with questions/ concerns. Go to ER or call 911 for crisis (e.g., suicidal behaviors, suicidal ideations, intent or plan emerge). Additional ly, patient has suicide hotline #. - f/u one month - call with questions Paranoid delusion [phone] [id number] Patient with intermitte nt meth use x one year. He was admitted to hospital after delusions and paranoid ideology for weeks. He does admit to snorting meth about 4-7 days prior to admission. Per hospital notes mom states he has had traumatic life. He had been having thought of his uncle putting things in his tea and his hair gel. He felt they could hear his thoughts and heard voices in his head telling him to kill himself. He currently has no SI/HI. Does smoke marijuana but denies snorting meth recently. He still has break through anxiety and is still not sleeping. I will start antidepres corky/anxie ty medication once I receive labs due to risk of increased bleeding on warfarin and enoxaparin . he is to stop enoxaparin today. On exam : speech is clear, fluid, linear. eye contact is appropriat e. He is shaking his legs and fidgeting with his thumbs. He seems to have good insight. ddx: drug-relat ed psychosis, paranoid disorder, depression with psychotic features, schitzophr enia, paranoid delusional disorder, brief psychotic disorder. 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 He was admitted to hospital after using meth 2-3 days before hand for delusions and paranoid ideology. [id number] DARYL PYLE [facility] [address] [place] [address] 05/14/2020 08:59:16 05/14/2020 16:01:42 Paranoid delusion [id number] F22 Patient with intermitte nt meth use x one year. He was admitted to hospital after delusions and paranoid ideology for weeks. He does admit to snorting meth about 4-7 days prior to admission. Per hospital notes mom states he has had traumatic life. He had been having thought of his uncle putting things in his tea and his hair gel. He felt they could hear his thoughts and heard voices in his head telling him to kill himself. He currently has no SI/HI. Does smoke marijuana but denies snorting meth recently. He still has break through anxiety and is still not sleeping. I will start antidepres corky/anxie ty medication once I receive labs due to risk of increased bleeding on warfarin and enoxaparin . he is to stop enoxaparin today. On exam : speech is clear, fluid, linear. eye contact is appropriat e. He is shaking his legs and fidgeting with his thumbs. He seems to have good insight. ddx: drug-relat ed psychosis, paranoid disorder, depression with psychotic features, schitzophr enia, paranoid delusional disorder, brief psychotic disorder. - psychiatry - f/u two weeks- ER if symptoms develop again of HI/SI, delusions Essential hypertension 40075727 I10 BP high at 154/100 and 150/98 on repeat, not wnl. He states he drank 3 cups of coffee this morning to get going. In hospital Patient BP was 120's/90's with elevated pulse. He eats mostly grilled foods, exercises (jogs), smokes 1/2 ppd. - f/u thurs or fri for in-clinic BP Advised to check BP regularly with a goal of <140/90, if BP consistent ly >140/90, advised to contact clinic Discussed DASH diet Advised weight loss and diet is best way to control BP Advised 30 minutes of exercise minimum daily Advised tobacco, alcohol, caffeine all increase BP - stop smoking History of mechanical heart valve replacement [id number] 9109 Z95.2 Patient was underwent surgery in 1998 for a bicuspid aortic heart valve. No complicati ons from surgery. He is on coumadin and was not told when to stop taking it. Checking INR. - goal is 2.5-3.5 INR- recehck INR- He needs warfarin refill- cardiology referral, given number today Warfarin m onitoring status [id number] Z51.81 last INR was 1.2. He did stop taking warfarin weeks before hospital admission and has been restarted on warfarin at hospital as well as enoxaparin . He was supposed to stop taking enoxaparin 5 days after starting but he is still taking it. Will follow hospital discharge orders and stop enoxaparin shots. Continue warfarin. Checking INR today - continue 5mg daily warfarin Depressive disorder 7452 4142 F32.9 Patient with trouble sleeping daily (2-3 hours of sleep per night), fatigue, anhedonia, irritabili ty, depressed mood, anxiety for the last few months. symptoms exacerbate d by loss of baby and COVID. Has taken xanax in the past. Denies SI/HI. On phone patient sounds depressed, speech is slow. We did start lexapro in October but he stopped taking once he ran out and states he did not notice much difference . He did not f/u in one month. - advised counseling -Patient was educated on his prescribed medication s, rationale for medication s, dosing indication s, adverse reactions, black box warning, dosing indication s, SE and the risks and benefits. -Call center with questions/ concerns. Go to ER or call 911 for crisis (e.g., suicidal behaviors, suicidal ideations, intent or plan emerge). Additional ly, patient has suicide hotline #. - f/u one month - call with questions Harmful pa ttern of use of methamphetamine [phone] F15.10 Patient with meth use x one year. He was admitted to hospital after using meth 2-3 days before hand for delusions and paranoid ideology. Antibiotic prophylaxis indicated [id number] Z78.9 Patietn undergoing tooth procedure on May 22. He has mechanical heart valve and will take prophylact ic abx 30-60 min before procedure [id number] DARYL PYLE [facility] [address] [place] [address] 07/12/2020 09:42:16 07/12/2020 10:34:40 [id number] DARYL PYLE [facility] [address] [place] [address] 08/06/2020 08:01:13 08/10/2020 07:13:16 Paranoid delusion [id number] F22 Patient with intermitte nt meth use x one year. He was admitted to hospital after delusions and paranoid ideology for weeks. He does admit to snorting meth about 4-7 days prior to admission. Per hospital notes mom states he has had traumatic life. He had been having thought of his uncle putting things in his tea and his hair gel. He felt they could hear his thoughts and heard voices in his head telling him to kill himself. He currently has no SI/HI. Does smoke marijuana but denies snorting meth recently. He still has break through anxiety and is still not sleeping. I will start antidepres corky/anxie ty medication once I receive labs due to risk of increased bleeding on warfarin and enoxaparin . he is to stop enoxaparin today. On exam : speech is clear, fluid, linear. eye contact is appropriat e. He is shaking his legs and fidgeting with his thumbs. He seems to have good insight. ddx: drug-relat ed psychosis, paranoid disorder, depression with psychotic features, schitzophr enia, paranoid delusional disorder, brief psychotic disorder. - psychiatry - f/u two weeks - ER if symptoms develop again of HI/SI, delusions Essential hypertension 50290978 I10 BP high at 154/100 and 150/98 on repeat, not wnl. He states he drank 3 cups of coffee this morning to get going. In hospital Patient BP was 120's/90's with elevated pulse. He eats mostly grilled foods, exercises (jogs), smokes 1/2 ppd. - f/u or sun for in-clinic BP Advised to check BP regularly with a goal of <140/90, if BP consistent ly >140/90, advised to contact clinic Discussed DASH diet Advised weight loss and diet is best way to control BP Advised 30 minutes of exercise minimum daily Advised tobacco, alcohol, caffeine all increase BP - stop smoking History of mechanical heart valve replacement [id number] 9109 Z95.2 Patient was underwent surgery in 1998 for a bicuspid aortic heart valve. No complicati ons from surgery. He is on coumadin and was not told when to stop taking it. Checking INR. - goal is 2.5-3.5 INR- recehck INR- He needs warfarin refill- cardiology referral, given number today Warfarin m onitoring status [id number] Z51.81 last INR was 2. needs new INR drawn in 2 weeks - continue 5mg daily warfarin Depressive disorder 9238 8676 F32.9 Patient with trouble sleeping daily (2-3 hours of sleep per night), fatigue, anhedonia, irritabili ty, depressed mood, anxiety for the last few months. symptoms exacerbate d by loss of baby and COVID. Has taken xanax in the past. Denies SI/HI. On phone patient sounds depressed, speech is slow. We did start lexapro in October but he stopped taking once he ran out and states he did not notice much difference . He did not f/u in one month. - advised counseling -Patient was educated on his prescribed medication s, rationale for medication s, dosing indication s, adverse reactions, black box warning, dosing indication s, SE and the risks and benefits. -Call center with questions/ concerns. Go to ER or call 911 for crisis (e.g., suicidal behaviors, suicidal ideations, intent or plan emerge). Additional ly, patient has suicide hotline #[phone]. - f/u one month - call with questions Harmful pa ttern of use of methamphetamine [id number] F15.10 Patient with meth use x one year. He was admitted to hospital after using meth 2-3 days before hand for delusions and paranoid ideology. Antibiotic prophylaxis indicated [id number] Z78.9 patient undergoing tooth procedure on May 22. He has mechanical heart valve and will take prophylact ic abx 30-60 min before procedure [id number] Brien Wright MD [facility] [address] [place] [address] 08/09/2020 11:53:01 08/17/2020 09:34:14 Rectal polyp 67497339 K62.1 [id number] DARYL PYLE [facility] [address] [place] [address] 08/17/2020 09:10:15 08/17/2020 17:48:28 [id number] Fuad Piedra MD [facility] [address] [place] [address] 09/01/2020 15:26:34 09/14/2020 12:40:24 Bicuspid aortic valve [id number] Q23.1 S/P Aortic valve replacemen t with a mechanical prosthesis . Last INR was 1.5 on August 17. Instructed to take Coumadin 10 mg po x 2 days and recheck INR. Pt admits to forget his medicine sometimes. For the future, INR needs to be kept between 2.5 and 3.5. Will request an Echocardio gram to assess valve function. [id number] DARYL PYLE [facility] [address] [place] [address] 09/06/2020 09:41:14 09/06/2020 10:27:49 Adult health examination [id number] Z00.00 [id number] DARYL PYLE [facility] [address] [place] [address] 09/16/2020 14:04:15 10/08/2020 11:28:28 Warfarin monitoring status 324199739 Z51.81 last INR was 1.3, not wnl. states he forgot to take medication for a few days. needs new INR drawn. INR goal 2.5-3.5 - continue 5mg daily warfarin Abdominal pain 48926305 R10.9 Patient is having RUQ, LUQ and mid abdominal pain x 1 year. Pain has been wrosening. This is causing him to throw up in the mornings Cholesterol screening 27 5198118 Z13.220 Essential hypertension 43587079 I10 BP high at 154/100 and 150/98 on repeat, not wnl. He states he drank 3 cups of coffee this morning to get going. In hospital Patient BP was 120's/90's with elevated pulse. He eats mostly grilled foods, exercises (jogs), smokes 1/2 ppd. - f/u thurs or fri for in-clinic BP Advised to check BP regularly with a goal of <140/90, if BP consistent ly >140/90, advised to contact clinic Discussed DASH diet Advised weight loss and diet is best way to control BP Advised 30 minutes of exercise minimum daily Advised tobacco, alcohol, caffeine all increase BP - stop smoking [id number] Tan Tabor MD [facility] [address] [place] [address] 10/27/2020 15:17:05 11/17/2020 07:53:46 Thrombosed external hemorrhoids [id number] K64.5 Chronicall y thrombosed /engorged external hemorrhoid vs enlarged condyloma, in need of excision. fortunatel y it is well-pedun culated and on the anal skin rather than mucosa. Will schedule for EUA and excision JORGE LUIS. Spoke with cardiology , whom he is seeing today about the possibilit y of a lovenox bridge. If possible this would be preferable , with the patient skipping his lovenox the day of surgery only. If not possible, will perform the excision with a slightly increased but acceptable risk of postoperat emy bleeding. Will start patient on miralax BID postoperat ively. Discussed continued excellent local skin care/hygie ne to prevent skin breakdown. [id number] Fuad Piedra MD [facility] [address] [place] [address] 10/27/2020 15:30:47 11/01/2020 09:35:39 History of mechanical aortic valve replacement [id number] 40629 Z95.2 Rec. to perform surgery either without stopping coumadin or by D/C Coumadin and bridge with Lovenox 1 mg/KG SQ BID. Keep INR between 2.5 and 3.5Monthly PT/INR check Yearly F/U with Cardiology Essential hypertension 10586615 I10 Add Amlodipine 5 mg daily [id number] Say Arias MD [facility] [address] [place] [address] 11/26/2020 15:29:09 11/30/2020 10:13:26 Acquired subglottic stenosis 457032298 J38.[address] w/o contrast [id number] Sanya Enriquez MD [facility] [address] [place] [address] 11/29/2020 10:48:26 11/29/2020 11:42:31 Subglottic stenosis 28090311 J38.6 CT pending Deviated nasal septum 12 [id number] J34.2 [id number] Sanya Enriquez MD [facility] [address] [place] [address] 12/13/2020 12:19:28 12/13/2020 13:34:09 Subglottic stenosis 35336777 J38.6 CT pending [id number] Sanya Enriquez MD [facility] [address] [place] [address] 12/30/2020 10:15:11 01/01/2021 03:46:57 Subglottic stenosis [id number] J38.[address] normal [id number] [facility] [address] [place] [address] 06/21/2021 16:13:56 06/23/2021 09:04:35 Anxiety 07260973 F41.9 Patient states he is struggling with anxiety for the last few weeks. He is waking up multiple times per night and snacking. He feels anxious during the day and smoked more. Patient denies depression . He is working and it is going well.- increase sertraline - f/u one month Gastroesop hageal reflux disease 296366101 K21.9 Essential hypertension 31125051 I10 BP high at 154/100 and 150/98 on repeat, not wnl. He states he drank 3 cups of coffee this morning to get going. In hospital Patient BP was 120's/90's with elevated pulse. He eats mostly grilled foods, exercises (jogs), smokes 1/2 ppd. - f/u th or fri for in-clinic BP Advised to check BP regularly with a goal of <140/90, if BP consistent ly >140/90, advised to contact clinic Discussed DASH diet Advised weight loss and diet is best way to control BP Advised 30 minutes of exercise minimum daily Advised tobacco, alcohol, caffeine all increase BP - stop smoking Wheezing 59073830 R06.2 wheezing in the morning. has asthma as a child.- stop smoking- pft to establish lung function History of mechanical heart valve replacement [id number] 9109 Z95.2 Patient was underwent surgery in 1998 for a bicuspid aortic heart valve. No complicati ons from surgery. He takes coumadin daily. currently on 5mg daily. last INR in April was 1 before his haemorrhoi dectomy.- amox for dental procedure- goal is 2.5-3.5 INR - recehck INR - He needs warfarin refill - following cardio, needs notes Smoker 21286784 F17.200 smoking 1ppd, advised to cut back. He states his anxiety is causing him to smoke. Obesity 438553000 E66.9 BMI 33.7 , not wnl - patient advised to stop snacking at night- increase veggies [id number] [facility] [address] [place] [address] 01/03/2022 15:57:08 01/12/2022 13:52:37 Anxiety 13842434 F41.9 Patient states he is struggling with anxiety for the last few weeks. He is waking up multiple times per night and snacking. He feels anxious during the day and smoked more. Patient denies depression . He is working and it is going well.- increase sertraline - f/u one month Paranoid delusion 743357 001 F22 Patient doing better on olanzapine but thinks increased dose would be better. He can still hear male and female voices. paranoid feeling ahve decreased and feels more in control. Does smoke marijuana but denies snorting meth recently. He still has break through anxiety and is still not sleeping. On exam : speech is clear, fluid, linear. eye contact is appropriat e. He is shaking his legs and fidgeting with his thumbs. He seems to have good insight. ddx: drug-relat ed psychosis, paranoid disorder, depression with psychotic features, schitzophr enia, paranoid delusional disorder, brief psychotic disorder. - increase olanzapine , patient understand s this is the higher dose of medication adn he cannot dose himself.- psychiatry - f/u two weeks- ER if symptoms develop again of HI/SI, delusions Obesity 091938289 E66.9 BMI 33.7 , not wnl - patient advised to stop snacking at night- increase veggies- start walking- he like riding his bike [id number] [facility] [address] [place] [address] 08/14/2022 13:42:55 08/14/2022 14:45:26 Essential hypertension 46486028 I10 BP high at 118/74 , controlled . - stop smoking- stop drinking calories- check BP at home Anxiety 62661316 F41.9 Patient states he is struggling with anxiety for the last few weeks. He is waking up multiple times per night and snacking. He feels anxious during the day and smoked more. Patient denies depression . He is working and it is going well.- increase sertraline - f/u one month Paranoid delusion 796642 001 F22 Patient doing better on olanzapine but thinks increased dose would be better. He can still hear male and female voices. paranoid feeling ahve decreased and feels more in control. Does smoke marijuana but denies snorting meth recently. He still has break through anxiety and is still not sleeping. On exam : speech is clear, fluid, linear. eye contact is appropriat e. He is shaking his legs and fidgeting with his thumbs. He seems to have good insight. ddx: drug-relat ed psychosis, paranoid disorder, depression with psychotic features, schitzophr enia, paranoid delusional disorder, brief psychotic disorder. - increase olanzapine , patient understand s this is the higher dose of medication adn he cannot dose himself.- psychiatry - f/u two weeks- ER if symptoms develop again of HI/SI, delusions Obesity 651080232 E66.9 BMI 38.8 , not wnl. 30 lb weight gain in 6 months. discussed diet with patient.Daryl richardson denies fam hx of thyroid cancer, personal hx pancreatit is. Medication side effects were reviewed with patient and include TEZ, pancreatit is, nausea, vomiting, stomach upset. Patient was shown pen and was shown how to clean area, inject pen, and how often to administer . - patient advised to stop snacking at night- went over all his sugary drinks and he agrees to stop or drink 0 sugar- increase veggies- start walking- he like riding his bike Smoker 85697222 F17.200 smoking 1/2ppd (down from 1ppd), advised to cut back. He states his anxiety is causing him to smoke. Administra tion of diphtheria, pertussis, and tetanus vaccine 023445535 Z23 Warfarin m onitoring status 258924969 Z51.81 last INR was 2.0, not wnl. states he forgot to take medication for a few days. needs new INR drawn. increasing to 6mg 3/7 days and 5mg remaining four days. recehck in 1.5 weeks INR goal 2.5-3.5 - continue 5mg daily warfarin [id number] [facility] [address] [place] [address] 02/14/2023 16:44:52 02/14/2023 17:07:30 Paranoid delusion 413763557 F22 Patient doing better on olanzapine and sertraline . He is still not motivated, has increased hunger, not getting up to work, and sleeping all day. Does smoke marijuana but denies snorting meth recently. He still has break through anxiety. On exam : speech is clear, fluid, linear. eye contact is appropriat e. He is shaking his legs and fidgeting with his thumbs. He seems to have good insight. ddx: drug-relat ed psychosis, paranoid disorder, depression with psychotic features, schitzophr enia, paranoid delusional disorder, brief psychotic disorder. - psychiatry - ER if symptoms develop again of HI/SI, delusions Acute non- ST segment elevation myocardial infarction [id number] I21.4 Patient was taken to [facility] 02/07/2023 episode of chest pain. Found to have NSTEMI. He was taken to lab director , found to have 90% blockage. He has been released and feels stable. states anxiety causes BP to be high. complaint with all medication s. PLAN: triple tx 1 months ASA, plavix and warfarin; then warfarin and plavix x 12 months. Was taking 7.5mg coumadin daily but per coumadin clinic he is now to take 5mg. He will see Dr Gaona in a few weeks. MOM will contact cardio office with BP reading. - cardiology f/u coming up- continue with OP warfarin monitoring - call cardio office with BP reading, high today Essential hypertension 06717437 I10 JOSE high, he states he has anxietyHe will call cardiology with BP reading. - stop smoking- stop drinking calories- check BP at home [id number] [facility] [address] [place] [address] 03/22/2023 09:13:25 03/22/2023 10:19:58 Paranoid delusion 536015313 F22 paranoid delusion on remission with current medication s. Patient doing better on olanzapine and sertraline . He is still not motivated, has increased hunger, not getting up to work, and sleeping all day. Does smoke marijuana but denies snorting meth recently. He still has break through anxiety.wi ll switch olanzapine to night. he called [facility] while in office and is to call daily to get in. he was given psych referral again today and asked to please call before leaving office to make appointmen t. On exam : speech is clear, fluid, linear. eye contact is appropriat e. He is shaking his legs and fidgeting with his thumbs. He seems to have good insight. ddx: drug-relat ed psychosis, paranoid disorder, depression with psychotic features, schitzophr enia, paranoid delusional disorder, brief psychotic disorder. - psychiatry - ER if symptoms develop again of HI/SI, delusions Acute non- ST segment elevation myocardial infarction 717103845 I21.4 03/22/23 patient unable to get into see Dr Gaona due to insurance. I called [facility] and placed on hold. I called [facility] but do not accept insurance. will [facility] order. patient was educated again on checking BP, stopping his smoking, and eating heart healthy diet. will obtain INR and other labs today. refuses cardiac rehab. 02/2023: Patient was taken to [facility] 02/07/2023 episode of chest pain. Found to have NSTEMI. He was taken to lab director , found to have 90% blockage. He has been released and feels stable. states anxiety causes BP to be high. complaint with all medication s. not checking BP. will order cuff or he can buy one. r PLAN: warfarin and plavix x 12 months. Was taking 7.5mg coumadin daily but per coumadin clinic he is now to take 5mg. due to insurance he has not done his INR check. - cardiology f/u coming up- continue with OP warfarin monitoring - call cardio office with BP reading, high today Essential hypertension 31466759 I10 BP high, he states he has anxiety but does not cehck at homeHe will call cardiology with BP reading. - stop smoking- stop drinking calories- check BP at home Morbid obesity 492921216 E66.01 BMI 40.6 Adult heal th examination 111071259 Z00.00 spent most of toady's visit on the phone to help patient as he has trouble making appointmen ts. He was sent home with referralsl [facility] cardiology , denies cp today plavixno signs of bleedinged ucated on diet Warfarin m onitoring status 142311370 Z51.81 draw INR todaycompl aint on warfarin 5mg and [id number] [facility] [address] [place] [address] 08/16/2023 11:30:15 08/16/2023 14:19:56 Paranoid delusion 565701395 F22 paranoid delusion on remission with current medication s. Patient doing better on olanzapine and sertraline but had has too much weight gain. will switch to aripiprazo le. He is still not motivated, has increased hunger, not getting up to work, and sleeping all day. Does smoke marijuana but denies snorting meth recently. He still has break through anxiety. He was given psych referral again today and asked to please call before leaving office to make appointmen t. On exam : speech is clear, fluid, linear. eye contact is appropriat e. He is shaking his legs and fidgeting with his thumbs. He seems to have good insight. - psychiatry scheduled for 11/2023, advised calling [facility] in am - ER if symptoms develop again of HI/SI, delusions Medication monitoring 39 6361159 Z51.81 on warfarin controlled per labs done 08/16/23 at [facility] Essential hypertension 47737775 I10 BP high, he states he has anxiety but does not check at homeHe will call cardiology with BP reading. - stop smoking- stop drinking calories- check BP at home Morbid obesity 090213495 E66.01 BMI 45 [id number] Magui Medina MD [facility] [address] [place] [address] 09/17/2023 15:13:08 09/17/2023 17:01:09 Generalized anxiety disorder 82754995 F41.1 Maxed on sertraline . Will consider Buspar and/or hydroxyzin e for anxiety Long-term drug therapy 370974323 Z79.899 Ordered baseline labs, including INR. Depressive disorder 3548 9007 F32.A Maxed on sertraline . Will consider another antidepres corky and/or TxrD SGA. Posttrauma tic stress disorder 55239090 F43.10 Trauma from 13yo aortic valve replacemen t which restricted his life thereafter causing him to turn to drugs. Additional subsequent medical near- events + recent 2 immediate family deaths. [id number] Magui Medina MD [facility] [address] [place] [address] 09/24/2023 16:00:13 09/25/2023 18:18:17 Generalized anxiety disorder 13887363 F41.1 Maxed on sertraline . START Buspar 5mg PO BID. Long-term drug therapy 970179203 Z79.899 Will review baseline labs when they become available. Reordered INR d/t med change. Depressive disorder 4068 9007 F32.A Maxed on sertraline . Will consider another antidepres corky such as Trintellex (obtaining PA) and/or TxrD SGA. Posttrauma tic stress disorder 01199536 F43.10 Trauma from 13yo aortic valve replacemen t which restricted his life thereafter causing him to turn to drugs. Additional subsequent medical near- events + recent 2 immediate family deaths. Auditory hallucinations 93876862 R44.0 Increaed Abilify from 10mg to 15mg PO qd [id number] Alex long MD [facility] [address] [place] [address] 10/04/2023 11:48:36 10/04/2023 14:07:51 Liver enzymes level above reference range 092605491 R74.01 repeat Warfarin m onitoring status 401533887 Z51.81 draw INR todaycompl aint on warfarin 5mg and Wheezing 01368637 R06.2 wheezing in the morning. has asthma as a child.- stop smoking- pft to establish lung function Paranoid delusion 404060 001 F22 paranoid delusion mostly in remission with current medication s. continue to follow with psych. On exam : speech is clear, fluid, linear. eye contact is appropriat e. Morbid obesity 891385874 E66.01 BMI 45 [id number] ZAIRA LIU [facility] [address] [place] [address] 10/08/2023 15:36:28 10/17/2023 09:57:33 Generalized anxiety disorder 94448952 F41.1 Maxed on sertraline . cont Buspar 5mg PO BID. Long-term drug therapy 995316075 Z79.899 labs 6/20 wnl Depressive disorder 3548 9007 F32.A Maxed on sertraline . Will consider another antidepres corky such as Trintellex (obtaining PA) and/or TxrD SGA. Posttrauma tic stress disorder 99643347 F43.10 Trauma from 13yo aortic valve replacemen t which restricted his life thereafter causing him to turn to drugs. Additional subsequent medical near- events + recent 2 immediate family deaths. Auditory hallucinations 46711670 R44.0 increased Abilify from 15mg to 20mg PO qd [id number] Magui Medina MD [facility] [address] [place] [address] 10/22/2023 15:49:00 10/27/2023 19:17:34 Generalized anxiety disorder 72357994 F41.1 Maxed on sertraline . cont Buspar 5mg PO BID. Long-term drug therapy 297355017 Z79.899 labs 620 wnl Depressive disorder 3548 9007 F32.A Maxed on sertraline . Will consider another antidepres corky such as Trintellex (obtaining PA) and/or TxrD SGA or mirtazapin e. Posttrauma tic stress disorder 08665926 F43.10 Trauma from 13yo aortic valve replacemen t which restricted his life thereafter causing him to turn to drugs. Additional subsequent medical near- events + recent 2 immediate family deaths. Auditory hallucinations 17617488 R44.0 Cont Abilify 20mg PO qd UNTIL we begin Lybalvi 5mg-10mg at which time we will cross taper Abilify 10mg x 1wk, then 5mg x 1 week, then stop Abilify. Will need a PA or patient assistance for Lybalvi. Waiting now for pharmacy kickback to see what prior med trials are required. Will notify Pt when to begin Lybalvi. Provided Pt with 2 weeks of samples with kyler long to not begin taking them until he hears from this provider. [id number] Magui Medina MD [facility] [address] [place] [address] 11/05/2023 15:45:15 11/07/2023 20:20:32 Generalized anxiety disorder 30176341 F41.1 Maxed on sertraline . cont Buspar 5mg PO BID. Long-term drug therapy 093927056 Z79.899 labs 10/03 wnl; 6 A1C 6.0 Depressive disorder 3548 9007 F32.A Maxed on sertraline . Will consider another antidepres corky such as Trintellex (obtaining PA) and/or TxrD SGA or mirtazapin e. Refilled sertraine. Posttrauma tic stress disorder 11067378 F43.10 Trauma from 13yo aortic valve replacemen t which restricted his life thereafter causing him to turn to drugs. Additional subsequent medical near- events + recent 2 immediate family deaths. Auditory hallucinations 91131383 R44.0 Cont Abilify 20mg PO qd UNTIL we begin Lybalvi 5mg-10mg at which time we will cross taper Abilify 10mg x 1wk, then 5mg x 1 week, then stop Abilify. Will need a PA or patient assistance for Lybalvi. Waiting now for insurance kickback to see what prior med trials are required. Will notify Pt when to begin Lybalvi. Provided Pt with 2 weeks of samples with kyler long to not begin taking them until he hears from this provider. Anxiety 44543439 F41.9 Refilled sertraline and buspar [id number] Magui Medina MD [facility] [address] [place] [address] 12/03/2023 15:46:37 12/05/2023 13:19:24 Generalized anxiety disorder 07956411 F41.1 Maxed on sertraline . cont Buspar 5mg PO BID. Long-term drug therapy 475319082 Z79.899 labs 10/03 wnl; 6 A1C 6.0. Managed b PCP. Depressive disorder 3548 9007 F32.A Maxed on sertraline . Will consider another antidepres corky or TxrD SGA or mirtazapin e. Refilled sertraline . Posttrauma tic stress disorder 18719597 F43.10 Trauma from 13yo aortic valve replacemen t which restricted his life thereafter causing him to turn to drugs. Additional subsequent medical near- events + recent 2 immediate family deaths. Auditory hallucinations 42229043 R44.0 Cont Abilify but increase from 20mg to 25mg to address the remaining voice AH Anxiety 74985238 F41.9 Refilled sertraline and buspar [id number] Reji Johnson MD [facility] [address] [facility] [address] 06/05/2024 10:19:15 06/05/2024 11:10:16 Anxiety 82932396 F41.9 PHQ and NICHOLAS 0Controlle d on sertraline denies hallucinat ions in the last few monthsdeni es si/hi Warfarin m onitoring status 398623024 Z51.81 draw INR todaycompl aint on warfarin 5mgno signs of bleeding Obesity 073962347 E66.9 BMI 37 , has improved after stopping olanzapine and ariprprazo le. - patient advised to stop snacking at night- went over all his sugary drinks and he agrees to stop or drink 0 sugar- increase veggies- start walking- he like riding his bike History of mechanical heart valve replacement [id number] 9109 Z95.2 Patient was underwent surgery in 1998 for a bicuspid aortic heart valve. No complicati ons from surgery. He takes coumadin daily. currently on 5mg daily. last INR in 02/2024 and needs repeat today. denies any signs of bleeding. - goal is 2.5-3.5 INR - recehck INR - needs new cardio referral and [place] stopped taking medicaid Sleep apnea 49418642 G47 .30 he is wearing cpap nightlyhas significan tly improved sleep Smoker 91713628 F17.200 smoking 1/4 ppd, advised to cut back or quitting. mom quit and he plans on quitting soon. Health Concerns Section Related Observation LastModified by Organization Detai ls LastModified Time None Recorded Concern Status LastModified by Organization Details LastModified Time None Recorded Advance Directives Directive None Recorded Payers Encounter Date Sequence Insurance Name Policy Number Policy Ascencio Covered Member ID Ascencio Member ID Guarantor Name 10/08/2023 1 [facility] (MEDICAID REPLACEMENT - HMO) [id number] Guero Hoover [id number] Guero Hoover 10/22/2023 1 [facility] (MEDICAID REPLACEMENT - HMO) [id number] Guero Hoover [id number] Guero Hoover 11/05/2023 1 [facility] (MEDICAID REPLACEMENT - HMO) [id number] Guero Rollinsam [id number] Guero Hoover 12/03/2023 1 [facility] (MEDICAID REPLACEMENT - HMO) [id number] Guero Hoover [id number] Guero Hoover 06/05/2024 1 [facility] (MEDICAID REPLACEMENT - HMO) [id number] Guero Hoover [id number] Guero Hoover Notes Date Note Type Note Provider Name and Address Organization Details Recorded Time 4 text/html 37yo M presents for [facility] with mother. Hx of CLAUDIA, NICHOLAS, MDD, trauma. Symptom Hx of AH (current), severe anxiety, moderate depression. Drugs THC smoke daily x 20yrs., Tobacco__1__pk/d, EtOH__on many weekends, 12pk. C/C this visit is anxiety.---------Referred by: Kimberley BRITO - FMPsychiatrist? noTherapist/Support Gps (eHusseing BOOM)? noPCP? Kimberley BRITO - FMEKGs done [facility] MEDICA TIONS Allergies: Vit K. Compliant.- Abilify 10mg - helps with relaxing him in the AM then rubs away - Sertraline 100mg BID (take 200mg once daily) - mom says if he misses a dose he becomes very anxious [warfarin 5mg, clopidogrel 75mg, lasix 20mg] Previous medication trials: zyprexa - weight gain- - - - - -Consider: Lybalvi (zyprexa + naltrexone-like) if Abilify does not work; inc zoloft if still major depression [NOTE: any SSRI (e.g. prozac-displace, fluvoxamine-displace for psychotic/delusional D) or Effexor for depression (NICHOLAS) [can displace warfarin to inc bleeding risk] OR change to Trintillex; increase buspar for anxiety if needed. considre mirtazapine- FU: 10/07 1445. How is buspar working for anxiety? How is 15mg abilify working for AH? How is depression? STATES....nothing changed. Sleeping okay with cpap machine. Reports he is happy one minute and sad the next still. Depression the same, Anxiety is less. Still has AH. Current GOALS: PHQ9 - GAD7 - MDQ - NEGPCL5 - 50SIB, SI or HI: denies current.- - - -PLAN:- Target s/s: trauma/anxiety/depression, AH; CLAUDIA- Continue: - abilify but increase from 10mg to 15mg- sertraline 100mg PO qd (take 2 tabs daily) - helps in AM makes me happy - START: - abilify 15mg (was 10mg)- Buspar 5mg PO BID - Labs: Labs: Pt had them done at [facility]. Have not received them from [facility]. Pt will bring them in. CONTINUE TO CHECK INR- Referral to no one- Encouraged less EtOH, THC- Educated ADR/SEs of Abilify and Buspar, including serotonin s/s and when to go to the ER. Educated how EtOH and THC are working against his s/s and meds.- Consider: Lybalvi (zyprexa + naltrexone-like) if Abilify does not work; inc zoloft if still major depression [NOTE: any SSRI (e.g. prozac-displace, fluvoxamine-displace for psychotic/delusional D) or Effexor for depression (NICHOLAS) [can displace warfarin to inc bleeding risk] OR change to Trintillex; increase buspar for anxiety if needed- FU:How is inc of abilify to 20mg working for AH? how is anx, depression? A DDITIONAL INFORMATION [ 09-24-23] 37yo M presents for FU with mother. Last seen by 09-17-23. Hx of CLAUDIA, NICHOLAS, MDD, trauma. Symptom Hx of AH (current), severe anxiety, moderate depression. Drugs THC smoke daily x 20yrs., Tobacco__1__pk/d, EtOH__on many weekends, 12pk. C/C this visit is anxiety.---------Referred by: Kimberley BRITO - FMPsychiatrist? noTherapist/Support Gps (e.g BOOM)? noPCP? Kimberley BRITO - FMEKGs done at [facility] Allergies: Vit K. Compliant.- Abilify 10mg - helps with relaxing him in the AM then rubs away - Sertraline 100mg BID (take 200mg once daily) - mom says if he misses a dose he becomes very anxious [warfarin 5mg, clopidogrel 75mg, lasix 20mg] Previous medication trials: zyprexa - weight gain STATES....nothing changed. Sleeping okay with cpap machine. Reports he is happy one minute and sad the next. Current GOALS: PHQ9 - 16/21GAD7 - 19/19MDQ - NEGSIB, SI or HI: denies current.- - - -PLAN:- Target s/s: trauma/anxiety/depression, AH; CLAUDIA- Continue: - abilify but increase from 10mg to 15mg incorease to 20mg- sertraline 100mg PO qd (take 2 tabs daily) - START: - abilify 20mg (was 15mg)- Buspar 5mg PO BID - Labs: Labs: Pt had them done at [facility]. Have not received them from [facility]. Pt will bring them in. CONTINUE TO CHECK INR- Referral to no one- Encouraged less EtOH, THC- Educated ADR/SEs of Abilify and Buspar, including serotonin s/s and when to go to the ER. Educated how EtOH and THC are working against his s/s and meds.- Consider: Lybalvi (zyprexa + naltrexone-like) if Abilify does not work; inc zoloft if still major depression [NOTE: any SSRI (e.g. prozac-displace, fluvoxamine-displace for psychotic/delusional D) or Effexor for depression (NICHOLAS) [can displace warfarin to inc bleeding risk] OR change to Trintillex; increase buspar for anxiety if needed- FU: 2 weeks. How is buspar working for anxiety? well. How is 20mg abilify working for AH? How is depression? A DDITIONAL INFORMATION [ NEW PATIENT INTAKE 09-17-23]37yo M presents for Behavioral Health evaluation as a new patient with mother. Last seen by never. Hx of CLAUDIA, NICHOLAS, MDD, trauma. Symptom Hx of AH (current), severe anxiety, moderate depression. Drugs THC smoke daily x 20yrs., Tobacco__1__pk/d, EtOH__on many weekends, 12pk. C/C this visit is to establish care. Top patient priority is anxiety.---------Referred by: Kimberley BRITO - FMPsychiatrist? noTherapist/Support Gps (e.g BOOM)? noPCP? Kimberley Ray FMEKGs done at [facility] Allergies: Vit K. Compliant.- Abilify 10mg - helps with relaxing him in the AM then rubs away - Sertraline 100mg BID (take 200mg once daily) - mom says if he misses a dose he becomes very anxious [warfarin 5mg, clopidogrel 75mg, lasix 20mg] Previous medication trials: zyprexa - weight gain- - - - - -STATES....... my medicine isn't helping me anymore . Would like anxiety control throughout the day. Endorses anxiety beginning in teens, depression beginning 16yo, AH beginning 2yrs ago (after meth use x 2yrs). STRESSORS: Lost dad and grandpa within last 2mths. 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 Got 16yo, then baby at 3mths of SIDS, then divorce. Anxiety: about everything, can't sit in one spot, up and down all night, just got CPAP so sleep slightly better now. Recent history of no sleep, and eating around the clock but better now with sleeping. Depression: nothing can make me happy endorses loosing interests in hobbies, eats more, sleeps less. Present all the time constant without more severe episodes. Began doing drugs in HS; states d/t his depression. EtOH drink and drove before 20yo so lost license. Still wanted a drug so went to meth x 2yrs. Paranoia/Delusions: I think about cameras watching me sometimes A/V hallucinations: shadows out of corner of eyes very frequently. Goes on and off a little bit . Persecutory voices don't like me, against me. Frequently in afternoon and just after getting up, most of the day or when I think to much. x a couple of years (after meth) but not before then. Current GOALS: getting back to a routine so I can go back to work; sleeping and everything right PHQ9 - 21GAD7 - 19MDQ - NEGPCL5 - n/aDepression: 8/10 with 10 being the worstAnxiety: 10/10 with 10 being the worstAnger/Irritability: 0/10 with 10 being the worstSIB, SI or HI: denies current. denies Labs: Will order for today, including INR- - - -PLAN:- Target s/s: trauma/anxiety/depression, AH; CLAUDIA- Continue:- abilify 10mg PO qd- sertraline 100mg PO qd (take 2 tabs daily)- Start: nothing at this time- Labs: Ordered today, including INR- Referral to no one- Encouraged less EtOH, THC- Consider: Buspar and/or hydroxyzine for anxiety; any (e.g. prozac-displace, fluvoxamine-displace for psychotic/delusional D) or Effexor for depression (NICHOLAS) [can displace warfarin to inc bleeding risk]; inc abilify to 15mg/d OR switch to brexpiprazole (rexulti) for SCHZ/TxRD (WG, TD) OR add low dose risperidone for SCHZ- FU: 09/23 1515. Provide med plan for depression/anxiety. How is AH now on Abilify? Decrease in EtOH, THC? -------CURRENT SYMPTOMSSleep: better with CPAP, gets up a couple times a night and a daytime napAppetite: trying to diet, appetite is good Meghan?:Bipolar 1 disorder (3 or more)Increased talkativenessHeightened self-esteem or grandiosity - noDecreased need for sleep - noIncreased energy, goal-oriented activities, or irritabilityRacing thoughts - my mind changes a bunch - just a couple of yearsDecreased attention span - yes hard to concentrateIncreased risk-taking behaviors - suazo in the past Guns in home: yes, locked (hunts and fishes)Effective coping strategies/Social Support: mom, sister PMHMedical/surgical history: [place] 01/2023 (2 stents), 1998 aortic valve replacement, CHF as of 04/2023; HTN; baby double hernia; tonsillectomysz?: notbi?:no Inpatient psychiatric hospitalizations: 1998 for meth x 2SA (when, where, how): noLabs->Will order today Social [facility]; living with mom and dad most of lifeDv x 1 __2__kids two different moms (12, 20) Has relationship with the children but younger one wittnessed meth so she is still scared of himEmployment: 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 Tobacco__1__pk/d, EtOH__on many weekends, 12pk ; Caffeine: 1 cup/d Hx meth TraumaBorn? [place] Raised by? Mom/Dad. Childhood awesome until heart surgery = 1st child, 1st grandchild, spoiledAbuse - physical, who? noemotional, who? nosexual, who? age? noneglect/abandonment? no Family History (MH/Drugs/EtOH/SA)Mom: anxiety, depressionDad: stableSister: anxiety (takes xanax)M. Grandfather: anxiety, depression, EtOHM. Grandmother: anxiety, depressionM. Aunt: anxiety, depressionM. Uncle: anxiety, depression, EtOH EJ [employer]-[facility], LAT[employer]UD[employer] PROFESSOR-C Attn: Accounting,[address] [place], [address], [facility] 10/16/2023 15:03:52 4 text/html 37yo M presents for [facility] with mother. Hx of CLAUDIA, NICHOLAS, MDD, trauma. Symptom Hx of AH (current), severe anxiety, moderate depression. Drugs THC smoke daily x 20yrs., Tobacco__1__pk/d, EtOH__on many weekends, 12pk. C/C this visit is psychosis (AH, paranoia).---------Referred by: Kimberley BRITO - FMPsychiatrist? noTherapist/Support Gps (e.g BOOM)? noPCP? Kimberley BRITO - FMEKGs done at [facility] Allergies: Vit K. Compliant.- Abilify 10mg - helps with relaxing him in the AM then rubs away - Sertraline 100mg BID (take 200mg once daily) - mom says if he misses a dose he becomes very anxious [warfarin 5mg, clopidogrel 75mg, lasix 20mg] Previous medication trials: zyprexa - weight gain- - - - - -Consider: Lybalvi (zyprexa + naltrexone-like) if Abilify does not work; inc zoloft if still major depression [NOTE: any SSRI (e.g. prozac-displace, fluvoxamine-displace for psychotic/delusional D) or Effexor for depression (NICHOLAS) [can displace warfarin to inc bleeding risk] OR change to Trintillex; increase buspar for anxiety if needed. consider mirtazapine. - FU: 10/07 1445. How is buspar working for anxiety? How is 15mg abilify working for AH? How is depression?- - -How is inc of abilify to 20mg working for AH? how is anx, depression? STATES....hears voices every couple of days lasting most of the day, clear voices saying they want to steal stuff. Reports feeling better .....happier...can get sleep now...states takes buspar PRN and it helps calms his anxiety, says anxiety is good. Mom bought new padlock for front door Pt is still afraid people will steal his tools and any thing that a pawn shop would take. States he is using less THC now, not daily. Reports still smoking tobacco.; would like to decrease. Denies opioid use. (nothing changed. Sleeping okay with cpap machine. Reports he is happy one minute and sad the next still. Depression the same, Anxiety is less. Still has AH.) PHQ9 - 09/27/15GAD7 - 11/26/18MDQ - NEGPCL5 - 50 Depression: 09/21/09 with 10 being the worst - last assessed today 78Anxiety: 08/23/09 with 10 being the worstAnger/Irritability: with 10 being the worstSIB, SI or HI: denies current.- - - -PLAN:- Target s/s: psychosis (AH, paranoia), trauma/anxiety/depression; CLAUDIA- Continue: - abilify 20mg PO Qd- sertraline 100mg PO qd (take 2 tabs daily) - helps in AM makes me happy - buspar 5mg PO BID - Pt is taking PRN and feels it helps this way - START: - Lybalvi 5mg/10mg - Ordered this med but will require a PA. Waiting for the pharmacy kickback to the order to see what med trials are needed before beginning Lybalvi. Provided Pt with 2 weeks of samples with instruction to not begin taking them until he hears from this provider (who will review the med trial requirements first). - Labs: Labs: Pt had them done at [facility]. Have not received them from [facility]. Pt will bring them in. CONTINUE TO CHECK INR- Referral to no one- Encouraged less EtOH, THC- Educated ADR/SEs of Lybalvi and Buspar, including serotonin s/s, NMS, DRESS and when to go to the ER. Educated how EtOH and THC are working against his s/s and meds.- Consider: Lybalvi (zyprexa + naltrexone-like) if Abilify does not work; inc zoloft if still major depression [NOTE: any SSRI (e.g. prozac-displace, fluvoxamine-displace for psychotic/delusional D) or Effexor for depression (NICHOLAS) [can displace warfarin to inc bleeding risk] OR change to Trintillex; increase buspar for anxiety if needed- FU: IF started lybalvi, then did you get INR 4 days after starting? How is paranoia and AH? How is tapering on Abilify going? How is depression? A DDITIONAL INFORMATION [10-08-23] 37yo M presents for FU with mother. Hx of CLAUDIA, NICHOLAS, MDD, trauma. Symptom Hx of AH (current), severe anxiety, moderate depression. Drugs THC smoke daily x 20yrs., Tobacco__1__pk/d, EtOH__on many weekends, 12pk. C/C this visit is anxiety.---------Referred by: Kimberley BRITO - FMPsychiatrist? noTherapist/Support Gps (e.g BOOM)? noPCP? Kimberley BRITO - FMEKGs done at [facility] Allergies: Vit K. Compliant.- Abilify 10mg - helps with relaxing him in the AM then rubs away - Sertraline 100mg BID (take 200mg once daily) - mom says if he misses a dose he becomes very anxious [warfarin 5mg, clopidogrel 75mg, lasix 20mg] Previous medication trials: zyprexa - weight gain- - - - - -Consider: Lybalvi (zyprexa + naltrexone-like) if Abilify does not work; inc zoloft if still major depression [NOTE: any SSRI (e.g. prozac-displace, fluvoxamine-displace for psychotic/delusional D) or Effexor for depression (NICHOLAS) [can displace warfarin to inc bleeding risk] OR change to Trintillex; increase buspar for anxiety if needed. considre mirtazapine- FU: 10/07 1035. How is buspar working for anxiety? How is 15mg abilify working for AH? How is depression? STATES....nothing changed. Sleeping okay with cpap machine. Reports he is happy one minute and sad the next still. Depression the same, Anxiety is less. Still has AH. Current GOALS: PHQ9 - GAD7 - MDQ - NEGPCL5 - 50SIB, SI or HI: denies current.- - - -PLAN:- Target s/s: trauma/anxiety/depression, AH; CLAUDIA- Continue: - abilify but increase from 10mg to 15mg- sertraline 100mg PO qd (take 2 tabs daily) - helps in AM makes me happy - START: - abilify 15mg (was 10mg)- Buspar 5mg PO BID - Labs: Labs: Pt had them done at [facility]. Have not received them from [facility]. Pt will bring them in. CONTINUE TO CHECK INR- Referral to no one- Encouraged less EtOH, THC- Educated ADR/SEs of Abilify and Buspar, including serotonin s/s and when to go to the ER. Educated how EtOH and THC are working against his s/s and meds.- Consider: Lybalvi (zyprexa + naltrexone-like) if Abilify does not work; inc zoloft if still major depression [NOTE: any SSRI (e.g. prozac-displace, fluvoxamine-displace for psychotic/delusional D) or Effexor for depression (NICHOLAS) [can displace warfarin to inc bleeding risk] OR change to Trintillex; increase buspar for anxiety if needed- FU:How is inc of abilify to 20mg working for AH? how is anx, depression? A DDITIONAL INFORMATION [ 09-24-23] 37yo M presents for FU with mother. Last seen by 09-17-23. Hx of CLAUDIA, NICHOLAS, MDD, trauma. Symptom Hx of AH (current), severe anxiety, moderate depression. Drugs THC smoke daily x 20yrs., Tobacco__1__pk/d, EtOH__on many weekends, 12pk. C/C this visit is anxiety.---------Referred by: Kimberley BRITO - FMPsychiatrist? noTherapist/Support Gps (e.g BOOM)? noPCP? Kimberley Ray FMEKGs done at [facility] Allergies: Vit K. Compliant.- Abilify 10mg - helps with relaxing him in the AM then rubs away - Sertraline 100mg BID (take 200mg once daily) - mom says if he misses a dose he becomes very anxious [warfarin 5mg, clopidogrel 75mg, lasix 20mg] Previous medication trials: zyprexa - weight gain STATES....nothing changed. Sleeping okay with cpap machine. Reports he is happy one minute and sad the next. Current GOALS: PHQ9 - 16/21GAD7 - 19/19MDQ - NEGSIB, SI or HI: denies current.- - - -PLAN:- Target s/s: trauma/anxiety/depression, AH; CLAUDIA- Continue: - abilify but increase from 10mg to 15mg incorease to 20mg- sertraline 100mg PO qd (take 2 tabs daily) - START: - abilify 20mg (was 15mg)- Buspar 5mg PO BID - Labs: Labs: Pt had them done at [facility]. Have not received them from [facility]. Pt will bring them in. CONTINUE TO CHECK INR- Referral to no one- Encouraged less EtOH, THC- Educated ADR/SEs of Abilify and Buspar, including serotonin s/s and when to go to the ER. Educated how EtOH and THC are working against his s/s and meds.- Consider: Lybalvi (zyprexa + naltrexone-like) if Abilify does not work; inc zoloft if still major depression [NOTE: any SSRI (e.g. prozac-displace, fluvoxamine-displace for psychotic/delusional D) or Effexor for depression (NICHOLAS) [can displace warfarin to inc bleeding risk] OR change to Trintillex; increase buspar for anxiety if needed- FU: 2 weeks. How is buspar working for anxiety? well. How is 20mg abilify working for AH? How is depression? A DDITIONAL INFORMATION [ NEW PATIENT INTAKE 09-17-23]37yo M presents for Behavioral Health evaluation as a new patient with mother. Last seen by never. Hx of CLAUDIA, NICHOLAS, MDD, trauma. Symptom Hx of AH (current), severe anxiety, moderate depression. Drugs THC smoke daily x 20yrs., Tobacco__1__pk/d, EtOH__on many weekends, 12pk. C/C this visit is to establish care. Top patient priority is anxiety.---------Referred by: Kimberley BRITO - FMPsychiatrist? noTherapist/Support Gps (e.g BOOM)? noPCP? Kimberley BRITO - FMEKGs done at [facility] Allergies: Vit K. Compliant.- Abilify 10mg - helps with relaxing him in the AM then rubs away - Sertraline 100mg BID (take 200mg once daily) - mom says if he misses a dose he becomes very anxious [warfarin 5mg, clopidogrel 75mg, lasix 20mg] Previous medication trials: zyprexa - weight gain- - - - - -STATES....... my medicine isn't helping me anymore . Would like anxiety control throughout the day. Endorses anxiety beginning in teens, depression beginning 16yo, AH beginning 2yrs ago (after meth use x 2yrs). STRESSORS: Lost dad and grandpa within last 2mths. 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 Got 16yo, then baby at 3mths of SIDS, then divorce. Anxiety: about everything, can't sit in one spot, up and down all night, just got CPAP so sleep slightly better now. Recent history of no sleep, and eating around the clock but better now with sleeping. Depression: nothing can make me happy endorses loosing interests in hobbies, eats more, sleeps less. Present all the time constant without more severe episodes. Began doing drugs in HS; states d/t his depression. EtOH drink and drove before 20yo so lost license. Still wanted a drug so went to meth x 2yrs. Paranoia/Delusions: I think about cameras watching me sometimes A/V hallucinations: shadows out of corner of eyes very frequently. Goes on and off a little bit . Persecutory voices don't like me, against me. Frequently in afternoon and just after getting up, most of the day or when I think to much. x a couple of years (after meth) but not before then. Current GOALS: getting back to a routine so I can go back to work; sleeping and everything right PHQ9 - 21GAD7 - 19MDQ - NEGPCL5 - n/aDepression: 8/10 with 10 being the worstAnxiety: 10/10 with 10 being the worstAnger/Irritability: 0/10 with 10 being the worstSIB, SI or HI: denies current. denies Labs: Will order for today, including INR- - - -PLAN:- Target s/s: trauma/anxiety/depression, AH; CLAUDIA- Continue:- abilify 10mg PO qd- sertraline 100mg PO qd (take 2 tabs daily)- Start: nothing at this time- Labs: Ordered today, including INR- Referral to no one- Encouraged less EtOH, THC- Consider: Buspar and/or hydroxyzine for anxiety; any (e.g. prozac-displace, fluvoxamine-displace for psychotic/delusional D) or Effexor for depression (NICHOLAS) [can displace warfarin to inc bleeding risk]; inc abilify to 15mg/d OR switch to brexpiprazole (rexulti) for SCHZ/TxRD (WG, TD) OR add low dose risperidone for SCHZ- FU: 09/23 1515. Provide med plan for depression/anxiety. How is now on Abilify? Decrease in EtOH, THC? -------CURRENT SYMPTOMSSleep: better with CPAP, gets up a couple times a night and a daytime napAppetite: trying to diet, appetite is good Meghan?:Bipolar 1 disorder (3 or more)Increased talkativenessHeightened self-esteem or grandiosity - noDecreased need for sleep - noIncreased energy, goal-oriented activities, or irritabilityRacing thoughts - my mind changes a bunch - just a couple of yearsDecreased attention span - yes hard to concentrateIncreased risk-taking behaviors - suazo in the past Guns in home: yes, locked (hunts and fishes)Effective coping strategies/Social Support: mom, sister PMHMedical/surgical history: [place] 01/2023 (2 stents), 1998 aortic valve replacement, CHF as of 04/2023; HTN; baby double hernia; tonsillectomysz?: notbi?:no Inpatient psychiatric hospitalizations: 1998 for meth x 2SA (when, where, how): noLabs->Will order today Social History[facility] and mom; living with mom and dad most of lifeDv x 1 __2__kids two different moms (12, 20) Has relationship with the children but younger one wittnessed meth so she is still scared of himEmployment: 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 Tobacco__1__pk/d, EtOH__on many weekends, 12pk ; Caffeine: 1 cup/d Hx meth TraumaBorn? [place] Raised by? Mom/Dad. Childhood awesome until heart surgery = 1st child, 1st grandchild, spoiledAbuse - physical, who? noemotional, who? nosexual, who? age? noneglect/abandonment? no Family History (MH/Drugs/EtOH/SA)Mom: anxiety, depressionDad: stableSister: anxiety (takes xanax)M. Grandfather: anxiety, depression, EtOHM. Grandmother: anxiety, depressionM. Aunt: anxiety, depressionM. Uncle: anxiety, depression, EtOH EJ [employer] MAN, LAT[employer]UD[employer] PROFESSOR-C Attn: Accounting,[address] [facility], [place], [address], [facility] 10/24/2023 17:11:58 4 text/html 37yo M presents for [facility] with mother. Hx of CLAUDIA, NICHOLAS, MDD, trauma. Symptom Hx of AH (current), severe anxiety, moderate depression. Drugs THC smoke daily x 20yrs., Tobacco__1__pk/d, EtOH__on many weekends, 12pk. C/C this visit is psychosis (AH, paranoia).---------Referred by: Kimberley BRITO - FMPsychiatrist? noTherapist/Support Gps (e.g BOOM)? noPCP? Kimberley BRITO - FMEKGs done at [facility] Allergies: Vit K. Compliant. - abilify 20mg PO Qd - helps with relaxing him in the AM then rubs away - sertraline 100mg PO qd (take 2 tabs daily) - helps in AM makes me happy ; mom says if he misses a dose he becomes very anxious- buspar 5mg PO BID - Pt is taking PRN and feels it helps this way (takes 1/d) [warfarin 5mg, clopidogrel 75mg, lasix 20mg] Previous medication trials: zyprexa - weight gain- - -How is inc of abilify to 20mg working for AH? how is anx, depression? STATES....things are about the same. Still hears some muffled voices. will begin taking buspar bid instead of qd for anxiety. Will notify Pt when lybalvi approval comes in. (prev visit - hears voices every couple of days lasting most of the day, clear voices saying they want to steal stuff. Reports feeling better .....happier...can get sleep now...states takes buspar PRN and it helps calms his anxiety, says anxiety is good. Mom bought new padlock for front door Pt is still afraid people will steal his tools and any thing that a pawn shop would take. States he is using less THC now, not daily. Reports still smoking tobacco.; would like to decrease. Denies opioid use. )(nothing changed. Sleeping okay with cpap machine. Reports he is happy one minute and sad the next still. Depression the same, Anxiety is less. Still has AH.) PHQ9 - 10/19/12GAD7 - 26/11/12MDQ - NEGPCL5 - 50 Depression: with 10 being the worst - last assessed nxiety: 08/18/09 with 10 being the worstAnger/Irritability: with 10 being the worstSIB, SI or HI: denies current today- - - -PLAN:- Target s/s: psychosis (AH, paranoia), trauma/anxiety/depression; CLAUDIA- Continue: - abilify 20mg PO Qd- sertraline 100mg PO qd (take 2 tabs daily)- buspar 5mg PO BID - has been taking qd, will now take BID - START (when PA is approved): - Lybalvi 5mg/10mg - Ordered this med but will require a PA. Waiting for insurance company to kickback to the order to see what med trials are needed before beginning Lybalvi. Provided Pt with 2 weeks of samples last visit with instruction to not begin taking them until he hears from this provider (who will review the med trial requirements first). - Labs: Labs: 09-20-23 A1C 6.0. CONTINUE TO CHECK INR- Referral to no one- Encouraged less EtOH, THC- Educated ADR/SEs of Lybalvi and Buspar, including serotonin s/s, NMS, DRESS and when to go to the ER. Educated how EtOH and THC are working against his s/s and meds.- Consider: Lybalvi (zyprexa + naltrexone-like) if Abilify does not work; inc zoloft if still major depression [NOTE: any SSRI (e.g. prozac-displace, fluvoxamine-displace for psychotic/delusional D) or Effexor for depression (NICHOLAS) [can displace warfarin to inc bleeding risk] OR change to Trintillex; increase buspar for anxiety if needed- FU: IF started lybalvi, then did you get INR 4 days after starting? How is paranoia and AH? How is tapering on Abilify going? How is depression? A DDITIONAL INFORMATION 10-21-24: 37yo M presents for [facility] with mother. Hx of CLAUDIA, NICHOLAS, MDD, trauma. Symptom Hx of AH (current), severe anxiety, moderate depression. Drugs THC smoke daily x 20yrs., Tobacco__1__pk/d, EtOH__on many weekends, 12pk. C/C this visit is psychosis (AH, paranoia).---------Referred by: Kimberley BRITO - FMPsychiatrist? noTherapist/Support Gps (e.g BOOM)? noPCP? Kimberley Ray FMEKGs done at [facility] Allergies: Vit K. Compliant.- Abilify 10mg - helps with relaxing him in the AM then rubs away - Sertraline 100mg BID (take 200mg once daily) - mom says if he misses a dose he becomes very anxious [warfarin 5mg, clopidogrel 75mg, lasix 20mg] Previous medication trials: zyprexa - weight gain- - - - - -Consider: Lybalvi (zyprexa + naltrexone-like) if Abilify does not work; inc zoloft if still major depression [NOTE: any SSRI (e.g. prozac-displace, fluvoxamine-displace for psychotic/delusional D) or Effexor for depression (NICHOLAS) [can displace warfarin to inc bleeding risk] OR change to Trintillex; increase buspar for anxiety if needed. consider mirtazapine. - FU: 10/07 5175. How is buspar working for anxiety? How is 15mg abilify working for AH? How is depression?- - -How is inc of abilify to 20mg working for AH? how is anx, depression? STATES....hears voices every couple of days lasting most of the day, clear voices saying they want to steal stuff. Reports feeling better .....happier...can get sleep now...states takes buspar PRN and it helps calms his anxiety, says anxiety is good. Mom bought new padlock for front door Pt is still afraid people will steal his tools and any thing that a pawn shop would take. States he is using less THC now, not daily. Reports still smoking tobacco.; would like to decrease. Denies opioid use. (nothing changed. Sleeping okay with cpap machine. Reports he is happy one minute and sad the next still. Depression the same, Anxiety is less. Still has AH.) PHQ9 - 09/27/15GAD7 - /MDQ - NEGPCL5 - 50 Depression: 09/21/09 with 10 being the worst - last assessed today 8Anxiety: 08/23/09 with 10 being the worstAnger/Irritability: 0 with 10 being the worstSIB, SI or HI: denies current.- - - -PLAN:- Target s/s: psychosis (AH, paranoia), trauma/anxiety/depression; CLAUDIA- Continue: - abilify 20mg PO Qd- sertraline 100mg PO qd (take 2 tabs daily) - helps in AM makes me happy - buspar 5mg PO BID - Pt is taking PRN and feels it helps this way - START: - Lybalvi 5mg/10mg - Ordered this med but will require a PA. Waiting for the pharmacy kickback to the order to see what med trials are needed before beginning Lybalvi. Provided Pt with 2 weeks of samples with instruction to not begin taking them until he hears from this provider (who will review the med trial requirements first). - Labs: Labs: Pt had them done at [facility]. Have not received them from [facility]. Pt will bring them in. CONTINUE TO CHECK INR- Referral to no one- Encouraged less EtOH, THC- Educated ADR/SEs of Lybalvi and Buspar, including serotonin s/s, NMS, DRESS and when to go to the ER. Educated how EtOH and THC are working against his s/s and meds.- Consider: Lybalvi (zyprexa + naltrexone-like) if Abilify does not work; inc zoloft if still major depression [NOTE: any SSRI (e.g. prozac-displace, fluvoxamine-displace for psychotic/delusional D) or Effexor for depression (NICHOLAS) [can displace warfarin to inc bleeding risk] OR change to Trintillex; increase buspar for anxiety if needed- FU: IF started lybalvi, then did you get INR 4 days after starting? How is paranoia and AH? How is tapering on Abilify going? How is depression? A DDITIONAL INFORMATION [10-08-23] 37yo M presents for FU with mother. Hx of CLAUDIA, NICHOLAS, MDD, trauma. Symptom Hx of AH (current), severe anxiety, moderate depression. Drugs THC smoke daily x 20yrs., Tobacco__1__pk/d, EtOH__on many weekends, 12pk. C/C this visit is anxiety.---------Referred by: Kimberley BRITO - FMPsychiatrist? noTherapist/Support Gps (e.g BOOM)? noPCP? Kimberley Ray FMEKGs done at [facility] Allergies: Vit K. Compliant.- Abilify 10mg - helps with relaxing him in the AM then rubs away - Sertraline 100mg BID (take 200mg once daily) - mom says if he misses a dose he becomes very anxious [warfarin 5mg, clopidogrel 75mg, lasix 20mg] Previous medication trials: zyprexa - weight gain- - - - - -Consider: Lybalvi (zyprexa + naltrexone-like) if Abilify does not work; inc zoloft if still major depression [NOTE: any SSRI (e.g. prozac-displace, fluvoxamine-displace for psychotic/delusional D) or Effexor for depression (NICHOLAS) [can displace warfarin to inc bleeding risk] OR change to Trintillex; increase buspar for anxiety if needed. considre mirtazapine- FU: 10/07 1445. How is buspar working for anxiety? How is 15mg abilify working for AH? How is depression? STATES....nothing changed. Sleeping okay with cpap machine. Reports he is happy one minute and sad the next still. Depression the same, Anxiety is less. Still has AH. Current GOALS: PHQ9 - GAD7 - MDQ - NEGPCL5 - 50SIB, SI or HI: denies current.- - - -PLAN:- Target s/s: trauma/anxiety/depression, AH; CLAUDIA- Continue: - abilify but increase from 10mg to 15mg- sertraline 100mg PO qd (take 2 tabs daily) - helps in AM makes me happy - START: - abilify 15mg (was 10mg)- Buspar 5mg PO BID - Labs: Labs: Pt had them done at [facility]. Have not received them from [facility]. Pt will bring them in. CONTINUE TO CHECK INR- Referral to no one- Encouraged less EtOH, THC- Educated ADR/SEs of Abilify and Buspar, including serotonin s/s and when to go to the ER. Educated how EtOH and THC are working against his s/s and meds.- Consider: Lybalvi (zyprexa + naltrexone-like) if Abilify does not work; inc zoloft if still major depression [NOTE: any SSRI (e.g. prozac-displace, fluvoxamine-displace for psychotic/delusional D) or Effexor for depression (NICHOLAS) [can displace warfarin to inc bleeding risk] OR change to Trintillex; increase buspar for anxiety if needed- FU:How is inc of abilify to 20mg working for AH? how is anx, depression? A DDITIONAL INFORMATION [ 09-24-23] 37yo M presents for [facility] with mother. Last seen by 09-17-23. Hx of CLAUDIA, NICHOLAS, MDD, trauma. Symptom Hx of AH (current), severe anxiety, moderate depression. Drugs THC smoke daily x 20yrs., Tobacco__1__pk/d, EtOH__on many weekends, 12pk. C/C this visit is anxiety.---------Referred by: Kimberely BRITO - FMPsychiatrist? noTherapist/Support Gps (e.g BOOM)? noPCP? Kimberley Ray FMEKGs done at [facility] Allergies: Vit K. Compliant.- Abilify 10mg - helps with relaxing him in the AM then rubs away - Sertraline 100mg BID (take 200mg once daily) - mom says if he misses a dose he becomes very anxious [warfarin 5mg, clopidogrel 75mg, lasix 20mg] Previous medication trials: zyprexa - weight gain STATES....nothing changed. Sleeping okay with cpap machine. Reports he is happy one minute and sad the next. Current GOALS: PHQ9 - 16/21GAD7 - 19/19MDQ - NEGSIB, SI or HI: denies current.- - - -PLAN:- Target s/s: trauma/anxiety/depression, AH; CLAUDIA- Continue: - abilify but increase from 10mg to 15mg incorease to 20mg- sertraline 100mg PO qd (take 2 tabs daily) - START: - abilify 20mg (was 15mg)- Buspar 5mg PO BID - Labs: Labs: Pt had them done at [facility]. Have not received them from [facility]. Pt will bring them in. CONTINUE TO CHECK INR- Referral to no one- Encouraged less EtOH, THC- Educated ADR/SEs of Abilify and Buspar, including serotonin s/s and when to go to the ER. Educated how EtOH and THC are working against his s/s and meds.- Consider: Lybalvi (zyprexa + naltrexone-like) if Abilify does not work; inc zoloft if still major depression [NOTE: any SSRI (e.g. prozac-displace, fluvoxamine-displace for psychotic/delusional D) or Effexor for depression (NICHOLAS) [can displace warfarin to inc bleeding risk] OR change to Trintillex; increase buspar for anxiety if needed- FU: 2 weeks. How is buspar working for anxiety? well. How is 20mg abilify working for AH? How is depression? A DDITIONAL INFORMATION [ NEW PATIENT INTAKE 09-17-23]37yo M presents for Behavioral Health evaluation as a new patient with mother. Last seen by never. Hx of CLAUDIA, NICHOLAS, MDD, trauma. Symptom Hx of AH (current), severe anxiety, moderate depression. Drugs THC smoke daily x 20yrs., Tobacco__1__pk/d, EtOH__on many weekends, 12pk. C/C this visit is to establish care. Top patient priority is anxiety.---------Referred by: Kimberley BRITO - FMPsychiatrist? noTherapist/Support Gps (e.g BOOM)? noPCP? Kimberley BRITO - FMEKGs done at [facility] Allergies: Vit K. Compliant.- Abilify 10mg - helps with relaxing him in the AM then rubs away - Sertraline 100mg BID (take 200mg once daily) - mom says if he misses a dose he becomes very anxious [warfarin 5mg, clopidogrel 75mg, lasix 20mg] Previous medication trials: zyprexa - weight gain- - - - - -STATES....... my medicine isn't helping me anymore . Would like anxiety control throughout the day. Endorses anxiety beginning in teens, depression beginning 16yo, AH beginning 2yrs ago (after meth use x 2yrs). STRESSORS: Lost dad and grandpa within last 2mths. 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 Got 16yo, then baby at 3mths of SIDS, then divorce. Anxiety: about everything, can't sit in one spot, up and down all night, just got CPAP so sleep slightly better now. Recent history of no sleep, and eating around the clock but better now with sleeping. Depression: nothing can make me happy endorses loosing interests in hobbies, eats more, sleeps less. Present all the time constant without more severe episodes. Began doing drugs in HS; states d/t his depression. EtOH drink and drove before 20yo so lost license. Still wanted a drug so went to meth x 2yrs. Paranoia/Delusions: I think about cameras watching me sometimes A/V hallucinations: shadows out of corner of eyes very frequently. Goes on and off a little bit . Persecutory voices don't like me, against me. Frequently in afternoon and just after getting up, most of the day or when I think to much. x a couple of years (after meth) but not before then. Current GOALS: getting back to a routine so I can go back to work; sleeping and everything right PHQ9 - 21GAD7 - 19MDQ - NEGPCL5 - n/aDepression: 8/10 with 10 being the worstAnxiety: 10/10 with 10 being the worstAnger/Irritability: 0/10 with 10 being the worstSIB, SI or HI: denies current. denies Labs: Will order for today, including INR- - - -PLAN:- Target s/s: trauma/anxiety/depression, AH; CLAUDIA- Continue:- abilify 10mg PO qd- sertraline 100mg PO qd (take 2 tabs daily)- Start: nothing at this time- Labs: Ordered today, including INR- Referral to no one- Encouraged less EtOH, THC- Consider: Buspar and/or hydroxyzine for anxiety; any (e.g. prozac-displace, fluvoxamine-displace for psychotic/delusional D) or Effexor for depression (NICHOLAS) [can displace warfarin to inc bleeding risk]; inc abilify to 15mg/d OR switch to brexpiprazole (rexulti) for SCHZ/TxRD (WG, TD) OR add low dose risperidone for SCHZ- FU: 09/23 151. Provide med plan for depression/anxiety. How is AH now on Abilify? Decrease in EtOH, THC? -------CURRENT SYMPTOMSSleep: better with CPAP, gets up a couple times a night and a daytime napAppetite: trying to diet, appetite is good Meghan?:Bipolar 1 disorder (3 or more)Increased talkativenessHeightened self-esteem or grandiosity - noDecreased need for sleep - noIncreased energy, goal-oriented activities, or irritabilityRacing thoughts - my mind changes a bunch - just a couple of yearsDecreased attention span - yes hard to concentrateIncreased risk-taking behaviors - suazo in the past Guns in home: yes, locked (hunts and fishes)Effective coping strategies/Social Support: mom, sister PMHMedical/surgical history: ND 01/2023 (2 stents), 1998 aortic valve replacement, CHF as of 04/2023; HTN; baby double hernia; tonsillectomysz?: notbi?:no Inpatient psychiatric hospitalizations: 1998 for meth x 2SA (when, where, how): noLabs->Will order today Social [facility]; living with mom and dad most of lifeDv x 1 __2__kids two different moms (12, 20) Has relationship with the children but younger one wittnessed meth so she is still scared of himEmployment: 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 Tobacco__1__pk/d, EtOH__on many weekends, 12pk ; Caffeine: 1 cup/d Hx meth TraumaBorn? [place] Raised by? Mom/Dad. Childhood awesome until heart surgery = 1st child, 1st grandchild, spoiledAbuse - physical, who? noemotional, who? nosexual, who? age? noneglect/abandonment? no Family History (MH/Drugs/EtOH/SA)Mom: anxiety, depressionDad: stableSister: anxiety (takes xanax)M. Grandfather: anxiety, depression, EtOHM. Grandmother: anxiety, depressionM. Aunt: anxiety, depressionM. Uncle: anxiety, depression, EtOH EJ HENDRIX-ARELI VILLEGAS, [employer] PROFESSOR-C Attn: Accounting,[address] [place], [id number], [facility] 11/05/2023 21:31:11 4 text/html 37yo M presents for [facility] with mother. Hx of CLAUDIA, NICHOLAS, MDD, trauma. Symptom Hx of AH (current), severe anxiety, moderate depression. Drugs THC smoke daily x 20yrs., Tobacco__1__pk/d, EtOH__on many weekends, 12pk. C/C this visit is psychosis (AH, paranoia).---------Referred by: Kimberley BRITO - FMPsychiatrist? noTherapist/Support Gps (e.g BOOM)? noPCP? Kimberley BRITO - FMEKGs done at [facility] Allergies: Vit K. Compliant. - abilify 20mg PO Qd - helps with relaxing him in the AM then rubs away - sertraline 100mg PO qd (take 2 tabs daily) - helps in AM makes me happy ; mom says if he misses a dose he becomes very anxious- buspar 5mg PO BID - Pt is taking PRN and feels it helps this way (takes 1/d) [warfarin 5mg, clopidogrel 75mg, lasix 20mg] Previous medication trials: zyprexa - weight gain- - -How is inc of abilify to 20mg working for AH? how is anx, depression?Educated how EtOH and THC are working against his s/s and meds.- Consider: inc zoloft if still major depression [NOTE: any SSRI (e.g. prozac-displace, fluvoxamine-displace for psychotic/delusional D) or Effexor for depression (NICHOLAS) [can displace warfarin to inc bleeding risk] OR change to Trintillex; increase buspar for anxiety if needed- FU: How is paranoia and AH? How is tapering on Abilify going? How is depression? STATES....still hears voices 1-2x/wk which is less than before. Is going to see daughter 21yo in [place] to stay for at least 2months. Will fly out in a week or two. states anxiety and depression are okay. Reports he is sleeping well. (prev - things are about the same. Still hears some muffled voices. will begin taking buspar bid instead of qd for anxiety. Will notify Pt when lybalvi approval comes in. ) (prev visit - hears voices every couple of days lasting most of the day, clear voices saying they want to steal stuff. Reports feeling better .....happier...can get sleep now...states takes buspar PRN and it helps calms his anxiety, says anxiety is good. Mom bought new padlock for front door Pt is still afraid people will steal his tools and any thing that a pawn shop would take. States he is using less THC now, not daily. Reports still smoking tobacco.; would like to decrease. Denies opioid use. )(nothing changed. Sleeping okay with cpap machine. Reports he is happy one minute and sad the next still. Depression the same, Anxiety is less. Still has AH.) PHQ9 - 10/19/12GAD7 - 26/11/12MDQ - NEGPCL5 - 50 Depression: 09/19//11/23 with 10 being the worstAnxiety: 08/18/08/23/09 with 10 being the worstAnger/Irritability: with 10 being the worstSIB, SI or HI: denies current today 12/02- - - -PLAN:- Target s/s: psychosis (AH, paranoia), trauma/anxiety/depression; CLAUDIA- Continue: - abilify 20mg PO Qd- sertraline 100mg PO qd (take 2 tabs daily)- buspar 5mg PO BID - START: abilify 5mg for continued AH - NOTE: Lybalvi 5mg/10mg - PA was denied. * Need to fail all of these: ANTIPSYCHOTIC MEDICATIONSHaloperidol, Aripiprazole, Olanzapine, Quetiapine, Risperidone- *Provided Pt with 90 day refills of all MH meds for his move to [place]- Labs: Labs: 09-20-23 A1C 6.0. CONTINUE TO CHECK INR- Referral to no one- Encouraged less EtOH, THC- Educated ADR/SEs of Buspar, including serotonin s/s, NMS, DRESS and when to go to the ER. Educated how EtOH and THC are working against his s/s and meds.- Consider: anoter SGA if Abilify does not work; inc zoloft if still major depression [NOTE: any SSRI (e.g. prozac-displace, fluvoxamine-displace for psychotic/delusional D) or Effexor for depression (NICHOLAS) [can displace warfarin to inc bleeding risk] OR change to Trintillex; increase buspar for anxiety if needed- FU: 3 mths. How was [place]? Need med refills? How is AH with extra 5mg abilify? How is paranoia that people will steal his things? ADDIT IONAL INFORMATION 24: 37yo M presents for [facility] with mother. Hx of CLAUDIA, NICHOLAS, MDD, trauma. Symptom Hx of AH (current), severe anxiety, moderate depression. Drugs THC smoke daily x 20yrs., Tobacco__1__pk/d, EtOH__on many weekends, 12pk. C/C this visit is psychosis (AH, paranoia).---------Referred by: Kimberley BRITO - FMPsychiatrist? noTherapist/Support Gps (e.g BOOM)? noPCP? Kimberley BRITO - FMEKGs done at [facility] Allergies: Vit K. Compliant. - abilify 20mg PO Qd - helps with relaxing him in the AM then rubs away - sertraline 100mg PO qd (take 2 tabs daily) - helps in AM makes me happy ; mom says if he misses a dose he becomes very anxious- buspar 5mg PO BID - Pt is taking PRN and feels it helps this way (takes 1/d) [warfarin 5mg, clopidogrel 75mg, lasix 20mg] Previous medication trials: zyprexa - weight gain- - -How is inc of abilify to 20mg working for AH? how is anx, depression? STATES....things are about the same. Still hears some muffled voices. will begin taking buspar bid instead of qd for anxiety. Will notify Pt when lybalvi approval comes in. (prev visit - hears voices every couple of days lasting most of the day, clear voices saying they want to steal stuff. Reports feeling better .....happier...can get sleep now...states takes buspar PRN and it helps calms his anxiety, says anxiety is good. Mom bought new padlock for front door Pt is still afraid people will steal his tools and any thing that a pawn shop would take. States he is using less THC now, not daily. Reports still smoking tobacco.; would like to decrease. Denies opioid use. )(nothing changed. Sleeping okay with cpap machine. Reports he is happy one minute and sad the next still. Depression the same, Anxiety is less. Still has AH.) PHQ9 - 08/20//GAD7 - /26/11/12MDQ - NEGPCL5 - 50 Depression: with 10 being the worst - last assessed nxiety: 08/18/09 with 10 being the worstAnger/Irritability: with 10 being the worstSIB, SI or HI: denies current today- - - -PLAN:- Target s/s: psychosis (AH, paranoia), trauma/anxiety/depression; CLAUDIA- Continue: - abilify 20mg PO Qd- sertraline 100mg PO qd (take 2 tabs daily)- buspar 5mg PO BID - has been taking qd, will now take BID - START (when PA is approved): - Lybalvi 5mg/10mg - Ordered this med but will require a PA. Waiting for insurance company to kickback to the order to see what med trials are needed before beginning Lybalvi. Provided Pt with 2 weeks of samples last visit with instruction to not begin taking them until he hears from this provider (who will review the med trial requirements first). - Labs: Labs: 09-20-23 A1C 6.0. CONTINUE TO CHECK INR- Referral to no one- Encouraged less EtOH, THC- Educated ADR/SEs of Lybalvi and Buspar, including serotonin s/s, NMS, DRESS and when to go to the ER. Educated how EtOH and THC are working against his s/s and meds.- Consider: Lybalvi (zyprexa + naltrexone-like) if Abilify does not work; inc zoloft if still major depression [NOTE: any SSRI (e.g. prozac-displace, fluvoxamine-displace for psychotic/delusional D) or Effexor for depression (NICHOLAS) [can displace warfarin to inc bleeding risk] OR change to Trintillex; increase buspar for anxiety if needed- FU: IF started lybalvi, then did you get INR 4 days after starting? How is paranoia and AH? How is tapering on Abilify going? How is depression? A DDITIONAL INFORMATION 10-21-24: 37yo M presents for FU with mother. Hx of CLAUDIA, NICHOLAS, MDD, trauma. Symptom Hx of AH (current), severe anxiety, moderate depression. Drugs THC smoke daily x 20yrs., Tobacco__1__pk/d, EtOH__on many weekends, 12pk. C/C this visit is psychosis (AH, paranoia).---------Referred by: Kimberley BRITO - FMPsychiatrist? noTherapist/Support Gps (e.g BOOM)? noPCP? Kimberley Ray FMEKGs done at [facility] Allergies: Vit K. Compliant.- Abilify 10mg - helps with relaxing him in the AM then rubs away - Sertraline 100mg BID (take 200mg once daily) - mom says if he misses a dose he becomes very anxious [warfarin 5mg, clopidogrel 75mg, lasix 20mg] Previous medication trials: zyprexa - weight gain- - - - - -Consider: Lybalvi (zyprexa + naltrexone-like) if Abilify does not work; inc zoloft if still major depression [NOTE: any SSRI (e.g. prozac-displace, fluvoxamine-displace for psychotic/delusional D) or Effexor for depression (NICHOLAS) [can displace warfarin to inc bleeding risk] OR change to Trintillex; increase buspar for anxiety if needed. consider mirtazapine. - FU: 10/07 1445. How is buspar working for anxiety? How is 15mg abilify working for AH? How is depression?- - -How is inc of abilify to 20mg working for AH? how is anx, depression? STATES....hears voices every couple of days lasting most of the day, clear voices saying they want to steal stuff. Reports feeling better .....happier...can get sleep now...states takes buspar PRN and it helps calms his anxiety, says anxiety is good. Mom bought new padlock for front door Pt is still afraid people will steal his tools and any thing that a pawn shop would take. States he is using less THC now, not daily. Reports still smoking tobacco.; would like to decrease. Denies opioid use. (nothing changed. Sleeping okay with cpap machine. Reports he is happy one minute and sad the next still. Depression the same, Anxiety is less. Still has AH.) PHQ9 - 09/27/15GAD7 - 11/26/18MDQ - NEGPCL5 - 50 Depression: 10 with 10 being the worst - last assessed today 7/8Anxiety: 08/23/10 with 10 being the worstAnger/Irritability: 3/0/10 with 10 being the worstSIB, SI or HI: denies current.- - - -PLAN:- Target s/s: psychosis (AH, paranoia), trauma/anxiety/depression; CLAUDIA- Continue: - abilify 20mg PO Qd- sertraline 100mg PO qd (take 2 tabs daily) - helps in AM makes me happy - buspar 5mg PO BID - Pt is taking PRN and feels it helps this way - START: - Lybalvi 5mg/10mg - Ordered this med but will require a PA. Waiting for the pharmacy kickback to the order to see what med trials are needed before beginning Lybalvi. Provided Pt with 2 weeks of samples with instruction to not begin taking them until he hears from this provider (who will review the med trial requirements first). - Labs: Labs: Pt had them done at [facility]. Have not received them from [facility]. Pt will bring them in. CONTINUE TO CHECK INR- Referral to no one- Encouraged less EtOH, THC- Educated ADR/SEs of Lybalvi and Buspar, including serotonin s/s, NMS, DRESS and when to go to the ER. Educated how EtOH and THC are working against his s/s and meds.- Consider: Lybalvi (zyprexa + naltrexone-like) if Abilify does not work; inc zoloft if still major depression [NOTE: any SSRI (e.g. prozac-displace, fluvoxamine-displace for psychotic/delusional D) or Effexor for depression (NICHOLAS) [can displace warfarin to inc bleeding risk] OR change to Trintillex; increase buspar for anxiety if needed- FU: IF started lybalvi, then did you get INR 4 days after starting? How is paranoia and AH? How is tapering on Abilify going? How is depression? A DDITIONAL INFORMATION [10-07-] 37yo M presents for FU with mother. Hx of CLAUDIA, NICHOLAS, MDD, trauma. Symptom Hx of AH (current), severe anxiety, moderate depression. Drugs THC smoke daily x 20yrs., Tobacco__1__pk/d, EtOH__on many weekends, 12pk. C/C this visit is anxiety.---------Referred by: Kimberley BRITO - FMPsychiatrist? noTherapist/Support Gps (e.g BOOM)? noPCP? Kimberley BRITO - FMEKGs done at [facility] Allergies: Vit K. Compliant.- Abilify 10mg - helps with relaxing him in the AM then rubs away - Sertraline 100mg BID (take 200mg once daily) - mom says if he misses a dose he becomes very anxious [warfarin 5mg, clopidogrel 75mg, lasix 20mg] Previous medication trials: zyprexa - weight gain- - - - - -Consider: Lybalvi (zyprexa + naltrexone-like) if Abilify does not work; inc zoloft if still major depression [NOTE: any SSRI (e.g. prozac-displace, fluvoxamine-displace for psychotic/delusional D) or Effexor for depression (NICHOLAS) [can displace warfarin to inc bleeding risk] OR change to Trintillex; increase buspar for anxiety if needed. considre mirtazapine- FU: 10/07 1445. How is buspar working for anxiety? How is 15mg abilify working for AH? How is depression? STATES....nothing changed. Sleeping okay with cpap machine. Reports he is happy one minute and sad the next still. Depression the same, Anxiety is less. Still has AH. Current GOALS: PHQ9 - GAD7 - MDQ - NEGPCL5 - 50SIB, SI or HI: denies current.- - - -PLAN:- Target s/s: trauma/anxiety/depression, AH; CLAUDIA- Continue: - abilify but increase from 10mg to 15mg- sertraline 100mg PO qd (take 2 tabs daily) - helps in AM makes me happy - START: - abilify 15mg (was 10mg)- Buspar 5mg PO BID - Labs: Labs: Pt had them done at [facility]. Have not received them from [facility]. Pt will bring them in. CONTINUE TO CHECK INR- Referral to no one- Encouraged less EtOH, THC- Educated ADR/SEs of Abilify and Buspar, including serotonin s/s and when to go to the ER. Educated how EtOH and THC are working against his s/s and meds.- Consider: Lybalvi (zyprexa + naltrexone-like) if Abilify does not work; inc zoloft if still major depression [NOTE: any SSRI (e.g. prozac-displace, fluvoxamine-displace for psychotic/delusional D) or Effexor for depression (NICHOLAS) [can displace warfarin to inc bleeding risk] OR change to Trintillex; increase buspar for anxiety if needed- FU:How is inc of abilify to 20mg working for AH? how is anx, depression? A DDITIONAL INFORMATION [ 09-24-23] 37yo M presents for FU with mother. Last seen by 09-17-23. Hx of CLAUDIA, NICHOLAS, MDD, trauma. Symptom Hx of AH (current), severe anxiety, moderate depression. Drugs THC smoke daily x 20yrs., Tobacco__1__pk/d, EtOH__on many weekends, 12pk. C/C this visit is anxiety.---------Referred by: Kimberley BRITO - FMPsychiatrist? noTherapist/Support Gps (e.g BOOM)? noPCP? Kimberley Ray FMEKGs done at [facility] Allergies: Vit K. Compliant.- Abilify 10mg - helps with relaxing him in the AM then rubs away - Sertraline 100mg BID (take 200mg once daily) - mom says if he misses a dose he becomes very anxious [warfarin 5mg, clopidogrel 75mg, lasix 20mg] Previous medication trials: zyprexa - weight gain STATES....nothing changed. Sleeping okay with cpap machine. Reports he is happy one minute and sad the next. Current GOALS: PHQ9 - 16/21GAD7 - 19/19MDQ - NEGSIB, SI or HI: denies current.- - - -PLAN:- Target s/s: trauma/anxiety/depression, AH; CLAUDIA- Continue: - abilify but increase from 10mg to 15mg incorease to 20mg- sertraline 100mg PO qd (take 2 tabs daily) - START: - abilify 20mg (was 15mg)- Buspar 5mg PO BID - Labs: Labs: Pt had them done at [facility]. Have not received them from [facility]. Pt will bring them in. CONTINUE TO CHECK INR- Referral to no one- Encouraged less EtOH, THC- Educated ADR/SEs of Abilify and Buspar, including serotonin s/s and when to go to the ER. Educated how EtOH and THC are working against his s/s and meds.- Consider: Lybalvi (zyprexa + naltrexone-like) if Abilify does not work; inc zoloft if still major depression [NOTE: any SSRI (e.g. prozac-displace, fluvoxamine-displace for psychotic/delusional D) or Effexor for depression (NICHOLAS) [can displace warfarin to inc bleeding risk] OR change to Trintillex; increase buspar for anxiety if needed- FU: 2 weeks. How is buspar working for anxiety? well. How is 20mg abilify working for AH? How is depression? A DDITIONAL INFORMATION [ NEW PATIENT INTAKE 09-17-23]37yo M presents for Behavioral Health evaluation as a new patient with mother. Last seen by never. Hx of CLAUDIA, NICHOLAS, MDD, trauma. Symptom Hx of AH (current), severe anxiety, moderate depression. Drugs THC smoke daily x 20yrs., Tobacco__1__pk/d, EtOH__on many weekends, 12pk. C/C this visit is to establish care. Top patient priority is anxiety.---------Referred by: Kimberley BRITO - FMPsychiatrist? noTherapist/Support Gps (e.g BOOM)? noPCP? Kimberley BRITO - FMEKGs done at [facility] Allergies: Vit K. Compliant.- Abilify 10mg - helps with relaxing him in the AM then rubs away - Sertraline 100mg BID (take 200mg once daily) - mom says if he misses a dose he becomes very anxious [warfarin 5mg, clopidogrel 75mg, lasix 20mg] Previous medication trials: zyprexa - weight gain- - - - - -STATES....... my medicine isn't helping me anymore . Would like anxiety control throughout the day. Endorses anxiety beginning in teens, depression beginning 16yo, AH beginning 2yrs ago (after meth use x 2yrs). STRESSORS: Lost dad and grandpa within last 2mths. 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 Got 16yo, then baby at 3mths of SIDS, then divorce. Anxiety: about everything, can't sit in one spot, up and down all night, just got CPAP so sleep slightly better now. Recent history of no sleep, and eating around the clock but better now with sleeping. Depression: nothing can make me happy endorses loosing interests in hobbies, eats more, sleeps less. Present all the time constant without more severe episodes. Began doing drugs in HS; states d/t his depression. EtOH drink and drove before 20yo so lost license. Still wanted a drug so went to meth x 2yrs. Paranoia/Delusions: I think about cameras watching me sometimes A/V hallucinations: shadows out of corner of eyes very frequently. Goes on and off a little bit . Persecutory voices don't like me, against me. Frequently in afternoon and just after getting up, most of the day or when I think to much. x a couple of years (after meth) but not before then. Current GOALS: getting back to a routine so I can go back to work; sleeping and everything right PHQ9 - 21GAD7 - 19MDQ - NEGPCL5 - n/aDepression: 11/23 with 10 being the worstAnxiety: 10/10 with 10 being the worstAnger/Irritability: 0/10 with 10 being the worstSIB, SI or HI: denies current. denies Labs: Will order for today, including INR- - - -PLAN:- Target s/s: trauma/anxiety/depression, AH; CLAUDIA- Continue:- abilify 10mg PO qd- sertraline 100mg PO qd (take 2 tabs daily)- Start: nothing at this time- Labs: Ordered today, including INR- Referral to no one- Encouraged less EtOH, THC- Consider: Buspar and/or hydroxyzine for anxiety; any (e.g. prozac-displace, fluvoxamine-displace for psychotic/delusional D) or Effexor for depression (NICHOLAS) [can displace warfarin to inc bleeding risk]; inc abilify to 15mg/d OR switch to brexpiprazole (rexulti) for SCHZ/TxRD (WG, TD) OR add low dose risperidone for SCHZ- FU: 09/23 1515. Provide med plan for depression/anxiety. How is AH now on Abilify? Decrease in EtOH, THC? -------CURRENT SYMPTOMSSleep: better with CPAP, gets up a couple times a night and a daytime napAppetite: trying to diet, appetite is good Meghan?:Bipolar 1 disorder (3 or more)Increased talkativenessHeightened self-esteem or grandiosity - noDecreased need for sleep - noIncreased energy, goal-oriented activities, or irritabilityRacing thoughts - my mind changes a bunch - just a couple of yearsDecreased attention span - yes hard to concentrateIncreased risk-taking behaviors - suazo in the past Guns in home: yes, locked (hunts and fishes)Effective coping strategies/Social Support: mom, sister PMHMedical/surgical history: ND 01/2023 (2 stents), 1999 aortic valve replacement, CHF as of 04/2023; HTN; baby double hernia; tonsillectomysz?: notbi?:no Inpatient psychiatric hospitalizations: 1998 for meth x 2SA (when, where, how): noLabs->Will order today Social [facility]; living with mom and dad most of lifeDv x 1 __2__kids two different moms (12, 20) Has relationship with the children but younger one wittnessed meth so she is still scared of himEmployment: 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 Tobacco__1__pk/d, EtOH__on many weekends, 12pk ; Caffeine: 1 cup/d Hx meth TraumaBorn? [place] Raised by? Mom/Dad. Childhood awesome until heart surgery = 1st child, 1st grandchild, spoiledAbuse - physical, who? noemotional, who? nosexual, who? age? noneglect/abandonment? no Family History (MH/Drugs/EtOH/SA)Mom: anxiety, depressionDad: stableSister: anxiety (takes xanax)M. Grandfather: anxiety, depression, EtOHM. Grandmother: anxiety, depressionM. Aunt: anxiety, depressionM. Uncle: anxiety, depression, EtOH EJ [facility], [employer] Attn: Accounting,[address] [place], [id number], [facility] 12/03/2023 20:50:03 5 text/html Guero is here with mom for f/u on health conditions last seen 09/2023 cardio: taking warfarin 5mg daily and has not had INR since february. on chart review INR was 10 and was managed in hospital. Has not followed up with [facility]. denies cp, sob, palpitations. psych: He took himself all his psych medications last year and is only taking sertraline 200mg. He states he no longer hears voices, sleeping much better with cpap and denies depression, anxiety, SI/HI. hallucinations of any kind. He is still not working. He wants job but does not have drivers license due to losing it many years ago after DWI. smoker: 04/19 ppd He has been wheezing and continues to smoke. DARYL PYLE Attn: Accounting,[address] [facility], [place], [address], [facility] 06/08/2024 19:41:41
--- OUTSIDE RECORDS SUMMARY | 2024-08-19 17:47 | XMS_ITS | CONTINUITY OF CARE DOCUMENT ---
Author Name pepper yogeshdinah Address Unknown Organization [facility] Address [address] [place] [address] Phone [phone] Care Team Providers Care System Specialist Name Role Phone Lane Alfred MD Unavailable [phone] KEVIN WILL PA-C Unavailable NICOLETTECORINNE PRIETO, KEVIN Boo Unavailable PROBLEMS Condition Status Date Provider Notes printer repair technician anticoagulant therapy active Abdon Major Cardiology examination active Lane Worley Aortic valve replacement, [facility] (1998) active Lane Alfred MD Tobacco abuse active Lane Alfred MD HTN essential active Lane Alfred MD Hyperlipidemia active Lane Alfred MD Obesity active Radha Larry Leg edema, bilateral active Kiko Nelson Myocardial Infarction - 2 st ents RCA 01/2023 active Kiko Nelson CHF active Kiko Nelson ENCOUNTERS Date Type Provider Location Encounter Diag nosis - In-person encounter Office Visit Lane Alfred MD [facility] - In-person encounter Office Visit Lane Alfred MD [facility] Leg edema, bilateralMyocardial Infarction - 2 stents RCA HF - In-person encounter Office Visit Lane Alfred MD [facility] Cardiology examinationAortic valve replacement, metallic (1998)Tobacco abuseHTN essentialHyperlipidemiaObesity VITAL SIGNS Date Observation Value Provider Body Mass Index (Ratio) 42.13 kg/m2 Ria Vasquezri blood pressure, cuff size regular Ja rret blood pressure, diastolic 76 mm[Hg] Ja rret blood pressure, systolic 124 mm[Hg] [facility] pulse rate 94 /min David respiratory rate E&M 16 /min David oxygen saturation, oximetry 96 % David weight E&M 269 [lb_av] David y height E&M 67 [in_i] [facility] y Body Mass Index (Ratio) 42.44 kg/m2 Ria Shearerinari blood pressure, diastolic 82 mm[Hg] Li [facility] blood pressure, systolic 118 mm[Hg] Gisela [facility] respiratory rate E&M 16 /min Carlie Gordon illelorelei pulse rate 94 /min [facility] blood pressure, cuff size regular [facility] blood pressure, diastolic 82 mm[Hg] [facility] blood pressure, systolic 118 mm[Hg] [facility] oxygen saturation, oximetry 96 % [facility] weight E&M 271 [lb_av] [facility] height E&M 67 [in_i] [facility] Body Mass Index (Ratio) 31.63 kg/m2 Luil Larry blood pressure, diastolic 102 mm[Hg] Li [facility] blood pressure, systolic 160 mm[Hg] Gisela [facility] blood pressure, diastolic 102 mm[Hg] Sa ra Lopez blood pressure, systolic 160 mm[Hg] Ari a Lopez respiratory rate E&M 18 /min Cindy Si ms oxygen saturation, oximetry 97 % Cindy Lopez pulse rate 73 /min Cindy Lopez weight E&M 202 [lb_av] Cindy Lopez height E&M 67 [in_i] Cindy Lopez blood pressure, cuff size regular ra Lopez ALLERGIES Allergy Name Onset Date Reaction Criticality Status PHYTONADIONE Unknown High Criticality active RESULTS Date Observation Value Provider Reference Range Interpretation Location c-reactive protein, quantitative, serum 10.70 mg/L [facility] 0.00-3.00 High microalbumin/crea tinine ratio, urine 23 MG/G CREAT [facility] 0-29 microalbumin, random, urine 2.18 mg/dL [facility] Units converted. See lab report for original value. creatinine, random, urine 94.6 mg/dL [facility] Not Estab. pro brain natriuretic peptide 47 pg/mL [facility] 0-86 lipoprotein, beta, serum, point, quantitative, calculated 124 mg/dL [facility] 0-99 High HDL cholesterol, serum 56 mg/dL [facility] >39 triglyceride, serum, random 164 mg/dL [facility] 0-149 High cholesterol, serum 209 mg/dL [facility] 100-199 High calcium, serum 9.8 mg/dL [facility] 8.7-10.2 carbon dioxide, venous blood 26 mmol/L [facility] 20-29 chloride, serum 96 mmol/L [facility] 96-106 potassium, serum 3.9 mmol/L [facility] 3.5-5.2 sodium, serum 139 mmol/L [facility] 250-176 0413/02/ 09 urea nitrogen/creatini ne ratio, serum 14 [facility] 9-20 creatinine, serum 0.95 mg/dL [facility] 0.76-1.27 urea nitrogen, blood 13 mg/dL [facility] 6-20 blood glucose, random 86 mg/dL [facility] 70-99 hemoglobin A1C, blood, as % of total hemoglobin 5.7 % [facility] 4.8-5.6 High international normalized ratio (INR) 8.0 Viji Major High coagulation managed by Viji Major HISTORY OF MEDICATION USE Medication Status Instructions Dates Provider Indications Com ments potassium chloride 20 mEq tablet,ER particles/crystal s active Take 1 tablet by mouth once daily Virgilio Sidhu potassium chloride 20 mEq tablet,ER particles/crystal s completed TAKE 1 BY MOUTH ONCE DAILY - Virgilio Sidhu spironolactone 25 mg tablet active Take 1 tablet by mouth once daily Virgilio Sidhu furosemide 20 mg tablet active Take 1 tablet by mouth once daily Virgilio Sidhu clopidogrel 75 mg tablet active Sonia Weldon NP potassium chloride 20 mEq tablet extended release completed Take 1 tablet by mouth once a day - [facility] PA Specialist spironolactone 25 mg tablet completed Take 1 tablet by mouth once a day - [facility] Specialist potassium chloride 20 mEq tablet extended release completed TAKE 1 TABLET BY MOUTH ONCE DAILY - Lesley Hernandez furosemide 20 mg tablet completed Take 1 tablet by mouth once a day - [facility] Special[facility] carvedilol 3.125 mg tablet active TAKE 1 TABLET BY MOUTH TWICE DAILY Sonia Weldon NP spironolactone 25 mg tablet completed - Lesley Hernandez isosorbide mononitrate 30 mg tablet extended release 24 hr active Take 1 tablet by mouth once a day Sonia Weldon NP losartan 25 mg tablet active Take 1 tablet by mouth once a day Sonia Weldon NP sertraline 100 mg tablet active 2 tablet by mouth once a day Sonia Millanmian RAYO warfarin 5 mg tablet active Cindy Lopez famotidine 20 mg tablet active TAKE ONE TABLET BY MOUTH TWICE DAILY Sonia Millanmian RAYO propranolol 40 mg tablet active Cindy Picketts olanzapine 10 mg tablet active 1 tablet by mouth once a day Sonia Millanmian RAYO hydralazine 25 mg tablet active TAKE 1 TABLET BY MOUTH EVERY DAY Sonia Millanmian RAYO amlodipine 5 mg tablet active TAKE 1 Tablet BY MOUTH EVERY DAY Sonia Millanmian RAYO atorvastatin 80 mg tablet active TAKE 1 TABLET BY MOUTH DAILY Sonia Millanmian RAYO SOCIAL HISTORY Date Observation Value Provider personal history of marijuana use yes Sonia Fatemeh RAYO drug use no Sonia Fatemeh RAYO alcohol use no Sonia Millanmian RAYO smoking history, tot al pack/day 1/2 Sonia Fatemeh RAYO cigarette use yes oSnia Weldon NP smoking status Current every day smoker V pegkristine Weldon NP smoking history, tot al pack/day 1/2 Carlie Scott cigarette use yes Carlie Scott smoking status Current every day smoker F koby Scott social history E&M S moking History: P fiorella currently smokes every day. Lane Alfred MD social history reviewed E&M revi ewed - no changes required Lane Alfred MD smoking history, tot al pack/day 1/2 Cindy Lopez cigarette use yes Cindy Lopez smoking status Current every day smoker S rolando Lopez FUNCTIONAL STATUS Date Observation Value Provider HRA, CV Assess/Plan, Angina (inactive) Management Plan continue current therapy Tasiagisela Fatemeh RAYO HRA, CV Assess/Plan, Angina (inactive) Management Plan continue current therapy Kiko Nelson INSURANCE PROVIDERS Payer name Policy type / Coverage type [employer] red democrat ID [facility] [id number] ADVANCE DIRECTIVES Name Date DISCUSSED - NO DECISION MADE TREATMENT PLAN Date Name Performer [id number],C,T he Patient was reencouraged to stop smoking. Radha Larry [id number],C, H is updated medication list for this problem includes: Atorvastatin 20 Mg Tablet (Atorvastatin) Radha Larry [id number],C, B P today: 160/102 His updated medication list for this problem includes: Propranolol 40 Mg Tablet (Propranolol) Hydralazine 25 Mg Tablet (Hydralazine) Amlodipine 5 Mg Tablet (Amlodipine) Radha Larry [id number],C,T He pt has hx of congenital heart disease. He had aortic valve replacement (metallic) at [facility] in 1998. 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 He would like to follow with us. Will obtain an echo and obtain records from his prior box office attendant. Radha Nayakbre Cardiology: T He pt has hx of congenital heart disease. He had aortic valve replacement (metallic) at [facility] in 1998. n ml appearing and functioning mechanical aortic valve per last echo 05/2023. Sonia Weldon NP Cardiology: P t had a NM and 2 stents placed in RCA in January [address] [facility] in [facility]. Sonia Weldon NP Cardiology: c omplete cessation encouraged Sonia Weldon NP Cardiology: V enous dopplers 05/2023 CONCLUSIONS: 1 . No evidence of a deep vein thrombosis of the lower extremities bilaterally. 2 . Significant venous insufficiency of the great saphenous vein bilaterally. D iscussed with patient need to use compression stockings and continue Lasix. C onsider further intervention if no improvement in symptoms with use of compression stockings. Sonia Weldon NP Cardiology: B P today: 124/76 P rior BP: 118/82 (05/14/2023) His updated medication list for this problem includes: Carvedilol 3.125 Mg Tablet (Carvedilol) ..... Take 1 tablet by mouth twice daily Amlodipine 5 Mg Tablet (Amlodipine) ..... Take 1 tablet by mouth every day Hydralazine 25 Mg Tablet (Hydralazine) ..... Take 1 tablet by mouth every day Losartan 25 Mg Tablet (Losartan) ..... Take 1 tablet by mouth once a day Furosemide 20 Mg Tablet (Furosemide) ..... Take 1 tablet by mouth once a day Spironolactone 25 Mg Tablet (Spironolactone) ..... Take 1 tablet by mouth once a day Propranolol 40 Mg Tablet (Propranolol) Sonia Millanmian PRODUCT PICKER Cardiology: H is updated medication list for this problem includes: Atorvastatin 80 Mg Tablet (Atorvastatin) ..... Take 1 tablet by mouth daily C HOL: 209 (05/25/2023) LDL: 124 (05/25/2023) HDL: 56 (05/25/2023) T (05/25/2023) Tasiagisela Fatemeh RAYO Cardiology: l ast echo 05/2023 ef 60% c linically appears compensated H is updated medication list for this problem includes: Carvedilol 3.125 Mg Tablet (Carvedilol) ..... Take 1 tablet by mouth twice daily Amlodipine 5 Mg Tablet (Amlodipine) ..... Take 1 tablet by mouth every day Isosorbide Mononitrate 30 Mg Tablet Extended Release 24 Hr (Isosorbide mononitrate) ..... Take 1 tablet by mouth once a day Losartan 25 Mg Tablet (Losartan) ..... Take 1 tablet by mouth once a day Clopidogrel 75 Mg Tablet (Clopidogrel) Furosemide 20 Mg Tablet (Furosemide) ..... Take 1 tablet by mouth once a day Spironolactone 25 Mg Tablet (Spironolactone) ..... Take 1 tablet by mouth once a day Warfarin 5 Mg Tablet (Warfarin) Propranolol 40 Mg Tablet (Propranolol) Sonia Millanmian PRODUCT P[employer]ER Cardiology: B P today: 118/82 P rior BP: 160/102 (11/28/2021) His updated medication list for this problem includes: Furosemide 20 Mg Tablet (Furosemide) Carvedilol 3.125 Mg Tablet (Carvedilol) Spironolactone 25 Mg Tablet (Spironolactone) Losartan 25 Mg Tablet (Losartan) Propranolol 40 Mg Tablet (Propranolol) Hydralazine 25 Mg Tablet (Hydralazine) Amlodipine 5 Mg Tablet (Amlodipine) [facility]check venous doppler [facility] Cardiology: H is updated medication list for this problem includes: Atorvastatin 20 Mg Tablet (Atorvastatin) [facility] Patie nt was reencouraged to stop smoking. [facility] Cardiology:Pt had a NM and 2 stents placed in RCA in [address] [facility] in [facility]. He then admission in same hospital for CHF exacerbation last week. Denies CP. Reports improvement in SOB. Mild edema. He has hx of metallic AVR. Will obtain an echo, lab work, venous duplex of LE, and home sleep test. Strongly advised patient to stop smoking. H is updated medication list for this problem includes: Furosemide 20 Mg Tablet (Furosemide) Carvedilol 3.125 Mg Tablet (Carvedilol) Spironolactone 25 Mg Tablet (Spironolactone) Isosorbide Mononitrate 30 Mg Tablet Extended Release 24 Hr (Isosorbide mononitrate) Losartan 25 Mg Tablet (Losartan) Warfarin 5 Mg Tablet (Warfarin) Propranolol 40 Mg Tablet (Propranolol) Amlodipine 5 Mg Tablet (Amlodipine) [facility] Cardiology:Pt had a NM and 2 stents placed in RCA in [address] [facility] in [facility]. He then admission in same hospital for CHF exacerbation last week. Denies CP. Reports improvement in SOB. Mild edema. He has hx of metallic AVR. Will obtain an echo, lab work, venous duplex of LE, and home sleep test. Strongly advised patient to stop smoking. Kiko Nelson Cardiology:The Patie nt was reencouraged to stop smoking. Radha Larry Cardiology: H is updated medication list for this problem includes: Atorvastatin 20 Mg Tablet (Atorvastatin) Radha Larry Cardiology: B P today: 160/102 His updated medication list for this problem includes: Propranolol 40 Mg Tablet (Propranolol) Hydralazine 25 Mg Tablet (Hydralazine) Amlodipine 5 Mg Tablet (Amlodipine) Radha Nayakshorty Cardiology:THe pt randle s hx of congenital heart disease. He had aortic valve replacement (metallic) at [facility] in 1998. 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 He would like to follow with us. Will obtain an echo and obtain records from his prior box office attendant. Radha Nayakshorty Date Name Cardiac Rehab Venous Doppler Bilat eral LE - Reflux CRP, high sensitivit y LIPID PANEL Lipoprotein (a) PROBNP, N TERMINAL Microalb/Creatinine Urine, Random HEMOGLOBIN A1c BASIC METABOLIC PANE L W/EGFR Sleep Study Home Complete Echo PROTHROMBIN TIME WIT H INR Complete Echo HISTORY OF PROCEDURES Procedure Date Procedure Name Provider Procedure Notes S tatus EKG Lane Alfred MD completed
== END 2024-08-19 18:03 | disposition home or self-care (01) ==
LOC: ANHED 17:44
PROVIDERS: Emergency Provider Physician Assistant; PCP Physician Assistant
DX: R44.1 Visual hallucinations (principal); F17.210 Nicotine dependence, cigarettes, uncomplicated; I10 Essential (primary) hypertension
CPT/HCPCS: 99281